=== PATIENT | male | born 1930 | race Caucasian/White ===

== ENCOUNTER 2016-07-18 05:22 | Inpatient (IN) | payer MEDICARE, OTHER ==
[~2016-07-18] VITALS: Ht 182.9 cm; Wt 74.4 kg
[2016-07-18] VITALS (18 sets, daily range): BP systolic 85–125; BP diastolic 49–85
--- NOTE | 2016-07-18 05:30 | NUR ---
86 yo male bb ra from snf. 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 pt ds to er bed by ems. pt gowned, placed on court monitor. skin warm and dry, rr even and unlabored. awaiting orders from proivder, will continue to montior
--- NOTE | 2016-07-18 05:40 | NUR ---
20g right hand iv started, blood sample obtained and sent to lab
[2016-07-18] MEDS ORDERED: ALBUTEROL FS 2.5 MG/3 ML VIAL.NEB ONE (05:41)
--- NOTE | 2016-07-18 05:42 | NUR ---
rt at bed side for breathing treatment
--- NOTE | 2016-07-18 05:42 | NUR ---
bg 141, notfied
[2016-07-18] MEDS ORDERED: ALBUTEROL FS 2.5 MG/3 ML VIAL.NEB NEB ONE (06:00)
[2016-07-18 06:04] LABS: BASOPHILS % (AUTO) 0.3 % (0.0-2.0); EOSINOPHILS # (AUTO) 0.2 /CMM (0.0-0.7); EOSINOPHILS % (AUTO) 1.6 % (0.0-6.0); HEMATOCRIT 32 % (39-51); HEMOGLOBIN 10.3 g/dL (13.5-17.5); LYMPHOCYTES # (AUTO) 2.8 /CMM (0.8-4.8); LYMPHOCYTES % (AUTO) 19.5 % (20.0-44.0); MEAN CORPUSCULAR HEMOGLOBIN 28 PG (26.0-33.0); MEAN CORPUSCULAR HGB CONC 32 g/dl (31.0-36.0); MEAN CORPUSCULAR VOLUME 85 fL (80-96); MONOCYTES # (AUTO) 0.4 /CMM (0.1-1.30); MONOCYTES % (AUTO) 2.5 % (2.0-12.0); NEUTROPHILS # (AUTO) 10.9 /CMM (1.8-8.9); NEUTROPHILS % (AUTO) 76.1 % (43.0-81.0); PLATELET COUNT (AUTO) 230 /CMM (150-450); RED BLOOD CELL COUNT(AUTO) 3.74 MIL/uL (4.5-6.0); WHITE BLOOD COUNT (AUTO) 14.3 K/uL (4.3-11.0)
--- NOTE | 2016-07-18 06:13 | NUR ---
quality assurance qa lab technician at bed side for x ray
[2016-07-18] MEDS ORDERED: CALC1TAB30 PO (06:14)
[2016-07-18] MEDS ORDERED: DONE23TA3 PO (06:14)
[2016-07-18] MEDS ORDERED: ICOS1CAP PO (06:14)
[2016-07-18] MEDS ORDERED: PANT40SU PO (06:14)
[2016-07-18] MEDS ORDERED: MIRT30TA7 PO (06:14)
[2016-07-18] MEDS ORDERED: CYAN250014 PO (06:14)
[2016-07-18] MEDS ORDERED: MELA1TAB15 PO (06:14)
[2016-07-18] MEDS ORDERED: ONDA4TAB8 SL (06:14)
[2016-07-18] MEDS ORDERED: MEMA10TA21 PO (06:14)
[2016-07-18] MEDS ORDERED: METF500T4 PO (06:14)
[2016-07-18] MEDS ORDERED: CELE-85 PO (06:14)
[2016-07-18] MEDS ORDERED: AMLO5TAB2 PO (06:14)
[2016-07-18 06:16] LABS: CALCIUM, SERUM 9.4 mg/dL (8.5-10.1); CARBON DIOXIDE 26 mmol/L (21-32); CHLORIDE 98 mmol/L (98-107); CREATININE 1.1 mg/dL (0.6-1.3); GLUCOSE 159 mg/dL (74-106); SODIUM SERUM 134 mmol/L (136-145); UREA NITROGEN, BLOOD 13 mg/dL (7-18)
[2016-07-18 06:20] LABS: INR 0.95 (0.87-1.13); PROTHROMBIN TIME 10.3 SECS (9.5-12.7)
[2016-07-18 06:24] LABS: TROPONIN I < 0.017 ng/mL (0.00-0.056)
[2016-07-18 06:27] LABS: LACTIC ACID 2.9 mmol/L (0.4-2.0)
[2016-07-18] MEDS ORDERED: IV NS 0.9% 500 ML IV ONE (06:27)
[2016-07-18] MEDS ORDERED: IV SET PRIMARY PUMP SET 1 EA INFUS.SET MC ONE ×3 (06:27→09:04)
[2016-07-18 06:29] LABS: ALANINE AMINOTRANSFERASE 16 U/L (12-78); ALBUMIN 3.1 g/dL (3.4-5.0); ALKALINE PHOSPHATASE 87 U/L (46-116); ASPARTATE AMINOTRANSFERASE 16 U/L (15-37); B-TYPE NATRIURETIC PEPTIDE 141 PG/ML (0-125); BILIRUBIN,DIRECT 0.1 mg/dL (0.0-0.2); BILIRUBIN,TOTAL 0.4 mg/dL (0.2-1.0); TOTAL PROTEIN, SERUM 8.2 g/dL (6.4-8.2)
[2016-07-18] MEDS ORDERED: IV NS 0.9% 500 ML BAG IV ONE (06:30)
--- NOTE | 2016-07-18 06:33 | NUR ---
medicated pt as ordered
[2016-07-18] MEDS ORDERED: CT SWABBABLE VALVE TRANS SET 1 EA INFUS.SET MC ONE (07:16)
[2016-07-18] MEDS ORDERED: IV NS 0.9% 250 ML IV ONE (07:16)
[2016-07-18] MEDS ORDERED: IOHEXOL-350 100 ML VIAL IV ONE (07:16)
--- NOTE | 2016-07-18 07:47 | NUR ---
TEMP 99.3 MD MADE AWARE.
[2016-07-18] MEDS ORDERED: PIPERACILLIN /TAZOBACTAM 3.375 G VIAL IV ONE (08:10)
[2016-07-18] MEDS ORDERED: ACETAMINOPHEN ES 500 MG TABLET ONE (08:16)
[2016-07-18] MEDS ORDERED: ACETAMINOPHEN ES 500 MG TABLET PO ONE (08:30)
[2016-07-18] MEDS: PIPERACILLIN /TAZOBACTAM 3.375 G in IV D5W 50 ML IV ONE ×2 (08:30→09:18)
--- NOTE | 2016-07-18 08:56 | NUR ---
GAVE REPORT TO LENA SAUNDERSMOLD SHEET CLEANER UNIT
--- NOTE | 2016-07-18 08:57 | NUR ---
DARCIE -- CALLED EPIC
[2016-07-18] MEDS ORDERED: IV NS 0.9% 1,000 ML BAG IV ONE ×2 (09:00→10:00)
[2016-07-18] MEDS ORDERED: VANCOMYCIN 1 GM in IV D5W 250 ML IV ONE (09:00)
[2016-07-18] MEDS ORDERED: IV NS 0.9% 1,000 ML ONE ×2 (09:04→09:40)
[2016-07-18 09:06] LABS: APPEARANCE,URINE CLEAR (CLEAR); BILIRUBIN,URINE NEGATIVE (NEGATIVE); BLOOD, URINE NEGATIVE Ery/uL (NEGATIVE); COLOR,URINE YELLOW (YELLOW); KETONES,URINE NEGATIVE (NEGATIVE); LEUKOCYTE ESTERASE ,URINE NEGATIVE (NEGATIVE); NITRITE, URINE NEGATIVE (NEGATIVE); PROTEIN,URINE NEGATIVE (NEGATIVE); UGLUCOSE NEGATIVE (NEGATIVE); UROBILINOGEN,URINE 0.2 EU/dL (0.2)
[2016-07-18] MEDS ORDERED: SECONDARY IV SET 1 EA INFUS.SET MC ONE ×3 (09:07→20:09)
--- NOTE | 2016-07-18 09:24 | NUR ---
[facility] CALLED, DR DAMICO ANTHROPOLOGY PROFESSOR [phone]
--- NOTE | 2016-07-18 10:11 | NUR ---
CALLED ICU SÁNCHEZ SAUNDERS GAVE REPORT
--- NOTE | 2016-07-18 10:45 | NUR ---
EYELET ROW MARKER; ADMIT RECEIVED PT FROM ER VIA GURNEY, RECEIVING LAST OF HIS NORMAL SALINE BOLUS PER SEPSIS PROTOCOL. PT IS AWAKE AND ORIENTD X3. PT DENIES ANY PAIN. PLACED PT ON DIESEL TRUCK DRIVER SHOWING SINUS TACHYCARDIA. IV SITES TO RIGHT AC 20G, RIGHT HAND 20G. PT IS CONTINENT OF URINE USING URINAL. NO ACUTE DISTRESS NOTED WILL CONTINUE TO MONITOR.
--- NOTE | 2016-07-18 10:45 | NUR ---
TRANSFER PT VIA GURNEY TO ICU ACLS PROTOCOL OBSERVED.
[2016-07-18] MEDS ORDERED: NORMAL SALINE FLUSH 10 ML SYR IV PRN (11:00)
[2016-07-18] MEDS ORDERED: ONDANSETRON HCL/PF 4 MG/2 ML VIAL IVP PRN (11:00)
[2016-07-18] MEDS: NORMAL SALINE FLUSH 10 ML SYR IV SCH ×3 (11:49→21:09)
[2016-07-18] MEDS: IV NS 0.9% 1,000 ML IV PRN (11:49)
[2016-07-18] MEDS ORDERED: PIPERACILLIN /TAZOBACTAM 4.5 G in IV D5W 50 ML IV SCH (12:00)
[2016-07-18] MEDS ORDERED: Z GUARD REMEDY 2 OZ OINT TP PRN ×2 (12:00→13:30)
[2016-07-18] MEDS ORDERED: VANCOMYCIN 1.25 GM in IV D5W 500 ML IV SCH (13:00)
[2016-07-18] MEDS ORDERED: Z GUARD REMEDY 4 OZ OINT TP PRN (13:00)
--- NOTE | 2016-07-18 13:00 | NUR ---
WOUND CARE CONSULT: PATIENT SEEN AND SKIN ASSESSMENT DONE. PATIENT ALERT, ORIENTED, ABLE TO MAKE NEEDS KNOWN, URGE INCONTINENCE, ABLE TO TURN AND REPOSITION INDEPENDENTLY HOWEVER NEEDS PROMPTING, PRIYANKA 16. SEE TODAY'S SKIN ASSESSMENT IN PCS ALONG WITH RECOMMENDATIONS DISCUSSED WITH NURSING STAFF INCLUDING MOISTURE PROTECTION WITH Z GUARD ORDERED, PROMPT PATIENT TO TURN AND REPOSITION EVERY 2 HRS PATIENT CONDITION PERMITS, OFFLOADING. MD IN AGREEMENT WITH PLAN OF CARE. Addendum: 07/18/16 at 1306 by ONELIA MATIAS WNDNU Amended: Links added.
[2016-07-18] MEDS ORDERED: FEE PK DOSING 1 MIN EA MC ONE (13:09)
[2016-07-18] MEDS: PIPERACILLIN /TAZOBACTAM 3.375 G in IV D5W 50 ML IV SCH ×3 (14:16→23:01)
--- NOTE | 2016-07-18 16:30 | NUR ---
SCHOOL SOCIAL WORKER; PRIMARY DR. DAMICO AT BEDSIDE UPDATE WAS GIVEN. DISCUSSED LACTIC RESULTS. NEW ORDER GIVEN TO REPEAT LACTIC ACID.
[2016-07-18] MEDS ORDERED: Z GUARD REMEDY 2 OZ OINT TP SCH (17:00)
--- NOTE | 2016-07-18 19:53 | NUR ---
DONOR RECRUITER NOTES RECEIVED PT IN BED. AWAKE. A/OX3. ON O2 VIA NC AT 2 LPM, RHONA WELL. TELE READS SR AT 85 BPM. NO S/S OF ACUTE DISTRESS. PT DENIES PAIN. FINISHING DINNER AT THIS TIME. IV LINES AT RIGHT HAND 20G, RIGHT AC 20G, RUNNING NS AT 100 ML/HR. ALL NEEDS MET. PT COMFORTABLY WATCHING TV. SIDE RAILS X2, CALL LIGHT WITHIN REACH.
[2016-07-18] MEDS: VANCOMYCIN 0.75 GM in IV D5W 250 ML IV SCH (20:39)
[2016-07-19] VITALS (24 sets, daily range): BP systolic 92–137; BP diastolic 51–85
[2016-07-19] MEDS: IV NS 0.9% 1,000 ML IV PRN ×2 (00:20→11:05)
[2016-07-19 04:59] LABS: BASOPHILS % (AUTO) 0.2 % (0.0-2.0); EOSINOPHILS # (AUTO) 0.4 /CMM (0.0-0.7); EOSINOPHILS % (AUTO) 3.7 % (0.0-6.0); HEMATOCRIT 28 % (39-51); HEMOGLOBIN 9.2 g/dL (13.5-17.5); LYMPHOCYTES % (AUTO) 8.5 % (20.0-44.0); MEAN CORPUSCULAR HEMOGLOBIN 28 PG (26.0-33.0); MEAN CORPUSCULAR HGB CONC 33 g/dl (31.0-36.0); MEAN CORPUSCULAR VOLUME 85 fL (80-96); MONOCYTES # (AUTO) 0.4 /CMM (0.1-1.30); MONOCYTES % (AUTO) 3.6 % (2.0-12.0); NEUTROPHILS # (AUTO) 10.3 /CMM (1.8-8.9); PLATELET COUNT (AUTO) 208 /CMM (150-450); RDW COEFFICIENT OF VARIATION 19.3 (11.5-15.0); RED BLOOD CELL COUNT(AUTO) 3.33 MIL/uL (4.5-6.0); WHITE BLOOD COUNT (AUTO) 12.3 K/uL (4.3-11.0)
[2016-07-19 05:14] LABS: CALCIUM, SERUM 8.4 mg/dL (8.5-10.1); MAGNESIUM 1.6 mg/dL (1.8-2.4); PHOSPHORUS 3.2 mg/dL (2.5-4.9); POTASSIUM 4.3 mmol/L (3.5-5.1)
[2016-07-19] MEDS: NORMAL SALINE FLUSH 10 ML SYR IV SCH ×3 (05:21→20:14)
[2016-07-19] MEDS: PIPERACILLIN /TAZOBACTAM 3.375 G in IV D5W 50 ML IV SCH ×3 (05:21→17:47)
--- NOTE | 2016-07-19 07:05 | NUR ---
SET UP MECHANIC HEADING MACHINES NOTES RECEIVED PATIENT AOX2 WITH EPISODES OF CONFUSION , NOT IN ACUTE DISTRESS , RESPIRATIONS EVEN AND UNLABORED , SPO2 OF 98% VIA RA , SR 85 ON BEDSIDE MONITOR , IV OF R HAND # 22 PATENT AND INTACT , IV OF NS @ 100ML/HR INFUSING WELL , ALL NEEDS ATTENDED , BED ON LOW AND LOCKED POSITION , SIDE RAILS X2 ,CALL LIGHT WITHIN REACH , HOB 35 WILL CONTINUE TO MONITOR
[2016-07-19] MEDS: VANCOMYCIN 0.75 GM in IV D5W 250 ML IV SCH (08:24)
[2016-07-19] MEDS: PANTOPRAZOLE 40 MG VIAL IV SCH (08:24)
[2016-07-19] MEDS ORDERED: Magnesium 1GM/D5W 100ML PREMIX 100 ML IV SCH (12:02)
[2016-07-19] MEDS ORDERED: SECONDARY IV SET 1 EA INFUS.SET MC ONE (12:17)
--- NOTE | 2016-07-19 12:30 | NUR ---
MOVIE OPERATOR NOTES DR DAMICO AT BEDSIDE , DISCUSSED PT LABS , STABLE V/S , ON RA SPO2 OF 100% , PER PULMO PT STABLE TO LEAVE ICU , FOLLOW UP HOME MEDICATIONS TO BE REVIEWED , MD AWARE OK TO TRANSFER TO TELE
[2016-07-19] MEDS: MULTIVITAMINS,THERAPEUTIC 1 UDTAB TABLET PO SCH (14:54)
--- NOTE | 2016-07-19 15:37 | NUR ---
PATIENT FINANCIAL SERVICES MANAGER NOTES CALLED DR DAMICO NOTIFIED PT IS POSITIVE FOR MRSA NARES , PER MD ORDER BACTROBAN Q12 APPLIED TO NARES , VERIFIED THAT PT IS DIABETIC , PER HER NOTES THAT CONTINUE ACCUCHECK ACHS BUT NO ORDER , PER MD START PT ON MILD ACHS SLIDING SCALE AND CONTINUE SOFT REGULAR DIET PT IS MALNOURISHED . ORDERS CARRIED OUT
[2016-07-19 15:52] LABS: IRON, SERUM 24 ug/dl (50-175); TOTAL IRON BINDING CAPACITY 254 ug/dl (250-450)
[2016-07-19] MEDS ORDERED: DEXTROSE 50%-WATER 50 ML DISP.SYRIN IV PRN (16:00)
[2016-07-19] MEDS ORDERED: IV NS 0.9% 250 ML IV ONE (17:37)
[2016-07-19] MEDS: BLOOD SUGAR DIAGNOSTIC 1 EACH STRIP IN SCH ×2 (17:47→21:42)
[2016-07-19] MEDS: MUPIROCIN OINT 2% 22 GM TUBE SCH (20:15)
--- NOTE | 2016-07-19 20:40 | NUR ---
MORTAR MIXER NOTES REPORT GIVEN TO CHIP ZHANG FOR TRANSFER TO TELE. PT TRANSFERRED TO ROOM 120-1 USING ACLS PROTOCOL. VSS.
--- NOTE | 2016-07-19 21:04 | NUR ---
TELE-1/DAYTIME CAREGIVER RECEIVED PT TRANSFER FROM ICU ACCOMPANIED BY ICU STAFF. PT PLACED IN ROOM 104-1. VSS AFEBRILE. WILL CONTINUE TO MONITOR.
[2016-07-19] MEDS: MIRTAZAPINE 15 MG TABLET PO SCH (21:42)
[2016-07-20] VITALS: BP 142/78
[2016-07-20] MEDS: PIPERACILLIN /TAZOBACTAM 3.375 G in IV D5W 50 ML IV SCH ×5 (00:16→23:46)
[2016-07-20 04:00] VITALS: BP 92/75
[2016-07-20] MEDS: NORMAL SALINE FLUSH 10 ML SYR IV SCH ×3 (04:59→20:31)
--- NOTE | 2016-07-20 06:28 | NUR ---
RN NOTE CALLED PT'S SON MIRA AND LEFT VOICEMAIL REGARDING PT'S TRANSFER TO TELE ON FIRST FLOOR CURRENTLY IN ROOM 104.
[2016-07-20] MEDS: BLOOD SUGAR DIAGNOSTIC 1 EACH STRIP IN SCH ×4 (06:33→22:15)
[2016-07-20] MEDS: INSULIN REGULAR, HUMAN 100 UNIT/ML 3 ML VIAL SQ PRN ×2 (06:34→16:41)
[2016-07-20 08:00] VITALS: BP 117/81
--- NOTE | 2016-07-20 08:00 | NUR ---
TELE1/RN AM SHIFT INITIAL NOTES RECEIVED PT AWAKE SITTING IN BED. NO ACUTE CHANGE OF CONDITION NOTED, NO FEVER. PT A/O X 3, DENIES OF ANY SYMPTOMS. ON ROOM AIR SATURATING @ 95%, LUNG SOUNDS CLEAR. ON TELE WITH SINUS RHYTHM, HR 79. IV SITE FLUSHED, PATENT, WITH NO S/S OF INFECTION. PT IS COMFORTABLE. SCHEDULED AM MEDS TO BE GIVEN. CL WITHIN REACHED AND SAFETY MAINTAINED. ON GOING MONITORING.
[2016-07-20 08:23] LABS: BASOPHILS % (AUTO) 0.3 % (0.0-2.0); EOSINOPHILS # (AUTO) 0.5 /CMM (0.0-0.7); EOSINOPHILS % (AUTO) 5.2 % (0.0-6.0); HEMATOCRIT 30 % (39-51); HEMOGLOBIN 9.8 g/dL (13.5-17.5); LYMPHOCYTES # (AUTO) 1.4 /CMM (0.8-4.8); LYMPHOCYTES % (AUTO) 16.1 % (20.0-44.0); MEAN CORPUSCULAR HEMOGLOBIN 28 PG (26.0-33.0); MEAN CORPUSCULAR HGB CONC 33 g/dl (31.0-36.0); MEAN CORPUSCULAR VOLUME 85 fL (80-96); MONOCYTES # (AUTO) 0.4 /CMM (0.1-1.30); MONOCYTES % (AUTO) 4.6 % (2.0-12.0); NEUTROPHILS # (AUTO) 6.6 /CMM (1.8-8.9); NEUTROPHILS % (AUTO) 73.8 % (43.0-81.0); PLATELET COUNT (AUTO) 241 /CMM (150-450); RED BLOOD CELL COUNT(AUTO) 3.55 MIL/uL (4.5-6.0); WHITE BLOOD COUNT (AUTO) 8.9 K/uL (4.3-11.0)
[2016-07-20] MEDS: MUPIROCIN OINT 2% 22 GM TUBE SCH ×2 (08:25→20:31)
[2016-07-20] MEDS: AMLODIPINE BESYLATE 5 MG TABLET PO SCH (08:25)
[2016-07-20] MEDS: PANTOPRAZOLE 40 MG VIAL IV SCH (08:25)
[2016-07-20] MEDS: MULTIVITAMINS,THERAPEUTIC 1 UDTAB TABLET PO SCH (08:25)
[2016-07-20 08:27] LABS: CREATININE 1.1 mg/dL (0.6-1.3); MAGNESIUM 1.9 mg/dL (1.8-2.4); PHOSPHORUS 3.1 mg/dL (2.5-4.9)
[2016-07-20 12:00] VITALS: BP 148/76
--- NOTE | 2016-07-20 15:16 | NUR ---
TELE1/RN HOME MEDS - XTANDI XTANDI 40MG TABLET, 24 COUNTS ENDORSED TO PHARMACY FOR DISPENSING.
[2016-07-20 16:00] VITALS: BP 143/81
[2016-07-20] MEDS: XTANDI 40 MG PO SCH (16:35)
[2016-07-20] MEDS: ACETAMINOPHEN 325 MG TABLET PO PRN (17:17)
--- NOTE | 2016-07-20 18:00 | NUR ---
TELE1/RN AFTERNOON ROUNDS NO ACUTE CHANGE OF CONDITION. ON GOING MONITORING.
--- NOTE | 2016-07-20 19:17 | NUR ---
TELE1/RN AM SHIFT END NOTES NO ACUTE CHANGE OF CONDITION NOTED DURING THE SHIFT. ALL NEEDS MET. ENDORSED TO PM NURSE TO CONTINUE CARE. CL WITHIN REACHED, SAFETY MAINTAINED AND ISOLATION OBSERVED.
[2016-07-20 20:00] VITALS: BP 117/68
[2016-07-20] MEDS: MIRTAZAPINE 15 MG TABLET PO SCH (22:09)
[2016-07-21] VITALS: BP 159/83
[2016-07-21] MEDS: ACETAMINOPHEN 325 MG TABLET PO PRN ×2 (02:49→21:49)
[2016-07-21 04:00] VITALS: BP 138/78
[2016-07-21] MEDS: NORMAL SALINE FLUSH 10 ML SYR IV SCH ×3 (05:19→21:43)
[2016-07-21] MEDS: PIPERACILLIN /TAZOBACTAM 3.375 G in IV D5W 50 ML IV SCH ×4 (05:20→23:56)
[2016-07-21] MEDS: BLOOD SUGAR DIAGNOSTIC 1 EACH STRIP IN SCH ×4 (06:32→22:34)
--- NOTE | 2016-07-21 07:00 | NUR ---
TELE1/RN AM SHIFT INITIAL NOTES RECEIVED PT AWAKE SITTING IN BED. NO ACUTE CHANGE OF CONDITION NOTED, NO FEVER. PT A/O X 3, DENIES OF ANY SYMPTOMS. ON ROOM AIR SATURATING @ 95%, LUNG SOUNDS CLEAR. ON TELE WITH SINUS RHYTHM. IV SITE FLUSHED, PATENT, WITH NO S/S OF INFECTION. PT IS COMFORTABLE. SCHEDULED AM MEDS TO BE GIVEN. CL WITHIN REACHED AND SAFETY MAINTAINED. ON GOING MONITORING.
[2016-07-21 08:00] VITALS: BP 127/77
[2016-07-21 08:43] LABS: CALCIUM, SERUM 9.1 mg/dL (8.5-10.1); CREATININE 0.9 mg/dL (0.6-1.3); POTASSIUM 4.8 mmol/L (3.5-5.1)
[2016-07-21] MEDS: MULTIVITAMINS,THERAPEUTIC 1 UDTAB TABLET PO SCH (08:56)
[2016-07-21] MEDS: AMLODIPINE BESYLATE 5 MG TABLET PO SCH (08:56)
[2016-07-21] MEDS: PANTOPRAZOLE 40 MG VIAL IV SCH (08:56)
[2016-07-21] MEDS: MUPIROCIN OINT 2% 22 GM TUBE SCH ×2 (08:57→21:44)
[2016-07-21] MEDS: XTANDI 40 MG PO SCH ×2 (09:06→16:28)
[2016-07-21 12:00] VITALS: BP 128/78
[2016-07-21 16:00] VITALS: BP 103/60
[2016-07-21 20:00] VITALS: BP 127/84
--- NOTE | 2016-07-21 20:00 | NUR ---
MS RN NOTE PT IN BED ASLEEP, AROUSABLE, A/O X 2, DANISH SPEAKING. NO SOB, NO DISTRESS OR DISCOMFORT NOTED. DENIES PAIN. H/L RT WRIST #20 G INTACT AND PATENT. Z GUARD APPLIED PERINEUM AND GLUTEAL EXCORIATION AREA. NO S/S OF HYPO OR HYPERGLYCEMIA NOTED. SIDE RAILS UP X 2 AND CALL LIGHT WITHIN REACH. VSS. CONTINUE TO MONITOR HIM.
[2016-07-21] MEDS: MIRTAZAPINE 15 MG TABLET PO SCH (21:45)
[2016-07-22 04:00] VITALS: BP 118/62
[2016-07-22] MEDS: NORMAL SALINE FLUSH 10 ML SYR IV SCH ×2 (05:20→12:29)
[2016-07-22] MEDS: PIPERACILLIN /TAZOBACTAM 3.375 G in IV D5W 50 ML IV SCH ×2 (05:29→12:14)
[2016-07-22] MEDS: BLOOD SUGAR DIAGNOSTIC 1 EACH STRIP IN SCH ×2 (05:36→12:29)
[2016-07-22] MEDS: INSULIN REGULAR, HUMAN 100 UNIT/ML 3 ML VIAL SQ PRN (06:00)
--- NOTE | 2016-07-22 06:33 | NUR ---
MS RN NOTE PT IN BED ASLEEP, AROUSABLE. NO DISTRESS OR DISCOMFORT NOTED. DENIES PAIN. H/L INTACT AND PATENT, NO S/S OF INFILTRATION NOTED. SIDE RAILS UP X 2 AND CALL LIGHT WITHIN REACH. WILL ENDORSE TO DAY SHIFT NURSE FOR CONTINUE TO CARE.
[2016-07-22 06:47] LABS: BASOPHILS % (AUTO) 0.5 % (0.0-2.0); EOSINOPHILS # (AUTO) 0.5 /CMM (0.0-0.7); EOSINOPHILS % (AUTO) 7.8 % (0.0-6.0); HEMATOCRIT 31 % (39-51); LYMPHOCYTES # (AUTO) 1.4 /CMM (0.8-4.8); MEAN CORPUSCULAR HEMOGLOBIN 28 PG (26.0-33.0); MEAN CORPUSCULAR HGB CONC 33 g/dl (31.0-36.0); MEAN CORPUSCULAR VOLUME 84 fL (80-96); MONOCYTES # (AUTO) 0.4 /CMM (0.1-1.30); MONOCYTES % (AUTO) 6.6 % (2.0-12.0); NEUTROPHILS # (AUTO) 3.7 /CMM (1.8-8.9); NEUTROPHILS % (AUTO) 62.1 % (43.0-81.0); PLATELET COUNT (AUTO) 249 /CMM (150-450); RDW COEFFICIENT OF VARIATION 19.4 (11.5-15.0); RED BLOOD CELL COUNT(AUTO) 3.63 MIL/uL (4.5-6.0)
[2016-07-22 07:20] LABS: MAGNESIUM 1.8 mg/dL (1.8-2.4)
[2016-07-22 08:00] VITALS: BP 127/81
[2016-07-22 08:41] VITALS: BP 128/74
[2016-07-22] MEDS: AMLODIPINE BESYLATE 5 MG TABLET PO SCH (08:41)
[2016-07-22] MEDS: MULTIVITAMINS,THERAPEUTIC 1 UDTAB TABLET PO SCH (08:41)
[2016-07-22] MEDS: MUPIROCIN OINT 2% 22 GM TUBE SCH (08:42)
[2016-07-22] MEDS: XTANDI 40 MG PO SCH (08:45)
[2016-07-22] MEDS: PANTOPRAZOLE 40 MG VIAL IV SCH (09:18)
--- NOTE | 2016-07-22 12:01 | NUR ---
RN NOTES RECEIVED PT FROM ORACLE FUSION MIDDLEWARE ARCHITECT, PT ON ROM AIR, NO SOB NOTED, IV LINE PULLED OUT, NEW IV RESTARTED, IV MEDS GIVEN ORDERED, PT IS ABOUT TO BE DISCHARGED, CALL LIGHT WITHIN REACH, BED IN LOW AND LOCKED POSITION, BED ALARM ON, WILL CONTINUE TO MONITOR.
[2016-07-22] MEDS ORDERED: MUPI22OI7 (12:21)
--- NOTE | 2016-07-22 15:13 | NUR ---
RN NOTE PT DISCHARGED HOME WITH HOME HEALTH, PT IS STABLE, LEAVING WITH SON WITH WHEELCHAIR, IV REMOVED, ID BAND REMOVED, EXIT CARE DONE, DISCHARGE INSTRUCTIONS PROVIDED, PICTURES TAKEN. BELONGINGS LIST SIGNED AND PROVIDED TO PT'S SON.
== END 2016-07-22 15:32 | disposition home health service (06) | DRG 871 ==
LOC: ER 05:24 → TELE 08:40 → ICU 09:19 → TELE1 07-19 20:40 → MEDSG1 07-21 13:40
PROVIDERS: ADMIT Internal Medicine; ATTEND Internal Medicine
DX: A41.9 Sepsis, unspecified organism (principal); G93.40 Encephalopathy, unspecified; E46 Unspecified protein-calorie malnutrition; E11.9 Type 2 diabetes mellitus without complications; E78.5 Hyperlipidemia, unspecified; F03.90 Unspecified dementia, unspecified severity, without behavioral disturbance, psychotic disturbance, mood disturbance, and anxiety; I25.10 Atherosclerotic heart disease of native coronary artery without angina pectoris; K21.9 Gastro-esophageal reflux disease without esophagitis; Z79.84 Long term (current) use of oral hypoglycemic drugs; Z85.46 Personal history of malignant neoplasm of prostate; Z87.11 Personal history of peptic ulcer disease; Z87.891 Personal history of nicotine dependence; Z90.49 Acquired absence of other specified parts of digestive tract; I10 Essential (primary) hypertension; D63.8 Anemia in other chronic diseases classified elsewhere; F09 Unspecified mental disorder due to known physiological condition; R91.8 Other nonspecific abnormal finding of lung field; Z68.22 Body mass index [BMI] 22.0-22.9, adult; Z22.322 Carrier or suspected carrier of Methicillin resistant Staphylococcus aureus; N28.1 Cyst of kidney, acquired
CPT/HCPCS: 36415; 71010-TC; 80048-TC; 80076-TC; 80202-TC; 81000-TC; 82746; 82962-TC; 83540-TC; 83605-TC; 83735-TC; 83880; 84100-TC; 84484-TC; 85025-TC; 85730-TC; 87040-TC; 87081-TC; 87086-TC; 87400; 93307-TC; 97001-TC; 97116-TC; 97530-TC; A4216; A4606; C9113; J1815; J2543; J3370; J3475; J7030; J7040; J7050; J7060; Q9967; Z7610

== ENCOUNTER 2016-08-03 12:25 | Inpatient (IN) | payer MEDICARE, OTHER ==
[~2016-08-03] VITALS: Ht 180.3 cm; Wt 69.4 kg
[~2016-08-03 12:25] MED LIST: AMLO5TAB2 PO; CALC1TAB30 PO; CELE-85 PO; CYAN250014 PO; DONE23TA3 PO; ICOS1CAP PO; MELA1TAB15 PO; MEMA10TA21 PO; METF500T4 PO; MIRT30TA7 PO; MUPI22OI7; ONDA4TAB8 SL; PANT40SU PO
--- NOTE | 2016-08-03 12:41 | NUR ---
PT REC'D TO ER VIA EMS SOB FEVER 100 CHILLS WAS AT [facility] ONE WEEK AGO IV STARTED LEFT WRIST 20G IVP LABS AND CULTURES DRAWN SENT TO LAB O2 SATS 99 N/C 2L 99% AWAITING EVALUATION BY ER PROVIDER.
--- NOTE | 2016-08-03 12:43 | NUR ---
FAMILY AT BEDSIDE . PT LIVES AT HOME WITH RELATIVES
[2016-08-03] MEDS ORDERED: IV NS 0.9% 1,000 ML ONE (12:48)
[2016-08-03] MEDS ORDERED: IV SET PRIMARY PUMP SET 1 EA INFUS.SET MC ONE (12:48)
[2016-08-03 12:51] LABS: BASOPHILS # (AUTO) 0.3 /CMM (0.0-0.2); BASOPHILS % (AUTO) 1.6 % (0.0-2.0); EOSINOPHILS # (AUTO) 0.2 /CMM (0.0-0.7); EOSINOPHILS % (AUTO) 1.3 % (0.0-6.0); HEMATOCRIT 34 % (39-51); LYMPHOCYTES # (AUTO) 1.2 /CMM (0.8-4.8); LYMPHOCYTES % (AUTO) 7.6 % (20.0-44.0); MEAN CORPUSCULAR HEMOGLOBIN 27 PG (26.0-33.0); MEAN CORPUSCULAR HGB CONC 32 g/dl (31.0-36.0); MEAN CORPUSCULAR VOLUME 85 fL (80-96); MONOCYTES # (AUTO) 0.2 /CMM (0.1-1.30); MONOCYTES % (AUTO) 1.2 % (2.0-12.0); NEUTROPHILS # (AUTO) 14.2 /CMM (1.8-8.9); NEUTROPHILS % (AUTO) 88.3 % (43.0-81.0); PLATELET COUNT (AUTO) 267 /CMM (150-450); RDW COEFFICIENT OF VARIATION 17.8 (11.5-15.0); RED BLOOD CELL COUNT(AUTO) 4.01 MIL/uL (4.5-6.0); WHITE BLOOD COUNT (AUTO) 16.1 K/uL (4.3-11.0)
[2016-08-03 12:53] LABS: CARBON DIOXIDE 25 mmol/L (21-32); CHLORIDE 98 mmol/L (98-107); GLUCOSE 144 mg/dL (74-106); POTASSIUM 4.2 mmol/L (3.5-5.1); SODIUM SERUM 132 mmol/L (136-145); UREA NITROGEN, BLOOD 17 mg/dL (7-18)
--- NOTE | 2016-08-03 12:58 | NUR ---
CALLED NURSING SUP. FOR TELE BED
[2016-08-03] MEDS ORDERED: ACETAMINOPHEN ES 500 MG TABLET PO ONE (13:00)
[2016-08-03] MEDS ORDERED: IV NS 0.9% 1,000 ML BAG IV ONE ×2 (13:00→16:30)
[2016-08-03] MEDS ORDERED: VANCOMYCIN 1 GM in IV D5W 250 ML IV ONE ×2 (13:00→16:30)
[2016-08-03] MEDS ORDERED: PIPERACILLIN /TAZOBACTAM 3.375 G in IV D5W 50 ML IV ONE (13:00)
--- NOTE | 2016-08-03 13:00 | NUR ---
PT GIVEN TYENOL 1000MG PO AND IV FLUIDS GIVEN BOLUS NS PER MD
[2016-08-03 13:01] LABS: TROPONIN I < 0.017 ng/mL (0.00-0.056)
[2016-08-03 13:05] LABS: ALANINE AMINOTRANSFERASE 15 U/L (12-78); ALBUMIN 3.3 g/dL (3.4-5.0); ALKALINE PHOSPHATASE 79 U/L (46-116); ASPARTATE AMINOTRANSFERASE 23 U/L (15-37); B-TYPE NATRIURETIC PEPTIDE 150 PG/ML (0-125); BILIRUBIN,DIRECT 0.1 mg/dL (0.0-0.2); BILIRUBIN,TOTAL 0.3 mg/dL (0.2-1.0); TOTAL PROTEIN, SERUM 8.6 g/dL (6.4-8.2)
--- NOTE | 2016-08-03 13:05 | NUR ---
PT GIVEN MEDS IV PER MD ORDER RT WRIST IV STARTED 22GIVP HEPLOCKED
[2016-08-03] MEDS ORDERED: ACETAMINOPHEN ES 500 MG TABLET ONE (13:15)
--- NOTE | 2016-08-03 13:28 | NUR ---
DR.[facility] INTER[facility]
[2016-08-03 13:35] LABS: INR 0.96 (0.87-1.13)
--- NOTE | 2016-08-03 13:35 | NUR ---
PT UA GIVEN SENT TO LAB PENDING XRAY RESULTS LATIC ACID 2.8 NOTIFIED . AWAITING EVALUATION BY ER PROVIDER.
[2016-08-03] MEDS ORDERED: DONE5TAB34 PO (13:40)
--- NOTE | 2016-08-03 13:40 | NUR ---
PT GOING TO TELE 110, AUGUSTIN IS THE NURSE
--- NOTE | 2016-08-03 13:44 | NUR ---
[facility] REPAGED
[2016-08-03 13:48] LABS: LACTIC ACID 2.8 mmol/L (0.4-2.0)
[2016-08-03 13:59] LABS: APPEARANCE,URINE CLEAR (CLEAR); BILIRUBIN,URINE NEGATIVE (NEGATIVE); BLOOD, URINE TRACE-INTA Ery/uL (NEGATIVE); COLOR,URINE YELLOW (YELLOW); KETONES,URINE NEGATIVE (NEGATIVE); LEUKOCYTE ESTERASE ,URINE NEGATIVE (NEGATIVE); NITRITE, URINE NEGATIVE (NEGATIVE); PROTEIN,URINE NEGATIVE (NEGATIVE); UGLUCOSE NEGATIVE (NEGATIVE); UROBILINOGEN,URINE 0.2 EU/dL (0.2)
--- NOTE | 2016-08-03 14:24 | NUR ---
CALLED REPORT TO FLOOR PT STABLE FOR TRANSFER
[2016-08-03 15:00] VITALS: BP 141/67
--- NOTE | 2016-08-03 15:00 | NUR ---
RN NOTES RECEIVED PT FROM ER IN ROOM 105 ,A/Ox3, FARSI SPEAKING, RESPIRATION EVEN AND UNLABORED, ON 02 2L N/C, DENIES ANY DISTRESS AT THIS TIME . T= 98.5. L WRIST G 20 AND R WRIST #22 IV SITES CDI, ON TELE HR 120'S ST , SR UP x3, BED LOCKED AND IN LOW POSITION , REDNESS NOTED TO SACRAL AREA AND BRUISING ON R UPPER ARM AND R HIP AND R KNEE , ADMISSION SKIN PHOTO TAKE AND PLACED IN THE CHART. CONTINUE TO MONITOR PT CLOSELY AND NOTIFY MD FOR ANY SIGNIFICANT CHANGES
[2016-08-03 15:16] LABS: ADD URINE CULTURE NO; BACTERIA,URINE None seen /HPF (None Seen); SQUAMOUS EPITHELIAL CELL,UR Rare /HPF (None Seen); WBC,URINE 0-2 /HPF (0-3)
[2016-08-03 16:00] VITALS: BP 135/68
[2016-08-03] MEDS ORDERED: ONDANSETRON HCL/PF 4 MG/2 ML VIAL IVP PRN (16:30)
[2016-08-03] MEDS ORDERED: SECONDARY IV SET 1 EA INFUS.SET MC ONE (16:34)
[2016-08-03] MEDS ORDERED: FEE PK DOSING 1 MIN EA MC ONE (17:02)
[2016-08-03] MEDS: PIPERACILLIN /TAZOBACTAM 3.375 G in IV D5W 50 ML IV SCH ×2 (17:57→22:34)
--- NOTE | 2016-08-03 18:31 | NUR ---
RN NOTES PT AT REST RECEIVING IVF NS BOLUS , DR SHELDON NOTIFIED REGARDING LA =2.6. PT MEDICATED PER MD ORDER, VSS STABLE, PT BRUNO ANY DISTRESS AT THIS TIME, NO SIGNIFICANT CHANGES NOTED ON THIS SHIFT
[2016-08-03] MEDS ORDERED: PIPERACILLIN /TAZOBACTAM 3.375 G in IV D5W 50 ML IV SCH (19:00)
[2016-08-03 20:00] VITALS: BP 103/66
[2016-08-04] VITALS: BP 98/59
[2016-08-04] MEDS: VANCOMYCIN 0.75 GM in IV D5W 250 ML IV SCH ×2 (00:32→12:00)
[2016-08-04] MEDS ORDERED: SECONDARY IV SET 1 EA INFUS.SET MC ONE (00:33)
[2016-08-04] MEDS ORDERED: IV NS 0.9% 250 ML IV ONE ×2 (00:33→16:07)
[2016-08-04 03:17] LABS: EOSINOPHILS # (AUTO) 0.6 /CMM (0.0-0.7); EOSINOPHILS % (AUTO) 3.4 % (0.0-6.0); HEMATOCRIT 29 % (39-51); HEMOGLOBIN 9.5 g/dL (13.5-17.5); LYMPHOCYTES # (AUTO) 1.5 /CMM (0.8-4.8); MEAN CORPUSCULAR HEMOGLOBIN 28 PG (26.0-33.0); MEAN CORPUSCULAR HGB CONC 33 g/dl (31.0-36.0); MEAN CORPUSCULAR VOLUME 85 fL (80-96); MONOCYTES # (AUTO) 0.5 /CMM (0.1-1.30); MONOCYTES % (AUTO) 2.8 % (2.0-12.0); NEUTROPHILS # (AUTO) 14.1 /CMM (1.8-8.9); NEUTROPHILS % (AUTO) 84.8 % (43.0-81.0); PLATELET COUNT (AUTO) 245 /CMM (150-450); RDW COEFFICIENT OF VARIATION 19.2 (11.5-15.0); RED BLOOD CELL COUNT(AUTO) 3.39 MIL/uL (4.5-6.0); WHITE BLOOD COUNT (AUTO) 16.6 K/uL (4.3-11.0)
[2016-08-04 03:32] LABS: ALANINE AMINOTRANSFERASE 11 U/L (12-78); ALBUMIN 2.4 g/dL (3.4-5.0); ALKALINE PHOSPHATASE 65 U/L (46-116); ASPARTATE AMINOTRANSFERASE 15 U/L (15-37); BILIRUBIN,TOTAL 0.5 mg/dL (0.2-1.0); CALCIUM, SERUM 8.8 mg/dL (8.5-10.1); CARBON DIOXIDE 28 mmol/L (21-32); CHLORIDE 104 mmol/L (98-107); CREATININE 0.9 mg/dL (0.6-1.3); GLUCOSE 123 mg/dL (74-106); POTASSIUM 4.1 mmol/L (3.5-5.1); SODIUM SERUM 139 mmol/L (136-145); UREA NITROGEN, BLOOD 10 mg/dL (7-18)
[2016-08-04 03:35] LABS: TROPONIN I < 0.017 ng/mL (0.00-0.056)
[2016-08-04 04:00] VITALS: BP 103/85
[2016-08-04] MEDS: PIPERACILLIN /TAZOBACTAM 3.375 G in IV D5W 50 ML IV SCH ×4 (04:31→23:06)
--- NOTE | 2016-08-04 05:00 | NUR ---
MOTOR VEHICLES INSPECTOR - REC'D PT. LAST NOC, DROWSY, EASILY AROUSABLE. PT'S SON-MIRA AT BS. HE STATED THAT HE FORGOT TO MENTION THE MED. "[id number]'"-ON HIS HOME MEDS LIST. PT. IS ON O2/2L/NC W. O2 SATS >96%. T-MAX = 99.0 AX. ALL PULSES PALPABLE. PT.IS DIAPERED/INCONTINENT. POOR APPETITE. PIV'S X 2 ARE BOTH PATENT TO FLUSH. PT. HAS LACTIC ACID LAB DRAWS Q 6 HRS. THEY ARE TRENDING DOWN. A COMP. BEDBATH ADM. AT 23:00. CONT. POC.
--- NOTE | 2016-08-04 05:30 | NUR ---
LIVESTOCK FEEDER - 3AM LACTIC ACID = 1.8. TRENDING DOWN. NOTED.
[2016-08-04 08:00] VITALS: BP 93/53
--- NOTE | 2016-08-04 08:00 | NUR ---
satellite television installer note patient in bed , all needs attended ,on 2l o23 via nc sat 98% lt wrist and rt wrist hl intact , no s\si infection noted , bed in lowest and locked position will cont to monitor closely no sob noted call light within reach ,plan of care discussed with patent
[2016-08-04 09:14] LABS: CALCIUM, SERUM 8.9 mg/dL (8.5-10.1); CREATININE 0.9 mg/dL (0.6-1.3); POTASSIUM 4.1 mmol/L (3.5-5.1)
--- NOTE | 2016-08-04 09:40 | NUR ---
INDER SAUNDERS NOTE HAVING BREAKFAST , ABLE TO EAT HI ATE 755 OG DIET , WILL CONT TO MONITOR CLOSELY Addendum: 08/04/16 at 0941 by JOSE ZAYAS RN ABLE TO EAT SELF
[2016-08-04 12:00] VITALS: BP 115/67
--- NOTE | 2016-08-04 12:00 | NUR ---
REGULATION SUPERVISOR NOTE HAVING LUNCH , ABLE TO EAT SELF , NOT IN ACUTE DISTRES
--- NOTE | 2016-08-04 14:00 | NUR ---
HYPERION ADMINISTRATOR NOTE PER RAMANA STAY DNP OK TO PLACE DVT PUMPS, ALSO PER FAMILY REQUEST GAVE PHONE NUMBER OF SON ,TO RAMANA HARO , HE WANTS TO TALK WITH HIM
--- NOTE | 2016-08-04 14:56 | NUR ---
PIPE CLEANER NOTE INFORM RAMANA HARO DNP TO CHECK MEDRECON
[2016-08-04 16:00] VITALS: BP_SYST 131; BP_DIAS 67; BP_DIAS 68
[2016-08-04] MEDS: ACETAMINOPHEN 325 MG TABLET PO PRN ×2 (16:06→23:09)
--- NOTE | 2016-08-04 16:20 | NUR ---
CHAR FILTER TANK TENDER HEAD NOTE C\O BACK PAIN TYLENOL PO GIVEN ORDERED
--- NOTE | 2016-08-04 17:38 | NUR ---
television analyzer note family at bedside,not in acute distress
--- NOTE | 2016-08-04 19:30 | NUR ---
LUMBER STACKER OPERATOR INITIAL NOTES RECEIVED PATIENT AWAKE, DENIES PAIN OR DISCOMFORT. NO RESPIRATORY DISTRESS NOTED 2LPMO2 VIA NC. SKIN WARM AND DRY TO TOUCH. ON TELE MONITOR SINUS RHYTHM. WITH LW 20G PATENT AND INTACT TKO. SIDE RAILS UP AND LOCKED. BED KEPT AT LOWEST POSITION. CALL LIGHT KEPT WITHIN EASY REACH. CALL LIGHT KEPT WITHIN EASY REACH. WILL CONTINUE TO MONITOR.
[2016-08-04 20:00] VITALS: BP 111/62
[2016-08-05] VITALS: BP 123/64
[2016-08-05] MEDS: VANCOMYCIN 0.75 GM in IV D5W 250 ML IV SCH ×2 (01:06→13:39)
[2016-08-05 04:00] VITALS: BP 132/71
[2016-08-05] MEDS ORDERED: IV NS 0.9% 250 ML IV ONE (04:56)
[2016-08-05] MEDS: PIPERACILLIN /TAZOBACTAM 3.375 G in IV D5W 50 ML IV SCH ×4 (05:14→23:33)
--- NOTE | 2016-08-05 06:13 | NUR ---
PHP DEVELOPER CLOSING NOTES NO SIGNIFICANT CHANGES OVERNIGHT. ALL NEEDS ANTICIPATED AND MET. ALL DUE MEDS GIVEN. NO RESPIRATORY DISTRESS NOTED. ON 2LPMO2 VIA NC. KEPT CLEAN AND DRY. TURNED AND REPOSITIONED Q2 AND PRN. PATIENT ABLE TO MAKE NEEDS KNOWN. SIDE RAILS UP AND LOCKED. BED KEPT AT LOWEST POSITION. CALL LIGHT KEPT WITHIN EASY REACH. BED ALARM ON. HOB ELEVATED. WILL ENDORSE CONTINUITY OF CARE TO AM NURSE.
[2016-08-05 06:49] LABS: BASOPHILS % (AUTO) 0.2 % (0.0-2.0); EOSINOPHILS # (AUTO) 0.5 /CMM (0.0-0.7); EOSINOPHILS % (AUTO) 6.9 % (0.0-6.0); HEMATOCRIT 29 % (39-51); HEMOGLOBIN 9.4 g/dL (13.5-17.5); LYMPHOCYTES # (AUTO) 1.2 /CMM (0.8-4.8); LYMPHOCYTES % (AUTO) 17.9 % (20.0-44.0); MEAN CORPUSCULAR HEMOGLOBIN 28 PG (26.0-33.0); MEAN CORPUSCULAR HGB CONC 33 g/dl (31.0-36.0); MEAN CORPUSCULAR VOLUME 84 fL (80-96); MONOCYTES # (AUTO) 0.3 /CMM (0.1-1.30); NEUTROPHILS # (AUTO) 4.6 /CMM (1.8-8.9); PLATELET COUNT (AUTO) 231 /CMM (150-450); RDW COEFFICIENT OF VARIATION 18.9 (11.5-15.0); RED BLOOD CELL COUNT(AUTO) 3.37 MIL/uL (4.5-6.0); WHITE BLOOD COUNT (AUTO) 6.5 K/uL (4.3-11.0)
--- NOTE | 2016-08-05 07:15 | NUR ---
RN INITIAL NOTES PT IS IN BED, HOB ELEVATED AT 35 DEGREES. SIDERAILS X3, A/O X2, REORIENT PT TO ROOM, PT IS ON 2L NS, SATURATION OF 98%, IV SITES IS PATENTNO SIGNS AND SYMPTOMS OF INFECTION OR INFILTRATION. CALL LIGHTS WITHIN REACH.
[2016-08-05 07:21] LABS: CALCIUM, SERUM 8.6 mg/dL (8.5-10.1); CREATININE 0.9 mg/dL (0.6-1.3); MAGNESIUM 1.7 mg/dL (1.8-2.4); PHOSPHORUS 3.2 mg/dL (2.5-4.9); POTASSIUM 3.9 mmol/L (3.5-5.1)
[2016-08-05 08:00] VITALS: BP 117/72
--- NOTE | 2016-08-05 08:56 | NUR ---
WOUND CARE CONSULT: PT PRESENTS WITH GLUTEAL CREASE EXCORIATION, PRESENT ON ADMISSION. PT ABLE TO ASSIST WITH TURNING AND REPOSITIONING IN BED WHEN PROMPTED. PT ON BAKARI ISOFLEX LOW AIRLOSS BED. PT NOTED TO HAVE SACRAL DIMPLE. ALL SKIN PROTECTION MEASURES IN PLACE AND DISCUSSED WITH NURSING STAFF. IN AGREEMENT WITH PLAN OF CARE. Addendum: 08/05/16 at 0859 by MIGUELANGEL KHOURY WNDNU Amended: Links added.
[2016-08-05] MEDS: Magnesium 1GM/D5W 100ML PREMIX 100 ML IV SCH ×2 (10:18→11:41)
[2016-08-05] MEDS: Z GUARD REMEDY 2 OZ OINT TP SCH (10:18)
[2016-08-05] MEDS ORDERED: SECONDARY IV SET 1 EA INFUS.SET MC ONE (10:21)
--- NOTE | 2016-08-05 14:25 | NUR ---
RN NOTES: Seen and examined by Dr. Joesph Chavez today with NNO. MD informed to reconcile medications.
[2016-08-05 16:00] VITALS: BP_SYST 144; BP_DIAS 80; BP_DIAS 88
--- NOTE | 2016-08-05 19:28 | NUR ---
RN CLOSING NOTES PT IS IN BED, NO SIGNS AND SYMPTOMS OF DISTRESS NOTED, PT IS ON 2L NC, SATURATION OF 99%, PT WAS ASSISTED WITH TURNING AND REPOSITIONING, IV SITES PATENT, NO SIGNS AND SYMPTOMS OF INFECTION/INFILTRATION NOTED, ALL MEDICATIONS GIVEN AND PT TOLERATED IT WELL. SAFETY MEASURES MAINTAINED, CALL LIGHTS WITHIN REACH. ENDORSED TO THE NIGHT NURSE
[2016-08-05 20:00] VITALS: BP 135/69
--- NOTE | 2016-08-05 20:08 | NUR ---
MS RN PT IN BED AWAKE. A/O X 2 ARABIC SPEAKING. NO SOB, NO DISTRESS OR DISCOMFORT NOTED. DENIES PAIN. REMAIN ON O2 2L VIA NC O2 SAT 94%. KEPT HOB ELEVATED. L WRIST #20 G SL WITH TKO. NO S/S OF INFILTRATION NOTED. SIDE RAILS UP X 2 AND CALL LIGHT WITHIN REACH. VSS. CONTINUE TO MONITOR HIM.
[2016-08-05] MEDS: MIRTAZAPINE 15 MG TABLET PO SCH (21:35)
[2016-08-05] MEDS: ACETAMINOPHEN 325 MG TABLET PO PRN (21:35)
--- NOTE | 2016-08-05 21:35 | NUR ---
MS RN PT C/O HEADACHE 07/12, TYLENOL 650 MG PO GIVEN. CONTINUE TO MONITOR HIM.
[2016-08-05 22:00] VITALS: BP 135/69
--- NOTE | 2016-08-05 22:35 | NUR ---
MS RN HEADACHE SUBSIDED 05/14. PT FALL ASLEEP, AROUSABLE.
[2016-08-06] MEDS: VANCOMYCIN 0.75 GM in IV D5W 250 ML IV SCH ×2 (01:03→14:11)
[2016-08-06 04:00] VITALS: BP 125/74
[2016-08-06] MEDS: PIPERACILLIN /TAZOBACTAM 3.375 G in IV D5W 50 ML IV SCH ×4 (04:18→22:16)
[2016-08-06] MEDS: ACETAMINOPHEN 325 MG TABLET PO PRN ×2 (04:18→08:30)
--- NOTE | 2016-08-06 04:20 | NUR ---
MS RN PT C/O HEADACHE 07/12, TYLENOL 650 MG PO GIVEN. CONTINUE TO MONITOR HIM.
--- NOTE | 2016-08-06 05:20 | NUR ---
MS RN HEADACHE SUBSIDED 05/14. PT FALL ASLEEP. NO DISTRESS NOTED.
[2016-08-06 06:36] LABS: BASOPHILS % (AUTO) 0.3 % (0.0-2.0); EOSINOPHILS # (AUTO) 0.4 /CMM (0.0-0.7); EOSINOPHILS % (AUTO) 6.5 % (0.0-6.0); HEMATOCRIT 29 % (39-51); HEMOGLOBIN 9.4 g/dL (13.5-17.5); LYMPHOCYTES # (AUTO) 1.3 /CMM (0.8-4.8); LYMPHOCYTES % (AUTO) 20.3 % (20.0-44.0); MEAN CORPUSCULAR HEMOGLOBIN 28 PG (26.0-33.0); MEAN CORPUSCULAR HGB CONC 33 g/dl (31.0-36.0); MEAN CORPUSCULAR VOLUME 84 fL (80-96); MONOCYTES # (AUTO) 0.4 /CMM (0.1-1.30); MONOCYTES % (AUTO) 5.4 % (2.0-12.0); NEUTROPHILS # (AUTO) 4.4 /CMM (1.8-8.9); NEUTROPHILS % (AUTO) 67.5 % (43.0-81.0); PLATELET COUNT (AUTO) 227 /CMM (150-450); RDW COEFFICIENT OF VARIATION 18.9 (11.5-15.0); WHITE BLOOD COUNT (AUTO) 6.6 K/uL (4.3-11.0)
--- NOTE | 2016-08-06 06:45 | NUR ---
MS RN NOTE PT IN BED ASLEEP, AROUSABLE. NO DISTRESS OR DISCOMFORT NOTED. DENIES PAIN. SIDE RAILS UP X 2 AND CALL LIGHT WITHIN REACH. WILL ENDORSE TO DAY SHIFT NURSE FOR CONTINUE TO CARE.
[2016-08-06 07:13] LABS: CALCIUM, SERUM 8.6 mg/dL (8.5-10.1); CREATININE 0.9 mg/dL (0.6-1.3); PHOSPHORUS 3.2 mg/dL (2.5-4.9); POTASSIUM 3.9 mmol/L (3.5-5.1)
--- NOTE | 2016-08-06 07:20 | NUR ---
RN INITIAL NOTES PT IS IN BED, HOB ELEVATED AT 35 DEGREES. SIDERAILS X3, A/O X2, REORIENT PT TO ROOM NO SIGNS AND SYMPTOMS OF DISTRESS NOTED. IV 20G LEFT WRIST SITES IS PATENT, NO SIGNS AND SYMPTOMS OF INFECTION OR INFILTRATION. CALL LIGHTS WITHIN REACH
[2016-08-06 08:00] VITALS: BP 131/74
[2016-08-06] MEDS: MEMANTINE HCL 5 MG TABLET PO SCH ×2 (08:22→16:35)
[2016-08-06] MEDS: DONEPEZIL 5 MG TABLET PO SCH (08:23)
[2016-08-06] MEDS: AMLODIPINE BESYLATE 5 MG TABLET PO SCH (08:26)
[2016-08-06] MEDS: Z GUARD REMEDY 2 OZ OINT TP SCH (08:29)
[2016-08-06] MEDS ORDERED: LEVO500T15 PO (13:47)
[2016-08-06 16:00] VITALS: BP 134/74
--- NOTE | 2016-08-06 18:55 | NUR ---
RN CLOSING NOTES PT IS IN BED, NO SIGNS AND SYMPTOMS OF DISTRESS NOTED, PT IS ON 2L NC, SATURATING WELL, PT WAS ASSISTED WITH TURNING AND REPOSITIONING, IV SITES PATENT, NO SIGNS AND SYMPTOMS OF INFECTION/INFILTRATION NOTED, ALL MEDICATIONS GIVEN AND PT TOLERATED IT WELL. SAFETY MEASURES MAINTAINED, CALL LIGHTS WITHIN REACH. ENDORSED TO THE NIGHT NURSE
--- NOTE | 2016-08-06 19:15 | NUR ---
RN INITIAL NOTES RECEIVED PATIENT IN BED, SLEEPING COMFORTABLY. PATIENT WITH NO DISTRESS / DISCOMFORT OBSERVED. ON 2LPM OF O2 VIA NC, RESPIRATION IS EVEN AND UNLABORED WITH NO DISTRESS. WITH L WRIST G20, FLUSHED AND PATENT, NO SIGNS OF INFILTRATION NOTED. PATIENT'S NEEDS ANTICIPATED AND MET. SAFETY AND COMFORT ENSURED. BED IN LOW AND LOCKED POSITION. CALL LIGHT IN REACH. WILL MONITOR.
[2016-08-06 20:00] VITALS: BP 123/67
[2016-08-06] MEDS ORDERED: SECONDARY IV SET 1 EA INFUS.SET MC ONE (21:32)
[2016-08-06] MEDS ORDERED: IV SET PRIMARY PUMP SET 1 EA INFUS.SET MC ONE (21:32)
[2016-08-06] MEDS ORDERED: IV NS 0.9% 250 ML IV ONE (21:32)
[2016-08-06] MEDS: MIRTAZAPINE 15 MG TABLET PO SCH (22:16)
[2016-08-07] MEDS ORDERED: SECONDARY IV SET 1 EA INFUS.SET MC ONE (00:49)
[2016-08-07] MEDS: VANCOMYCIN 0.75 GM in IV D5W 250 ML IV SCH ×2 (00:54→12:16)
--- NOTE | 2016-08-07 02:53 | NUR ---
RN NOTES PATIENT NOT IN ANY DISTRESS. AWAKE AT THIS TIME AND DENIES ANY PAIN AND DISCOMFORT. NEEDS ANTICIPATED AND MET. SAFETY AND COMFORT ENSURED. ASSISTED WITH ADLS NEEDED. CALL LIGHT IN REACH.
[2016-08-07 04:00] VITALS: BP_SYST 127; BP_SYST 98; BP_DIAS 54; BP_DIAS 75
[2016-08-07] MEDS: PIPERACILLIN /TAZOBACTAM 3.375 G in IV D5W 50 ML IV SCH ×2 (06:05→10:28)
--- NOTE | 2016-08-07 07:01 | NUR ---
RN CLOSING NOTES PATIENT WITH NO ACUTE CHANGE IN CONDITION OBSERVED OVERNIGHT. PATIENT STABLE, NO DISTRESS. ASSISTED WITH ADLS NEEDED. SAFETY AND COMFORT ENSURED. ALL DUE MEDS GIVEN ORDERED. AM LABS DRAWN. NEEDS ANTICIPATED AND MET. SAFETY AND COMFORT ENSURED. BED IN LOW AND LOCKED POSITION. CALL LIGHT IN REACH .WILL ENDORSE ACCORDINGLY FOR CONTINUITY OF CARE.
[2016-08-07 07:03] LABS: BASOPHILS % (AUTO) 0.3 % (0.0-2.0); EOSINOPHILS # (AUTO) 0.4 /CMM (0.0-0.7); EOSINOPHILS % (AUTO) 6.5 % (0.0-6.0); HEMATOCRIT 29 % (39-51); HEMOGLOBIN 9.7 g/dL (13.5-17.5); LYMPHOCYTES # (AUTO) 1.6 /CMM (0.8-4.8); LYMPHOCYTES % (AUTO) 23.5 % (20.0-44.0); MEAN CORPUSCULAR HEMOGLOBIN 28 PG (26.0-33.0); MEAN CORPUSCULAR HGB CONC 33 g/dl (31.0-36.0); MEAN CORPUSCULAR VOLUME 84 fL (80-96); MONOCYTES # (AUTO) 0.4 /CMM (0.1-1.30); MONOCYTES % (AUTO) 6.1 % (2.0-12.0); NEUTROPHILS # (AUTO) 4.2 /CMM (1.8-8.9); NEUTROPHILS % (AUTO) 63.6 % (43.0-81.0); PLATELET COUNT (AUTO) 240 /CMM (150-450); RDW COEFFICIENT OF VARIATION 18.8 (11.5-15.0); RED BLOOD CELL COUNT(AUTO) 3.49 MIL/uL (4.5-6.0); WHITE BLOOD COUNT (AUTO) 6.6 K/uL (4.3-11.0)
[2016-08-07 07:31] LABS: CALCIUM, SERUM 8.7 mg/dL (8.5-10.1); MAGNESIUM 1.9 mg/dL (1.8-2.4); PHOSPHORUS 3.4 mg/dL (2.5-4.9)
--- NOTE | 2016-08-07 07:47 | NUR ---
RN NOTES RECEIVED PATIENT IN BED, SLEEPING COMFORTABLY. PATIENT WITH NO DISTRESS / DISCOMFORT OBSERVED. ON 2LPM OF O2 VIA NC, RESPIRATION IS EVEN AND UNLABORED WITH NO DISTRESS. WITH L WRIST G20, FLUSHED AND PATENT, NO SIGNS OF INFILTRATION NOTED. PATIENT'S NEEDS ANTICIPATED AND MET. SAFETY AND COMFORT ENSURED. BED IN LOW AND LOCKED POSITION. CALL LIGHT IN REACH. WILL CONTINUE TO MONITOR.
[2016-08-07] MEDS: AMLODIPINE BESYLATE 5 MG TABLET PO SCH (08:28)
[2016-08-07] MEDS: DONEPEZIL 5 MG TABLET PO SCH (08:28)
[2016-08-07] MEDS: MEMANTINE HCL 5 MG TABLET PO SCH ×2 (08:29→16:11)
[2016-08-07] MEDS: Z GUARD REMEDY 2 OZ OINT TP SCH (08:32)
[2016-08-07 12:00] VITALS: BP 121/70
--- NOTE | 2016-08-07 16:50 | NUR ---
RN NOTES PATIENT IN BED, AWAKE ALERT AND VERBALLY RESPONSIVE. PATIENT WITH NO DISTRESS / DISCOMFORT OBSERVED. ON ROOM AIR SATURATION 95%, RESPIRATION IS EVEN AND UNLABORED WITH NO DISTRESS. L WRIST G20 AND ID BAND REMOVED WITH NO ASE NOTED PATIENT'S NEEDS ANTICIPATED AND MET. DISCHARGE INSTRUCTIONS REVIEWED WITH PT AND SON, IV AND ID BAND REMOVED WITH NO ASE NOTED, REPORT GIVEN TO SNF RN AND EMT FOR CONTINUITY OF CARE DISCHARGED IN STABLE CONDITION
== END 2016-08-07 16:50 | DRG 871 ==
LOC: ER 12:27 → TELE1 13:48 → MEDSG1 08-05 08:47
PROVIDERS: ADMIT Nurse Practitioner Acute Care; ATTEND Nurse Practitioner Acute Care
DX: A41.9 Sepsis, unspecified organism (principal); G92 Toxic encephalopathy; N17.0 Acute kidney failure with tubular necrosis; E87.1 Hypo-osmolality and hyponatremia; E87.2 Acidosis; D64.9 Anemia, unspecified; E11.9 Type 2 diabetes mellitus without complications; E78.5 Hyperlipidemia, unspecified; F03.90 Unspecified dementia, unspecified severity, without behavioral disturbance, psychotic disturbance, mood disturbance, and anxiety; I10 Essential (primary) hypertension; K21.9 Gastro-esophageal reflux disease without esophagitis; Z85.46 Personal history of malignant neoplasm of prostate; I25.10 Atherosclerotic heart disease of native coronary artery without angina pectoris; Z87.11 Personal history of peptic ulcer disease; Z87.891 Personal history of nicotine dependence; Z90.49 Acquired absence of other specified parts of digestive tract; E86.0 Dehydration; Z79.84 Long term (current) use of oral hypoglycemic drugs
CPT/HCPCS: 36415; 71010-TC; 80048-TC; 80053-TC; 80076-TC; 80202-TC; 81000-TC; 83605-TC; 83735-TC; 83880; 84100-TC; 84484-TC; 85025-TC; 85385-TC; 85730-TC; 87040-TC; 87081-TC; 87086-TC; 94799-TC; A4606; J2543; J3370; J3475; J7030; J7050; J7060; Z7610

== ENCOUNTER 2016-08-11 11:22 | Inpatient (IN) | payer MEDICARE, OTHER ==
[~2016-08-11] VITALS: Ht 167.6 cm; Wt 73.5 kg
[~2016-08-11 11:22] MED LIST changes: -DONE23TA3 PO; +DONE5TAB34 PO; +LEVO500T15 PO
--- NOTE | 2016-08-11 11:35 | NUR ---
PT BIBA FOR MIDSTERNAL CP DURING INHALATION, ASA 162 GIVEN IN THE FIELD. SON AT BS. NOTED TACHY, OTHER VS STABLE. SAFETY AND COMFORT MEASURES PROVIDED. IV ACCESS ROD TAPE OPERATOR. WILL MONITOR.
[2016-08-11] MEDS ORDERED: IV NS 0.9% 1,000 ML ONE (11:47)
[2016-08-11] MEDS ORDERED: MORPHINE SULFATE INJ 4 MG/ML DISP.SYRIN ONE (11:47)
[2016-08-11] MEDS ORDERED: IV SET PRIMARY PUMP SET 1 EA INFUS.SET MC ONE (11:47)
[2016-08-11] MEDS ORDERED: ONDANSETRON HCL/PF 4 MG/2 ML VIAL ONE (11:47)
[2016-08-11] MEDS ORDERED: MORPHINE SULFATE INJ 2 MG/ML DISP.SYRIN IV ONE (12:00)
[2016-08-11] MEDS ORDERED: ONDANSETRON HCL/PF 4 MG/2 ML VIAL IV ONE (12:00)
[2016-08-11] MEDS ORDERED: IV NS 0.9% 1,000 ML BAG IV ONE (12:00)
[2016-08-11 12:05] LABS: BASOPHILS % (AUTO) 0.1 % (0.0-2.0); EOSINOPHILS # (AUTO) 0.1 /CMM (0.0-0.7); EOSINOPHILS % (AUTO) 0.7 % (0.0-6.0); HEMATOCRIT 33 % (39-51); HEMOGLOBIN 10.8 g/dL (13.5-17.5); LYMPHOCYTES # (AUTO) 1.1 /CMM (0.8-4.8); LYMPHOCYTES % (AUTO) 7.1 % (20.0-44.0); MEAN CORPUSCULAR HEMOGLOBIN 28 PG (26.0-33.0); MEAN CORPUSCULAR HGB CONC 33 g/dl (31.0-36.0); MEAN CORPUSCULAR VOLUME 85 fL (80-96); MONOCYTES # (AUTO) 0.3 /CMM (0.1-1.30); NEUTROPHILS # (AUTO) 14.3 /CMM (1.8-8.9); NEUTROPHILS % (AUTO) 90.1 % (43.0-81.0); PLATELET COUNT (AUTO) 230 /CMM (150-450); RED BLOOD CELL COUNT(AUTO) 3.89 MIL/uL (4.5-6.0); WHITE BLOOD COUNT (AUTO) 15.8 K/uL (4.3-11.0)
[2016-08-11 12:15] LABS: CALCIUM, SERUM 9.6 mg/dL (8.5-10.1); CARBON DIOXIDE 26 mmol/L (21-32); CHLORIDE 101 mmol/L (98-107); GLUCOSE 132 mg/dL (74-106); POTASSIUM 4.4 mmol/L (3.5-5.1); SODIUM SERUM 134 mmol/L (136-145); UREA NITROGEN, BLOOD 15 mg/dL (7-18)
--- NOTE | 2016-08-11 12:15 | NUR ---
PT MEDICATED ORDERED.
[2016-08-11 12:18] LABS: INR 1.01 (0.87-1.13); PROTHROMBIN TIME 10.5 SECS (9.5-12.7)
[2016-08-11 12:24] LABS: TROPONIN I < 0.017 ng/mL (0.00-0.056)
--- NOTE | 2016-08-11 14:00 | NUR ---
IV ACCESS INFILTRATED.
--- NOTE | 2016-08-11 14:20 | NUR ---
UNABLE TO START IV ACCESS. CHARGE NURSE MADE AWARE.
--- NOTE | 2016-08-11 15:00 | NUR ---
Patient is resting comfortably in bed with eyes closed. Easily aroused. VSS
--- NOTE | 2016-08-11 15:45 | NUR ---
MIDLINE NURSE AT BS.
[2016-08-11] MEDS ORDERED: IOHEXOL-350 100 ML VIAL IV ONE (16:44)
[2016-08-11] MEDS ORDERED: CT SWABBABLE VALVE TRANS SET 1 EA INFUS.SET MC ONE (16:44)
[2016-08-11] MEDS ORDERED: IV NS 0.9% 250 ML IV ONE (16:44)
--- NOTE | 2016-08-11 16:45 | NUR ---
CALLED RADIOLOGY THAT PT IS READY FOR CTA.
--- NOTE | 2016-08-11 16:49 | NUR ---
PT TAKEN TO CT.
--- NOTE | 2016-08-11 18:07 | NUR ---
Pt's son's name [facility]
--- NOTE | 2016-08-11 19:22 | NUR ---
PER DR. SHANE PT IS OKAY TO EAT. PT FULLY AWAKE, ALERT AND ABLE TO TOLERATE PO INTAKE. VSS.
--- NOTE | 2016-08-11 19:29 | NUR ---
DR SHANE ON THE PHONE WITH DR DAMICO
--- NOTE | 2016-08-11 19:37 | NUR ---
CALLED NURSING SUP FOR TELE BED
--- NOTE | 2016-08-11 19:57 | NUR ---
er md at bedside talking to pt and pt son regarding pt admission.
--- NOTE | 2016-08-11 20:32 | NUR ---
report called to television station manager. will transport pt via acls protocol.
[2016-08-11 21:00] VITALS: BP 100/57
[2016-08-11] MEDS ORDERED: Z GUARD REMEDY 2 OZ OINT TP PRN (21:00)
[2016-08-11] MEDS ORDERED: MAG HYDROX/AL HYDROX/SIMETH 30 ML UDC PO PRN (21:00)
[2016-08-11] MEDS ORDERED: HYDROCODONE/APAP 5/325MG 1 EACH TABLET PO PRN (21:00)
[2016-08-11] MEDS ORDERED: MORPHINE SULFATE INJ 2 MG/ML DISP.SYRIN IV PRN (21:00)
[2016-08-11] MEDS ORDERED: MAGNESIUM HYDROXIDE 30 ML UDC PO PRN (21:00)
[2016-08-11] MEDS ORDERED: ONDANSETRON HCL/PF 4 MG/2 ML VIAL IVP PRN (21:00)
[2016-08-11] MEDS ORDERED: ZOLPIDEM TARTRATE 5 MG TABLET PO PRN (21:00)
[2016-08-11] MEDS: ENOXAPARIN SODIUM 40 MG/0.4 ML DISP.SYRIN SQ SCH (21:00)
[2016-08-11] MEDS ORDERED: ACETAMINOPHEN 325 MG TABLET PO PRN (21:00)
--- NOTE | 2016-08-11 21:45 | NUR ---
TELE/RN NOTES RECEIVED NEW ADMITTED PATIENT ARRIVED FROM ON A GURNEY ACCOMPANIED BY SON. PATIENT SLEEPING W/ NO S/S OF SOB OR DISTRESS.86 YO MALE WITH CHEST PAIN/DISCOMFORT DURING INSPIRATION. ALERT, ORIENTED 2X. FARSI SPEAKING AND FORGETFUL. ON TELE WITH SR 80'S R AC MIDLINE PATENCY CHECK WILL CONTINUE TO MONITOR AND PROVIDE CARE.
[2016-08-11 21:46] VITALS: BP 100/57
[2016-08-11] MEDS ORDERED: ENOXAPARIN SODIUM 40 MG/0.4 ML DISP.SYRIN SQ ONE (22:42)
[2016-08-12] VITALS: BP 118/58
[2016-08-12 04:00] VITALS: BP 102/51
--- NOTE | 2016-08-12 06:07 | NUR ---
TELE/RN CLOSING NOTES PATIENT ABLE TO SLEEP DURING THE NIGHT W/ NO S/S OF SOB OR DISTRESS W/ OXYGEN 2L VIA NC.REPOSTION FOR COMFORT/PREVENTIVE MEASURES. ATTEND TO NEEDS. MID LINE PATENCY CHECK. AWAITING RESULT OF AM LABS. WILL CONTINUE TO MONITOR AND ENDORSE TO AM RN CONTINUITY OF CARE.
[2016-08-12] MEDS ORDERED: IV SET PRIMARY PUMP SET 1 EA INFUS.SET MC ONE (06:28)
[2016-08-12] MEDS ORDERED: IV NS 0.9% 1,000 ML ONE (06:28)
[2016-08-12 06:43] LABS: BASOPHILS % (AUTO) 0.3 % (0.0-2.0); EOSINOPHILS # (AUTO) 0.2 /CMM (0.0-0.7); EOSINOPHILS % (AUTO) 2.3 % (0.0-6.0); HEMATOCRIT 28 % (39-51); HEMOGLOBIN 9.3 g/dL (13.5-17.5); LYMPHOCYTES # (AUTO) 1.9 /CMM (0.8-4.8); LYMPHOCYTES % (AUTO) 21.8 % (20.0-44.0); MEAN CORPUSCULAR HEMOGLOBIN 28 PG (26.0-33.0); MEAN CORPUSCULAR HGB CONC 33 g/dl (31.0-36.0); MEAN CORPUSCULAR VOLUME 84 fL (80-96); MONOCYTES # (AUTO) 0.5 /CMM (0.1-1.30); MONOCYTES % (AUTO) 5.8 % (2.0-12.0); NEUTROPHILS # (AUTO) 6.1 /CMM (1.8-8.9); NEUTROPHILS % (AUTO) 69.8 % (43.0-81.0); PLATELET COUNT (AUTO) 214 /CMM (150-450); RDW COEFFICIENT OF VARIATION 19.4 (11.5-15.0); RED BLOOD CELL COUNT(AUTO) 3.36 MIL/uL (4.5-6.0); WHITE BLOOD COUNT (AUTO) 8.7 K/uL (4.3-11.0)
--- NOTE | 2016-08-12 07:10 | NUR ---
SPORTS LEADERSHIP INSTRUCTOR NOTES RECEIVED PATIENT IN BED, AWAKE. A/O X2. ON TELE MONITOR SINUS RHYTHM HR 85. APPEARS COMFORTABLE IN BED, NO C/O PAIN OR ANY DISCOMFORT. PATIENT IS ON NPO STATUS ORDERED. IV MID LINE IN ANDREZ PATENT AND INTACT, FLUSHES WELL. CALL LIGHT WITHIN REACH. WILL CONT TO MONITOR.
[2016-08-12 07:29] LABS: CARBON DIOXIDE 26 mmol/L (21-32); CHLORIDE 103 mmol/L (98-107); CREATININE 0.9 mg/dL (0.6-1.3); GLUCOSE 108 mg/dL (74-106); MAGNESIUM 1.7 mg/dL (1.8-2.4); PHOSPHORUS 3.2 mg/dL (2.5-4.9); POTASSIUM 4.1 mmol/L (3.5-5.1); SODIUM SERUM 137 mmol/L (136-145); UREA NITROGEN, BLOOD 11 mg/dL (7-18)
[2016-08-12 08:00] VITALS: BP 107/56
[2016-08-12 08:14] LABS: TROPONIN I < 0.017 ng/mL (0.00-0.056)
--- NOTE | 2016-08-12 08:55 | NUR ---
PATIENT IS SEEN BY DR. VERA TODAY, PER MD PATIENT HAVE DIET AND EAT. PLACE PATIENT ON PREVIOUS CARDIAC DIET.
[2016-08-12] MEDS ORDERED: AMLODIPINE BESYLATE 5 MG TABLET PO SCH (09:00)
[2016-08-12] MEDS: METFORMIN 500 MG TABLET PO SCH ×2 (10:00→16:46)
[2016-08-12] MEDS: DONEPEZIL 5 MG TABLET PO SCH (10:01)
[2016-08-12] MEDS ORDERED: SECONDARY IV SET 1 EA INFUS.SET MC ONE (10:01)
[2016-08-12] MEDS: ASPIRIN 81 MG TAB.CHEW PO SCH (10:01)
[2016-08-12] MEDS: LOSARTAN POTASSIUM 50 MG TABLET PO SCH ×2 (10:01→21:00)
[2016-08-12] MEDS: MEMANTINE HCL 5 MG TABLET PO SCH ×2 (10:07→16:45)
[2016-08-12] MEDS: CELECOXIB 100 MG CAPSULE PO SCH ×2 (10:07→16:46)
[2016-08-12] MEDS: PANTOPRAZOLE 40 MG TABLET.DR PO SCH (10:12)
[2016-08-12] MEDS: Magnesium 1GM/D5W 100ML PREMIX 100 ML IV SCH ×2 (10:18→11:33)
--- NOTE | 2016-08-12 11:23 | NUR ---
WOUND CARE CONSULT: PATIENT SEEN AND SKIN ASSESSMENT DONE. PATIENT ALERT, NEEDS ASSIST AND PROMPTING IN TURNING AND REPOSITIONING, URGE INCONTINENCE, PRIYANKA 13, BAKARI ISOFLEX ALEXANDRE BED ORDERED BY NURSING STAFF AND WILL BE PLACED WHEN AVAILABLE IN THE UNIT. SEE TODAY'S SKIN ASSESSMENT IN PCS ALONG WITH RECOMMENDATIONS. RECOMMEND MOISTURE PROTECTION WITH Z GUARD ORDERED, TURN AND REPOSITION EVERY 2 HRS PATIENT CONDITION PERMITS, OFFLOAD BOTH HEELS. ALL DISCUSSED WITH NURSING STAFF. MD IN AGREEMENT WITH PLAN OF CARE. Addendum: 08/12/16 at 1126 by ONELIA MATIAS WNDNU Amended: Links added.
[2016-08-12 13:22] LABS: THYROID STIMULATING HORMONE 1.194 uIU/mL (0.358-3.74)
[2016-08-12 13:23] LABS: CHOLESTEROL 156 mg/dL (<200); HDL CHOLESTEROL 22 mg/dL (40-60); LDL 92 mg/dL (0-99); TRIGLYCERIDES 189 mg/dL (30-150)
[2016-08-12] MEDS: HYDROGEL DRESSING 90 GM TUBE TP SCH (14:02)
[2016-08-12] MEDS: ALBUTEROL FS 2.5 MG/3 ML VIAL.NEB NEB SCH (15:59)
[2016-08-12 16:00] VITALS: BP 107/59
[2016-08-12] MEDS ORDERED: IV NS 0.9% 250 ML IV ONE (16:57)
--- NOTE | 2016-08-12 17:01 | NUR ---
SPOKE TO MIRA-SON, REVIEWED VACCINATION STATUS. PER SON PATIENT RECEIVED FLU VACCINE LAST 2015 AND PNA VACCINE LESS THAN 5 YEARS AGO BUT FORGOT THE DATES. VACCINATION STATUS UPDATED.
--- NOTE | 2016-08-12 18:41 | NUR ---
MS RN CLOSING NOTES PATIENT IN BED, NOT IN DISTRESS. BREATHING EVEN AND NON LABORED, TOLERATING ROOM AIR, NO SOB NOTED. IV MAGNESIUM SUPPLEMENTED. MADE COMFORTABLE IN BED. CALL LIGHT WITHIN REACH. PT TO EVAL PATIENT. WILL ENDORSE TO VP AD SALES WEST RN FOR CONTINUITY OF CARE.
[2016-08-12 20:00] VITALS: BP 101/64
[2016-08-12] MEDS: ENOXAPARIN SODIUM 40 MG/0.4 ML DISP.SYRIN SQ SCH (21:12)
[2016-08-13] MEDS: ALBUTEROL FS 2.5 MG/3 ML VIAL.NEB NEB SCH ×4 (00:11→23:25)
[2016-08-13] MEDS: PANTOPRAZOLE 40 MG TABLET.DR PO SCH (06:22)
[2016-08-13 06:53] LABS: BASOPHILS % (AUTO) 0.4 % (0.0-2.0); EOSINOPHILS # (AUTO) 0.2 /CMM (0.0-0.7); EOSINOPHILS % (AUTO) 3.6 % (0.0-6.0); HEMATOCRIT 28 % (39-51); HEMOGLOBIN 9.1 g/dL (13.5-17.5); LYMPHOCYTES # (AUTO) 1.3 /CMM (0.8-4.8); LYMPHOCYTES % (AUTO) 21.5 % (20.0-44.0); MEAN CORPUSCULAR HEMOGLOBIN 28 PG (26.0-33.0); MEAN CORPUSCULAR HGB CONC 33 g/dl (31.0-36.0); MEAN CORPUSCULAR VOLUME 85 fL (80-96); MONOCYTES # (AUTO) 0.3 /CMM (0.1-1.30); MONOCYTES % (AUTO) 5.5 % (2.0-12.0); PLATELET COUNT (AUTO) 189 /CMM (150-450); RDW COEFFICIENT OF VARIATION 18.8 (11.5-15.0); RED BLOOD CELL COUNT(AUTO) 3.26 MIL/uL (4.5-6.0); WHITE BLOOD COUNT (AUTO) 5.9 K/uL (4.3-11.0)
--- NOTE | 2016-08-13 07:00 | NUR ---
MS RN INITIAL NOTES REPORT RECEIVED AT THE BEDSIDE. PATIENT IS SLEEPING. NO SOB OR DISTRESS NOTED AT THIS TIME. PATIENT DOES NOT APPEAR TO BE IN PAIN, NO FACIAL GRIMACE NOTED. BED IN A LOW POSITION, CALL LIGHT WITHIN PATIENT REACH. WILL CONTINUE TO MONITOR.
[2016-08-13 07:06] LABS: TROPONIN I < 0.017 ng/mL (0.00-0.056)
[2016-08-13 07:09] LABS: ALANINE AMINOTRANSFERASE 15 U/L (12-78); ALBUMIN 2.5 g/dL (3.4-5.0); ALKALINE PHOSPHATASE 63 U/L (46-116); ASPARTATE AMINOTRANSFERASE 18 U/L (15-37); BILIRUBIN,TOTAL 0.2 mg/dL (0.2-1.0); CALCIUM, SERUM 8.9 mg/dL (8.5-10.1); CARBON DIOXIDE 28 mmol/L (21-32); CHLORIDE 102 mmol/L (98-107); CREATININE 0.9 mg/dL (0.6-1.3); GLUCOSE 115 mg/dL (74-106); MAGNESIUM 1.9 mg/dL (1.8-2.4); PHOSPHORUS 3.3 mg/dL (2.5-4.9); POTASSIUM 3.8 mmol/L (3.5-5.1); SODIUM SERUM 137 mmol/L (136-145); TOTAL PROTEIN, SERUM 7.1 g/dL (6.4-8.2); UREA NITROGEN, BLOOD 11 mg/dL (7-18)
[2016-08-13 08:00] VITALS: BP 118/68
[2016-08-13] MEDS: ASPIRIN 81 MG TAB.CHEW PO SCH (08:33)
[2016-08-13] MEDS: LOSARTAN POTASSIUM 50 MG TABLET PO SCH ×2 (08:33→21:07)
[2016-08-13] MEDS: METFORMIN 500 MG TABLET PO SCH ×2 (08:33→16:27)
[2016-08-13] MEDS: MEMANTINE HCL 5 MG TABLET PO SCH ×2 (08:33→16:27)
[2016-08-13] MEDS: CELECOXIB 100 MG CAPSULE PO SCH (08:33)
[2016-08-13] MEDS: DONEPEZIL 5 MG TABLET PO SCH (08:33)
[2016-08-13] MEDS: HYDROGEL DRESSING 90 GM TUBE TP SCH (08:33)
[2016-08-13] MEDS ORDERED: IV SET PRIMARY PUMP SET 1 EA INFUS.SET MC ONE (11:06)
[2016-08-13] MEDS ORDERED: IV NS 0.9% 250 ML IV ONE (11:06)
[2016-08-13] MEDS ORDERED: SECONDARY IV SET 1 EA INFUS.SET MC ONE (11:06)
[2016-08-13] MEDS: AZITHROMYCIN 500 MG in IV D5W 250 ML IV SCH (11:10)
[2016-08-13] MEDS: SOD FERRIC GLUC 125 MG in IV NS 0.9% 100 ML IV SCH (14:09)
[2016-08-13 16:00] VITALS: BP 122/99
--- NOTE | 2016-08-13 18:43 | NUR ---
MS RN CLOSING NOTES NO SIGNIFICANT CHANGES IN PATIENT CONDITION THROUGHOUT THE SHIFT. NO SOB OR DISTRESS NOTED AT THIS TIME. PATIENT DENIES PAIN. BED IN A LOW POSITION, CALL LIGHT WITHIN PATIENT REACH. WILL ENDORSE FOR TAQUERIA.
--- NOTE | 2016-08-13 19:30 | NUR ---
RN OPENING NOTES RECEIVED REPORT FROM CHIP BERRY. FOUND Pt AWAKE, RESTING IN BED. NO S/S OF ACUTE DISTRESS OR SOB NOTED. Pt IS A/OX3, FORGETFUL AT TIMES, FARSI SPEAKING. NO C/O PAIN AT THIS TIME. IV ACCESS ON ANDREZ MIDLINE. SAFETY MEASURES IN PLACE. BED LOW, LOCKED, HOB ELEVATED, SIDE RAILS UP, CALL LIGHT AND BEDSIDE TABLE WITHIN REACH. WILL CONTINUE TO MONITOR Pt THROUGHOUT THE NIGHT FOR SAFETY.
[2016-08-13 20:31] VITALS: BP 133/61
[2016-08-13] MEDS: ENOXAPARIN SODIUM 40 MG/0.4 ML DISP.SYRIN SQ SCH (21:07)
[2016-08-13 22:00] VITALS: BP 133/71
--- NOTE | 2016-08-14 06:45 | NUR ---
RN CLOSING NOTES NO SIGNIFICANT CHANGES DURING THE NIGHT. NO S/S OF ACUTE DISTRESS OR SOB NOTED. SAFETY MEASURES IN PLACE. ALL NEEDS MET AND ATTENDED TO. WILL ENDORSE TO DAYSHIFT RN FOR Pt's [place].
--- NOTE | 2016-08-14 07:00 | NUR ---
MS RN INITIAL NOTES REPORT RECEIVED AT THE BEDSIDE. PATIENT IS SLEEPING. NOT SOB OR DISTRESS NOTED AT THIS TIME. PATIENT DOES NOT APPEAR TO BE IN PAIN, NO FACIAL GRIMACE NOTED. BED IN A LOW POSITION, CALL LIGHT WITHIN PATIENT REACH. WILL CONTINUE TO MONITOR.
[2016-08-14 08:00] VITALS: BP 121/74
[2016-08-14] MEDS: DONEPEZIL 5 MG TABLET PO SCH (08:22)
[2016-08-14] MEDS: METFORMIN 500 MG TABLET PO SCH (08:22)
[2016-08-14] MEDS: LOSARTAN POTASSIUM 50 MG TABLET PO SCH (08:23)
[2016-08-14] MEDS: MEMANTINE HCL 5 MG TABLET PO SCH (08:23)
[2016-08-14] MEDS: ALBUTEROL FS 2.5 MG/3 ML VIAL.NEB NEB SCH ×2 (08:23→15:23)
[2016-08-14 08:24] LABS: BASOPHILS % (AUTO) 0.4 % (0.0-2.0); EOSINOPHILS # (AUTO) 0.3 /CMM (0.0-0.7); HEMATOCRIT 30 % (39-51); HEMOGLOBIN 9.8 g/dL (13.5-17.5); LYMPHOCYTES # (AUTO) 1.4 /CMM (0.8-4.8); LYMPHOCYTES % (AUTO) 20.2 % (20.0-44.0); MEAN CORPUSCULAR HEMOGLOBIN 28 PG (26.0-33.0); MEAN CORPUSCULAR HGB CONC 33 g/dl (31.0-36.0); MEAN CORPUSCULAR VOLUME 84 fL (80-96); MONOCYTES # (AUTO) 0.3 /CMM (0.1-1.30); MONOCYTES % (AUTO) 4.6 % (2.0-12.0); NEUTROPHILS # (AUTO) 4.8 /CMM (1.8-8.9); NEUTROPHILS % (AUTO) 69.8 % (43.0-81.0); PLATELET COUNT (AUTO) 237 /CMM (150-450); RDW COEFFICIENT OF VARIATION 18.5 (11.5-15.0); RED BLOOD CELL COUNT(AUTO) 3.53 MIL/uL (4.5-6.0); WHITE BLOOD COUNT (AUTO) 6.9 K/uL (4.3-11.0)
[2016-08-14] MEDS: HYDROGEL DRESSING 90 GM TUBE TP SCH (08:24)
[2016-08-14 08:42] LABS: CALCIUM, SERUM 9.1 mg/dL (8.5-10.1); CREATININE 0.8 mg/dL (0.6-1.3); MAGNESIUM 1.8 mg/dL (1.8-2.4); POTASSIUM 4.1 mmol/L (3.5-5.1)
[2016-08-14] MEDS ORDERED: PANTOPRAZOLE 40 MG/PACK PACK PO SCH (09:00)
[2016-08-14] MEDS: AZITHROMYCIN 500 MG in IV D5W 250 ML IV SCH (10:24)
[2016-08-14] MEDS: SOD FERRIC GLUC 125 MG in IV NS 0.9% 100 ML IV SCH (13:18)
[2016-08-14 16:00] VITALS: BP 122/74
--- NOTE | 2016-08-14 16:19 | NUR ---
MS CONSULTING SALES EXECUTIVE NOTE DISCHARGE INSTRUCTIONS GIVEN TO THE PATIENT'S SON AND ABLE TO UNDERSTAND. NO SOB OR DISTRESS NOTED AT THIS TIME. PATIENT DENIES PAIN. VITALS CHECKED AND RECORDED. FLU AND PNEUMONIA VACCINES NOT GIVEN PATIENT HAS ALREADY RECEIVED BOTH. PICTURES OF SKIN TAKEN AND PLACED IN THE CHART. ALL BELONGINGS ACCOUNTED FOR. PATIENT LEFT IN STABLE CONDITION, VIA GURNEY, ACCOMPANIED BY TWO HYDRAULIC MINER BLASTING. TO BE TRANSFERRED TO [facility]. REPORT CALLED TO CHIP SCOTT.
== END 2016-08-14 16:20 | DRG 193 ==
LOC: ER 11:23 → TELE 20:04 → MED 08-12 08:57
PROVIDERS: ADMIT Internal Medicine; ATTEND Internal Medicine
PROC: 05H533Z Insertion of Infusion Device into Right Subclavian Vein, Percutaneous Approach (ICD-10-PCS; principal; 2016-08-11)
DX: J15.9 Unspecified bacterial pneumonia (principal); G92 Toxic encephalopathy; J98.11 Atelectasis; E11.9 Type 2 diabetes mellitus without complications; E78.5 Hyperlipidemia, unspecified; I10 Essential (primary) hypertension; I25.10 Atherosclerotic heart disease of native coronary artery without angina pectoris; K21.9 Gastro-esophageal reflux disease without esophagitis; D64.9 Anemia, unspecified; E83.42 Hypomagnesemia; F03.90 Unspecified dementia, unspecified severity, without behavioral disturbance, psychotic disturbance, mood disturbance, and anxiety; R07.81 Pleurodynia; Z87.11 Personal history of peptic ulcer disease; Z87.891 Personal history of nicotine dependence; D50.9 Iron deficiency anemia, unspecified; J20.9 Acute bronchitis, unspecified; N40.0 Benign prostatic hyperplasia without lower urinary tract symptoms; Z79.84 Long term (current) use of oral hypoglycemic drugs; Z90.49 Acquired absence of other specified parts of digestive tract
CPT/HCPCS: 36415; 36569; 71010-TC; 80048-TC; 80053-TC; 80061-TC; 82272-TC; 82306; 82728-TC; 82962-TC; 83540-TC; 83735-TC; 84100-TC; 84439-TC; 84443-TC; 84484-TC; 85025-TC; 85730-TC; 87040-TC; 87081-TC; 94799-TC; 97001-TC; 97116-TC; 97530-TC; A4606; A6248; J0456; J1650; J2270; J2405; J2916; J3475; J7030; J7050; J7060; Q9967; Z7610

== ENCOUNTER 2018-02-11 16:24 | Inpatient (IN) | payer MEDICARE, OTHER ==
[~2018-02-11] VITALS: Ht 167.6 cm; Wt 77.1 kg
[~2018-02-11 16:24] MED LIST changes: -AMLO5TAB2 PO; +AMLO5TAB7 PO; -LEVO500T15 PO; +LEVO500T75 PO; +METF-440 PO; -METF500T4 PO
[2018-02-11] MEDS ORDERED: IV NS 0.9% 1,000 ML BAG IV ONE (16:30)
[2018-02-11] MEDS ORDERED: ACETAMINOPHEN ES 500 MG TABLET PO ONE (16:30)
[2018-02-11] MEDS ORDERED: MEROPENEM 1 G in IV NS 0.9% 100 ML IV ONE (16:30)
[2018-02-11] MEDS ORDERED: ACETAMINOPHEN ES 500 MG TABLET ONE (16:42)
[2018-02-11 17:00] LABS: EOSINOPHILS % (AUTO) 0.8 % (0.0-6.0); HEMATOCRIT 38 % (39-51); HEMOGLOBIN 12.2 g/dL (13.5-17.5); LYMPHOCYTES % (AUTO) 5.1 % (20.0-44.0); MEAN CORPUSCULAR HGB CONC 32 g/dl (31.0-36.0); MEAN CORPUSCULAR VOLUME 96 fL (80-96); MONOCYTES # (AUTO) 0.6 /CMM (0.1-1.30); MONOCYTES % (AUTO) 2.9 % (2.0-12.0); NEUTROPHILS # (AUTO) 18.4 /CMM (1.8-8.9); NEUTROPHILS % (AUTO) 91.2 % (43.0-81.0); PLATELET COUNT (AUTO) 208 /CMM (150-450); RDW COEFFICIENT OF VARIATION 18.5 (11.5-15.0); RED BLOOD CELL COUNT(AUTO) 3.98 MIL/uL (4.5-6.0); WHITE BLOOD COUNT (AUTO) 20.2 K/uL (4.3-11.0)
[2018-02-11 17:11] LABS: APPEARANCE,URINE Clear (CLEAR); BILIRUBIN,URINE Negative (NEGATIVE); BLOOD, URINE Trace-lysed Ery/uL (NEGATIVE); COLOR,URINE Yellow (YELLOW); KETONES,URINE Negative (NEGATIVE); LEUKOCYTE ESTERASE ,URINE Negative (NEGATIVE); NITRITE, URINE Negative (NEGATIVE); PH,URINE 6.5 (5.0-8.0); PROTEIN,URINE Negative (NEGATIVE); UGLUCOSE Negative (NEGATIVE); UROBILINOGEN,URINE 0.2 EU/dL (0.2)
[2018-02-11 17:13] LABS: CALCIUM, SERUM 9.1 mg/dL (8.5-10.1); CARBON DIOXIDE 23 mmol/L (21-32); CHLORIDE 96 mmol/L (98-107); CREATININE 1.2 mg/dL (0.6-1.3); GLUCOSE 164 mg/dL (74-106); POTASSIUM 4.6 mmol/L (3.5-5.1); SODIUM SERUM 129 mmol/L (136-145); UREA NITROGEN, BLOOD 16 mg/dL (7-18)
[2018-02-11 17:15] LABS: BACTERIA,URINE Few /HPF (None Seen); RBC,URINE 0-2 /HPF (0-2); SQUAMOUS EPITHELIAL CELL,UR Few /HPF (None Seen); WBC,URINE 0-2 /HPF (0-3)
[2018-02-11 17:16] LABS: INR 0.93 (0.87-1.13)
[2018-02-11 17:19] LABS: ALANINE AMINOTRANSFERASE 14 U/L (12-78); ALBUMIN 3.4 g/dL (3.4-5.0); ALKALINE PHOSPHATASE 65 U/L (46-116); ASPARTATE AMINOTRANSFERASE 19 U/L (15-37); BILIRUBIN,DIRECT 0.1 mg/dL (0.0-0.2); BILIRUBIN,TOTAL 0.4 mg/dL (0.2-1.0); TOTAL PROTEIN, SERUM 8.2 g/dL (6.4-8.2)
[2018-02-11 17:20] LABS: TROPONIN I < 0.017 ng/mL (0.00-0.056)
[2018-02-11 17:28] LABS: BAND % (MANUAL) 4 % (0.0-5.0); EOSINOPHILS % (MANUAL) 2 % (0-4); LYMPHOCYTES % (MANUAL) 8 % (16-48); MONOCYTES % (MANUAL) 2 % (0-11.0); NEUTROPHILS % (MANUAL) 84 (42-76)
--- NOTE | 2018-02-11 17:30 | NUR ---
PANEL ON-CALL PAGED
[2018-02-11] MEDS ORDERED: ENZALUTAMIDE PO ×2 (17:40)
--- NOTE | 2018-02-11 18:13 | NUR ---
PT IS ASSIGNED TO [facility]#: [id number], DX: SEPSIS, AND ACCEPTING: JINNY ROMANO NP
--- NOTE | 2018-02-11 18:28 | NUR ---
SEE DOCUMENTATION FOR CURRENT VITALS AND MED ADMINISTRATION. FAMILY MADE AWARE.
--- NOTE | 2018-02-11 18:28 | NUR ---
Pt going to 309A Hand off/NKE to [facility] Transported upstairs with RN and transport in stable condition
[2018-02-11 18:40] VITALS: BP 98/60
--- NOTE | 2018-02-11 18:40 | NUR ---
RECEIVED PT. FROM ER,HOOKED UP TO [id number] RATE OF 110.VS TAKEN-SEE GRAPHIC.FAMILY AT BEDSIDE.
--- NOTE | 2018-02-11 19:10 | NUR ---
ETCHER PRINTED CIRCUIT BOARDS NOTES RECEIVED PT IN BED, RESTING COMFORTABLY AT THIS TIME, AROUSES EASILY, A/0 X 2, VERBALLY RESPONSIVE. DAUGHTER AND SON IN LAW AT BEDSIDE. NO DISTRESS, NOR SOB NOTED. ON 02 @ 2LPM VIA NC , 02 SATURATION IS 98 % AT THIS TIME. IV SITE ON RFA INTACT AND PATENT, NO S/S OF INFILTRATION NOTED. SECURED PROPERLY. FC IS INTACT AND PATENT, DRAINING WELL WITH CLEAR YELLOW URINE. FULL BODY CHECK DONE. ALL NEEDS ATTENDED AND MET. KEPT COMFORTABLE. NO C/O PAIN OR DISCOMFORT AT THIS TIME. CALL LIGHT WITHIN REACH. SAFETY PRECAUTIONS OBSERVED. WILL CONT TO MONITOR.
[2018-02-11 20:00] VITALS: BP 102/55
[2018-02-11] MEDS ORDERED: ACETAMINOPHEN 325 MG TABLET PO PRN (20:00)
[2018-02-11] MEDS ORDERED: MAGNESIUM HYDROXIDE 30 ML UDC PO PRN (20:00)
[2018-02-11] MEDS ORDERED: ONDANSETRON HCL/PF 4 MG/2 ML VIAL IVP PRN (20:00)
[2018-02-11] MEDS ORDERED: ZOLPIDEM TARTRATE 5 MG TABLET PO PRN (20:00)
[2018-02-11] MEDS ORDERED: Z GUARD REMEDY 2 OZ OINT TP PRN (20:00)
--- NOTE | 2018-02-11 20:45 | NUR ---
PT WITH NO DIET ORDER, PT AND FAMILY REQUESTING FOR EGG SANDWICH , INFORMED JINNY SALES PRODUCT SPECIALIST PER JINNY OK TO GIVE SANDWICH , AND RECEIVED DIET ORDER , NOTED AND CARRIED OUT.
--- NOTE | 2018-02-11 20:51 | NUR ---
JINNY ROMANO INFORMED REGARDING LACTIC ACID RESULT : 3.2.
[2018-02-11] MEDS ORDERED: ENOXAPARIN SODIUM 40 MG/0.4 ML DISP.SYRIN SQ SCH (21:00)
[2018-02-11] MEDS: CEFTRIAXONE 1 G in IV D5W 50 ML IV SCH (21:16)
[2018-02-11] MEDS: IV NS 0.9% 1,000 ML IV PRN (21:17)
[2018-02-12] VITALS: BP 99/60
[2018-02-12] MEDS: HYDROCODONE/APAP 5/325MG 1 EACH TABLET PO PRN ×2 (01:58→20:24)
[2018-02-12 04:00] VITALS: BP 104/60
--- NOTE | 2018-02-12 06:27 | NUR ---
PT NOTED WITH BLOOD CLOTS COMING FROM PENIS ( 5 INCHES LONG ) , PT NOTED WITH EPISODES HOLDING/ PLAYING WITH THE CLAIRE CATHETER, EVEN THOUGH PT VERBALIZED UNDERSTANDING ON TEACHING NOT TO PULL OUT FC, HOW EVER,FC DRAINING WELL WITH CLEAR YELLOW URINE. PLACED A CALL TO DR. LOREDO AND RELAYED REGARDING SITUATION , MD WITH ORDER FOR BILATERAL HAND MITTENS AND TO RELAY IT ALSO TO THE DAY MD. CHARGE NURSE AWARE, WILL ENDORSE TO NEXT SHIFT ACCORDINGLY.
--- NOTE | 2018-02-12 06:40 | NUR ---
BILINGUAL CUSTOMER SERVICE SPECIALIST NOTES PT IN BED, RESTING COMFORTABLY AT THIS TIME, AROUSES EASILY, A/0 X 2, VERBALLY RESPONSIVE. NO DISTRESS, NOR SOB NOTED. ON SR 72 ON TELE MONITOR AT THIS TIME. IV SITE ON RFA INTACT AND PATENT, NO S/S OF INFILTRATION NOTED. SECURED PROPERLY. FC IS INTACT AND PATENT, DRAINING WELL WITH CLEAR YELLOW URINE. ALL NEEDS ATTENDED AND MET. KEPT COMFORTABLE. NO C/O PAIN OR DISCOMFORT AT THIS TIME. CALL LIGHT WITHIN REACH. SAFETY PRECAUTIONS OBSERVED. WILL ENDORSE TO NEXT SHIFT ACCORDINGLY FOR TAQUERIA.
[2018-02-12 06:42] LABS: BASOPHILS % (AUTO) 0.1 % (0.0-2.0); EOSINOPHILS % (AUTO) 3.9 % (0.0-6.0); HEMATOCRIT 33 % (39-51); LYMPHOCYTES # (AUTO) 1.3 /CMM (0.8-4.8); LYMPHOCYTES % (AUTO) 11.3 % (20.0-44.0); MEAN CORPUSCULAR HGB CONC 33 g/dl (31.0-36.0); MEAN CORPUSCULAR VOLUME 97 fL (80-96); MONOCYTES # (AUTO) 0.6 /CMM (0.1-1.30); MONOCYTES % (AUTO) 5.3 % (2.0-12.0); NEUTROPHILS # (AUTO) 9.3 /CMM (1.8-8.9); NEUTROPHILS % (AUTO) 79.4 % (43.0-81.0); PLATELET COUNT (AUTO) 185 /CMM (150-450); RED BLOOD CELL COUNT(AUTO) 3.44 MIL/uL (4.5-6.0); WHITE BLOOD COUNT (AUTO) 11.7 K/uL (4.3-11.0)
[2018-02-12 06:55] LABS: CALCIUM, SERUM 8.2 mg/dL (8.5-10.1); CARBON DIOXIDE 27 mmol/L (21-32); CHLORIDE 105 mmol/L (98-107); CHOLESTEROL 164 mg/dL (<200); GLUCOSE 112 mg/dL (74-106); HDL CHOLESTEROL 30 mg/dL (40-60); LDL 110 mg/dL (0-99); MAGNESIUM 1.6 mg/dL (1.8-2.4); PHOSPHORUS 3.1 mg/dL (2.5-4.9); SODIUM SERUM 139 mmol/L (136-145); TRIGLYCERIDES 167 mg/dL (30-150); UREA NITROGEN, BLOOD 13 mg/dL (7-18)
--- NOTE | 2018-02-12 07:20 | NUR ---
PLACED A CALL TO SON : MIRA PARK , REGARDING CONSENT FOR BILATERAL HAND MITTENS, LEFT A VOICEMAIL AWAITING FOR A CALL BACK, ENDORSED TO NEXT SHIFT ACCORDINGLY FOR TAQUERIA.
--- NOTE | 2018-02-12 07:30 | NUR ---
AUTO BODY BUILDER APPRENTICE OPENING NOTES RECEIVED PT LAYING IN BED WITH HOB SLIGHTLY ELEVATED. PT IS A/O X2, AFEBRILE. RESPIRATIONS ARE EVEN AND UNLABORED, NOT IN ANY ACUTE DISTRESS NOTED. CURRENTLY ON O2 @3L/MIN VIA NC, TOLERATING WELL. PT DENIES ANY PAIN, SOB, N/V. IV SITE TO RFA INTACT, NO INFILTRATION NOTED. DRESSING KEPT CLEAN AND DRY. IV FLUIDS RUNNING AT 75ML/HR, TOLERATING WELL. SAFETY MEASURES ARE ARE IN PLACE. BED IS IN ITS LOWEST AND LOCKED POSITION. INSTRUCTED PT TO USE CALL LIGHT WHEN ASSISTANCE IS NEEDED, CALL LIGHT IS LEFT WITHIN REACH. WILL CONTINUE TO MONITOR THROUGHOUT SHIFT FOR CONTINUITY OF CARE.
[2018-02-12 08:00] VITALS: BP 103/55
--- NOTE | 2018-02-12 09:30 | NUR ---
MS RN NOTES-- PT SEEN AND EXAMINED BY JINNY MARLEY. JINNY ALSO MADE AWARE TO REVIEW MED RECON.
[2018-02-12] MEDS: Magnesium 1GM/D5W 100ML PREMIX 100 ML IV SCH ×2 (10:35→11:41)
[2018-02-12] MEDS: IV NS 0.9% 1,000 ML IV PRN (10:35)
[2018-02-12 16:00] VITALS: BP 106/66
--- NOTE | 2018-02-12 18:19 | NUR ---
MS RN CLOSING NOTES ALL DUE MEDS GIVEN, NEEDS MET AND RENDERED. PT IS A/O X3, AFEBRILE. RESPIRATIONS ARE EVEN AND UNLABORED, NOT IN ANY ACUTE DISTRESS NOTED. PT DENIES ANY PAIN, SOB, N/V. CLAIRE CATH REMOVED. PT ABLE TO URINATE WITH 3 DIAPER CHANGES, URINE NOTED YELLOW W/ NO SEDIMENTS OR HEMATURIA NOTED. IV SITE INTACT, NO INFILTRATION NOTED. DRESSING KEPT CLEAN AND DRY. IV FLUIDS RUNNING AT 75ML/HR, TOLERATING WELL. FAMILY AT BEDSIDE. SAFETY MEASURES ARE IN PLACE. REMINDED PT TO USE CALL LIGHT WHEN ASSISTANCE IS NEEDED, CALL LIGHT IS LEFT WITHIN REACH. WILL ENDORSE TO NEXT SHIFT FOR CONTINUITY OF CARE.
--- NOTE | 2018-02-12 19:20 | NUR ---
MS RN OPENING NOTES RECEIVED PT IN BED, RESTING COMFORTABLY AT THIS TIME, DTR AT BEDSIDE. AROUSES EASILY, A/0 X 2, VERBALLY RESPONSIVE. NO DISTRESS, NOR SOB NOTED. IV SITE ON RFA INTACT AND PATENT, NO S/S OF INFILTRATION NOTED. IVF INFUSING WELL. ALL NEEDS ATTENDED AND MET. KEPT COMFORTABLE. NO C/O PAIN OR DISCOMFORT AT THIS TIME. CALL LIGHT WITHIN REACH. SAFETY PRECAUTIONS OBSERVED. WILL CONTINUE TO MONITOR.
[2018-02-12 20:00] VITALS: BP 126/69
[2018-02-12] MEDS: CEFTRIAXONE 1 G in IV D5W 50 ML IV SCH (20:15)
[2018-02-13] MEDS: IV NS 0.9% 1,000 ML IV PRN (02:39)
[2018-02-13 06:47] LABS: CALCIUM, SERUM 8.6 mg/dL (8.5-10.1); CARBON DIOXIDE 26 mmol/L (21-32); CHLORIDE 103 mmol/L (98-107); CREATININE 0.8 mg/dL (0.6-1.3); GLUCOSE 132 mg/dL (74-106); POTASSIUM 3.8 mmol/L (3.5-5.1); SODIUM SERUM 138 mmol/L (136-145); UREA NITROGEN, BLOOD 11 mg/dL (7-18)
--- NOTE | 2018-02-13 06:50 | NUR ---
MS RN CLOSING NOTES PT IN BED, RESTING COMFORTABLY AT THIS TIME, AROUSES EASILY, A/0 X 2, VERBALLY RESPONSIVE. NO DISTRESS, NOR SOB NOTED. IV SITE ON RFA INTACT AND PATENT, NO S/S OF INFILTRATION NOTED. IVF INFUSING WELL. ALL NEEDS ATTENDED AND MET. KEPT COMFORTABLE. NO C/O PAIN OR DISCOMFORT AT THIS TIME. CALL LIGHT WITHIN REACH. SAFETY PRECAUTIONS OBSERVED. WILL ENDORSE TO NEXT SHIFT FOR TAQUERIA..
--- NOTE | 2018-02-13 07:21 | NUR ---
MS RN OPENING NOTES RECEIVED PT LAYING IN BED WITH HOB SLIGHTLY ELEVATED. PT IS A/O X3, AFEBRILE. RESPIRATIONS ARE EVEN AND UNLABORED, NOT IN ANY ACUTE DISTRESS NOTED. CURRENTLY ON O2 @2L/MIN VIA NC, TOLERATING WELL. PT DENIES ANY PAIN, SOB, N/V. IV SITE TO RFA INTACT, NO INFILTRATION NOTED. DRESSING KEPT CLEAN AND DRY. IV FLUIDS RUNNING AT 75ML/HR, TOLERATING WELL. SAFETY MEASURES ARE ARE IN PLACE. BED IS IN ITS LOWEST AND LOCKED POSITION. INSTRUCTED PT TO USE CALL LIGHT WHEN ASSISTANCE IS NEEDED, CALL LIGHT IS LEFT WITHIN REACH. WILL CONTINUE TO MONITOR THROUGHOUT SHIFT FOR CONTINUITY OF CARE.
[2018-02-13 08:00] VITALS: BP 129/81
[2018-02-13 08:34] VITALS: BP 129/81
[2018-02-13 11:10] LABS: BASOPHILS % (AUTO) 0.4 % (0.0-2.0); EOSINOPHILS % (AUTO) 4.8 % (0.0-6.0); HEMATOCRIT 34 % (39-51); HEMOGLOBIN 10.8 g/dL (13.5-17.5); LYMPHOCYTES # (AUTO) 1.3 /CMM (0.8-4.8); LYMPHOCYTES % (AUTO) 12.8 % (20.0-44.0); MEAN CORPUSCULAR HGB CONC 32 g/dl (31.0-36.0); MEAN CORPUSCULAR VOLUME 98 fL (80-96); MONOCYTES # (AUTO) 0.5 /CMM (0.1-1.30); MONOCYTES % (AUTO) 5.3 % (2.0-12.0); NEUTROPHILS # (AUTO) 7.8 /CMM (1.8-8.9); NEUTROPHILS % (AUTO) 76.7 % (43.0-81.0); PLATELET COUNT (AUTO) 198 /CMM (150-450); RDW COEFFICIENT OF VARIATION 18.5 (11.5-15.0); RED BLOOD CELL COUNT(AUTO) 3.45 MIL/uL (4.5-6.0); WHITE BLOOD COUNT (AUTO) 10.1 K/uL (4.3-11.0)
[2018-02-13 16:04] VITALS: BP 123/68
--- NOTE | 2018-02-13 18:20 | NUR ---
MS RN CLOSING NOTES ALL DUE MEDS GIVEN, NEEDS MET AND RENDERED. PT IS A/O X3, AFEBRILE. RESPIRATIONS ARE EVEN AND UNLABORED, NOT IN ANY ACUTE DISTRESS NOTED. PT DENIES ANY PAIN, SOB, N/V. IV SITE INTACT, NO INFILTRATION NOTED. DRESSING KEPT CLEAN AND DRY. PT DENIES ANY BLADDER DISCOMFORT AND ABLE TO URINATE USING URINAL OR BRP. URINE NOTED YELLOW W/ NO SEDIMENTS OR HEMATURIA. FAMILY AT BEDSIDE. SAFETY MEASURES ARE IN PLACE. REMINDED PT TO USE CALL LIGHT WHEN ASSISTANCE IS NEEDED, CALL LIGHT IS LEFT WITHIN REACH. WILL ENDORSE TO NEXT SHIFT FOR CONTINUITY OF CARE.
[2018-02-13] MEDS: HYDROCODONE/APAP 5/325MG 1 EACH TABLET PO PRN (19:57)
[2018-02-13 20:00] VITALS: BP 139/75
--- NOTE | 2018-02-13 20:00 | NUR ---
MS RN NOTE: PATIENT RESTING IN BED, NO ACUTE DISTRESS NOTED. BREATHING EVEN AND UNLABORED, NO SOB NOTED. IV TO RFA IN PLACE. PATIENT COMPLAINS OF PAIN TO RIGHT SHOULDER, NORCO 5/325MG 1 TAB ORAL GIVEN PER MD ORDER. BED LOCKED AND IN LOWEST POSITION, CALL LIGHT IN REACH. WILL CONTINUE TO MONITOR.
[2018-02-13] MEDS: CEFTRIAXONE 1 G in IV D5W 50 ML IV SCH (21:56)
[2018-02-14] MEDS: HYDROCODONE/APAP 5/325MG 1 EACH TABLET PO PRN (03:41)
--- NOTE | 2018-02-14 03:43 | NUR ---
MS RN NOTE: PATIENT COMPLAINS OF PAIN TO RIGHT SHOULDER, NORCO 5/325MG 1 TAB ORAL GIVEN PER MD ORDER. WILL CONTINUE TO MONITOR.
--- NOTE | 2018-02-14 06:10 | NUR ---
MS RN NOTE: PATIENT RESTING IN BED, NO ACUTE DISTRESS NOTED. BREATHING EVEN AND UNLABORED, NO SOB NOTED. IV TO RFA IN PLACE. BED LOCKED AND IN LOWEST POSITION, CALL LIGHT IN REACH. WILL ENDORSE TO DAY NURSE TO CONTINUE WITH PLAN OF CARE.
[2018-02-14 06:32] LABS: BASOPHILS % (AUTO) 0.1 % (0.0-2.0); EOSINOPHILS % (AUTO) 7.1 % (0.0-6.0); HEMATOCRIT 32 % (39-51); HEMOGLOBIN 10.7 g/dL (13.5-17.5); LYMPHOCYTES # (AUTO) 1.5 /CMM (0.8-4.8); LYMPHOCYTES % (AUTO) 17.8 % (20.0-44.0); MEAN CORPUSCULAR HGB CONC 33 g/dl (31.0-36.0); MEAN CORPUSCULAR VOLUME 97 fL (80-96); MONOCYTES # (AUTO) 0.6 /CMM (0.1-1.30); MONOCYTES % (AUTO) 6.6 % (2.0-12.0); NEUTROPHILS # (AUTO) 5.9 /CMM (1.8-8.9); NEUTROPHILS % (AUTO) 68.4 % (43.0-81.0); PLATELET COUNT (AUTO) 198 /CMM (150-450); RDW COEFFICIENT OF VARIATION 18.4 (11.5-15.0); RED BLOOD CELL COUNT(AUTO) 3.32 MIL/uL (4.5-6.0); WHITE BLOOD COUNT (AUTO) 8.6 K/uL (4.3-11.0)
[2018-02-14 06:39] LABS: CALCIUM, SERUM 8.9 mg/dL (8.5-10.1); CARBON DIOXIDE 27 mmol/L (21-32); CHLORIDE 102 mmol/L (98-107); CREATININE 0.9 mg/dL (0.6-1.3); GLUCOSE 120 mg/dL (74-106); PHOSPHORUS 3.1 mg/dL (2.5-4.9); POTASSIUM 4.5 mmol/L (3.5-5.1); SODIUM SERUM 136 mmol/L (136-145); UREA NITROGEN, BLOOD 10 mg/dL (7-18)
--- NOTE | 2018-02-14 07:05 | NUR ---
MS RN INITIAL NOTES Report received at bedside. Patient received in bed, sleeping comfortably, easily aroused. Not in any type of distress. On antibiotic for possible PNA. No SOB/labored breathing noted. Safety measures in place. Will continue to monitor and assess patient
[2018-02-14 08:00] VITALS: BP 127/76
[2018-02-14] MEDS ORDERED: AZIT250T13 PO (08:38)
[2018-02-14] MEDS ORDERED: AZITHROMYCIN 250 MG TABLET PO ONE (09:00)
--- NOTE | 2018-02-14 09:51 | NUR ---
MS RN NOTES Spoke to son, Alejo, and inform him of discharge plan today. Verbalized understanding. Julius (Daughter) [phone]
--- NOTE | 2018-02-14 11:20 | NUR ---
MS RN - DISCHARGE NOTES Patient is cleared for discharge. Medically stable. Denies any pain. No SOB/labored breathing noted. Not in any type of distress. Afebrile. Belongings form signed. Exit care forms signed. Discharge instructions given to Daughter (Julius) and patient; Both verbalized understanding. Discharge papers provided to daughter. IV access removed: cath tip intact with no bleeding noted. Photos taken and placed in chart. Prescription for antibiotic handed to Daughter. All needs anticipated and met. Assisted to change and transported patient to [facility] via wheelchair. Daughter and son-in-law accompanied patient home via private care. Questions and answers addressed. 115/69 76 18 97.9 96% 0/10
== END 2018-02-14 11:30 | disposition home or self-care (01) | DRG 871 ==
LOC: ER 16:24 → TELE 18:22 → MED 02-12 10:57
PROVIDERS: ADMIT Nurse Practitioner Acute Care; ATTEND Nurse Practitioner Acute Care
DX: A41.9 Sepsis, unspecified organism (principal); J15.9 Unspecified bacterial pneumonia; E87.1 Hypo-osmolality and hyponatremia; G93.40 Encephalopathy, unspecified; I10 Essential (primary) hypertension; D64.9 Anemia, unspecified; E78.5 Hyperlipidemia, unspecified; N40.0 Benign prostatic hyperplasia without lower urinary tract symptoms; E11.9 Type 2 diabetes mellitus without complications; F03.90 Unspecified dementia, unspecified severity, without behavioral disturbance, psychotic disturbance, mood disturbance, and anxiety; C61 Malignant neoplasm of prostate; Z79.84 Long term (current) use of oral hypoglycemic drugs; E86.9 Volume depletion, unspecified; I25.10 Atherosclerotic heart disease of native coronary artery without angina pectoris; K25.9 Gastric ulcer, unspecified as acute or chronic, without hemorrhage or perforation; K21.9 Gastro-esophageal reflux disease without esophagitis; Z87.11 Personal history of peptic ulcer disease; Z87.891 Personal history of nicotine dependence
CPT/HCPCS: 36415; 71045-TC; 80048-TC; 80061-TC; 80076-TC; 81000-TC; 83605-TC; 83735-TC; 84100-TC; 84484-TC; 85025-TC; 85730-TC; 87040-TC; 87081-TC; 87086-TC; 97116-TC; 97530-TC; A4216; A4606; G0378; J0696; J1650; J2185; J3475; J7030; J7060; Z7610

== ENCOUNTER 2018-07-08 13:59 | Emergency (ER) | payer MEDICARE, OTHER ==
[~2018-07-08] VITALS: Ht 165.1 cm; Wt 77.6 kg
[~2018-07-08 13:59] MED LIST changes: -AMLO5TAB7 PO; +AZIT250T13 PO; -CALC1TAB30 PO; -CELE-85 PO; -CYAN250014 PO; -DONE5TAB34 PO; +ENZALUTAMIDE PO; -ICOS1CAP PO; -LEVO500T75 PO; -MELA1TAB15 PO; -MUPI22OI7; -ONDA4TAB8 SL; -PANT40SU PO
--- NOTE | 2018-07-08 14:32 | NUR ---
DR SAUCEDO AT BEDSIDE
[2018-07-08] MEDS ORDERED: ACETAMINOPHEN ES 500 MG TABLET ONE ×2 (14:50→14:52)
[2018-07-08 14:57] LABS: BASOPHILS % (AUTO) 0.5 % (0.0-2.0); EOSINOPHILS % (AUTO) 4.9 % (0.0-6.0); HEMATOCRIT 34 % (39-51); HEMOGLOBIN 11.3 g/dL (13.5-17.5); LYMPHOCYTES # (AUTO) 1.7 /CMM (0.8-4.8); LYMPHOCYTES % (AUTO) 20.8 % (20.0-44.0); MEAN CORPUSCULAR HGB CONC 34 g/dl (31.0-36.0); MEAN CORPUSCULAR VOLUME 94 fL (80-96); MONOCYTES # (AUTO) 0.6 /CMM (0.1-1.30); NEUTROPHILS # (AUTO) 5.3 /CMM (1.8-8.9); NEUTROPHILS % (AUTO) 65.8 % (43.0-81.0); PLATELET COUNT (AUTO) 177 /CMM (150-450); RED BLOOD CELL COUNT(AUTO) 3.58 MIL/uL (4.5-6.0); WHITE BLOOD COUNT (AUTO) 8.1 K/uL (4.3-11.0)
[2018-07-08] MEDS ORDERED: ACETAMINOPHEN ES 500 MG TABLET PO ONE (15:00)
[2018-07-08 15:02] LABS: CARBON DIOXIDE 27 mmol/L (21-32); CHLORIDE 97 mmol/L (98-107); CREATININE 0.9 mg/dL (0.6-1.3); GLUCOSE 98 mg/dL (74-106); POTASSIUM 5.1 mmol/L (3.5-5.1); SODIUM SERUM 129 mmol/L (136-145); UREA NITROGEN, BLOOD 16 mg/dL (7-18)
[2018-07-08 15:16] LABS: ALANINE AMINOTRANSFERASE 15 U/L (12-78); ALBUMIN 3.3 g/dL (3.4-5.0); ALKALINE PHOSPHATASE 67 U/L (46-116); ASPARTATE AMINOTRANSFERASE 13 U/L (15-37); BILIRUBIN,DIRECT 0.1 mg/dL (0.0-0.2); BILIRUBIN,TOTAL 0.3 mg/dL (0.2-1.0); LIPASE 160 U/L (73-393); TOTAL PROTEIN, SERUM 7.4 g/dL (6.4-8.2)
[2018-07-08] MEDS ORDERED: IV NS 0.9% 250 ML IV ONE (16:09)
[2018-07-08] MEDS ORDERED: IOHEXOL-300 100 ML VIAL IV ONE (16:09)
[2018-07-08] MEDS ORDERED: CT SWABBABLE VALVE TRANS SET 1 EA INFUS.SET MC ONE (16:09)
--- NOTE | 2018-07-08 17:30 | NUR ---
Patient discharged to home in stable condition. Written and verbal after care instructions given. Patient verbalizes understanding of instruction. IV removed. Catheter intact and site benign. Pressure and 4x4 applied to site. No bleeding noted.
[2018-07-08 17:33] VITALS: BP 120/64
== END 2018-07-08 17:34 | disposition home or self-care (01) ==
LOC: ER 14:10
DX: S30.1XXA Contusion of abdominal wall, initial encounter (principal); S40.812A Abrasion of left upper arm, initial encounter; E87.1 Hypo-osmolality and hyponatremia; F03.90 Unspecified dementia, unspecified severity, without behavioral disturbance, psychotic disturbance, mood disturbance, and anxiety; I10 Essential (primary) hypertension; Z90.49 Acquired absence of other specified parts of digestive tract; E11.9 Type 2 diabetes mellitus without complications; Z85.46 Personal history of malignant neoplasm of prostate; Z60.2 Problems related to living alone; Z98.890 Other specified postprocedural states; W18.39XA Other fall on same level, initial encounter; Y93.89 Activity, other specified; Y92.89 Other specified places as the place of occurrence of the external cause; Y99.8 Other external cause status
CPT/HCPCS: 36415; 74177; 80048; 80076; 83690; 85025; 85730; 99284; A4606; J7050; Q9967

== ENCOUNTER 2018-08-20 20:03 | Inpatient (IN) | payer MEDICARE, OTHER ==
[~2018-08-20] VITALS: Ht 162.6 cm; Wt 78.0 kg
--- NOTE | 2018-08-20 00:05 | NUR ---
ASSISTED SALES REPRESENTATIVE ADMITTING NOTE PT FROM ER, AOX3 FARSI SPEAKING, ON R/A WELL TOLERATED, DENIES ANY PAIN, SKIN INTACT, CONTINENT BOTH B & B RAC # 20 G WITH NS @ 75 ML, ORDERS ENTERED BY TAVO Gustafson NP, ADMITTED FOR HYPONATREMIA, SEIZURE PRECAUTION IN PLACE, SR 70'S ON MONITOR, SAFETY MEASURES IN PLACE, WILL CONT' TO MONITOR THE LYTES.
--- NOTE | 2018-08-20 21:00 | NUR ---
BBSON FROM HOME FOR ABN LABS; PT AAOX2, PT ON MONITOR, VSS, NAD NOTED, PENDING MD SIMONS;
[2018-08-20 21:23] LABS: BASOPHILS # (AUTO) 0.1 /CMM (0.0-0.2); BASOPHILS % (AUTO) 1.4 % (0.0-2.0); EOSINOPHILS % (AUTO) 4.8 % (0.0-6.0); HEMATOCRIT 35 % (39-51); HEMOGLOBIN 11.8 g/dL (13.5-17.5); LYMPHOCYTES # (AUTO) 2.1 /CMM (0.8-4.8); LYMPHOCYTES % (AUTO) 22.4 % (20.0-44.0); MEAN CORPUSCULAR HGB CONC 34 g/dl (31.0-36.0); MEAN CORPUSCULAR VOLUME 95 fL (80-96); MONOCYTES # (AUTO) 0.7 /CMM (0.1-1.30); MONOCYTES % (AUTO) 8.1 % (2.0-12.0); NEUTROPHILS # (AUTO) 5.8 /CMM (1.8-8.9); NEUTROPHILS % (AUTO) 63.3 % (43.0-81.0); PLATELET COUNT (AUTO) 240 /CMM (150-450); RED BLOOD CELL COUNT(AUTO) 3.66 MIL/uL (4.5-6.0); WHITE BLOOD COUNT (AUTO) 9.2 K/uL (4.3-11.0)
[2018-08-20] MEDS ORDERED: IV NS 0.9% 500 ML BAG IV ONE (21:30)
[2018-08-20 22:34] LABS: CALCIUM, SERUM 9.1 mg/dL (8.5-10.1); CARBON DIOXIDE 24 mmol/L (21-32); CHLORIDE 90 mmol/L (98-107); GLUCOSE 91 mg/dL (74-106); POTASSIUM 4.6 mmol/L (3.5-5.1); SODIUM SERUM 123 mmol/L (136-145); UREA NITROGEN, BLOOD 14 mg/dL (7-18)
[2018-08-20 22:48] LABS: ALANINE AMINOTRANSFERASE 16 U/L (12-78); ALBUMIN 3.7 g/dL (3.4-5.0); ALKALINE PHOSPHATASE 58 U/L (46-116); ASPARTATE AMINOTRANSFERASE 15 U/L (15-37); BILIRUBIN,DIRECT 0.1 mg/dL (0.0-0.2); BILIRUBIN,TOTAL 0.3 mg/dL (0.2-1.0); LIPASE 158 U/L (73-393); TOTAL PROTEIN, SERUM 7.5 g/dL (6.4-8.2)
--- NOTE | 2018-08-20 23:16 | NUR ---
ADMIT ROOM 111-2 TELE DX HYPONATREMIA ACCEPTED RADHA MARLEY
[2018-08-20] MEDS ORDERED: DEXTROSE 50%-WATER 50 ML DISP.SYRIN IV PRN (23:30)
[2018-08-20] MEDS ORDERED: HYDROCODONE/APAP 5/325MG 1 EACH TABLET PO PRN (23:30)
[2018-08-20] MEDS ORDERED: MAGNESIUM HYDROXIDE 30 ML UDC PO PRN (23:30)
[2018-08-20] MEDS ORDERED: ONDANSETRON HCL/PF 4 MG/2 ML VIAL IVP PRN (23:30)
[2018-08-20] MEDS ORDERED: ACETAMINOPHEN 325 MG TABLET PO PRN (23:30)
[2018-08-20] MEDS ORDERED: Z GUARD REMEDY 2 OZ OINT TP PRN (23:30)
[2018-08-20] MEDS ORDERED: MAG HYDROX/AL HYDROX/SIMETH 30 ML UDC PO PRN (23:30)
[2018-08-21] MEDS ORDERED: ENOXAPARIN SODIUM 40 MG/0.4 ML DISP.SYRIN SQ ONE
--- NOTE | 2018-08-21 00:10 | NUR ---
REPORT GIVEN TO LIZBETH BERKOWITZ RN FOR TAQUERIA; PT WILL BE TRANSPORTED TO 1ST FLOOR VIA ACLS PROTOCOL
[2018-08-21 00:36] VITALS: BP 129/67
[2018-08-21] MEDS: IV NS 0.9% 1,000 ML IV PRN ×2 (01:19→15:07)
--- NOTE | 2018-08-21 06:31 | NUR ---
E LEARNING DEVELOPER CLOSING NOTE PT , AOX3 FARSI SPEAKING, ON R/A WELL TOLERATED, DENIES ANY PAIN, SKIN INTACT, CONTINENT BOTH B & B RAC # 20 G WITH NS @ 75 ML, ADMITTED FOR HYPONATREMIA, SEIZURE PRECAUTION IN PLACE, SR 70'S ON MONITOR, SAFETY MEASURES IN PLACE, WILL CONT' TO MONITOR THE LYTES.
[2018-08-21 06:33] LABS: BASOPHILS # (AUTO) 0.1 /CMM (0.0-0.2); BASOPHILS % (AUTO) 0.7 % (0.0-2.0); HEMATOCRIT 36 % (39-51); HEMOGLOBIN 12.4 g/dL (13.5-17.5); LYMPHOCYTES # (AUTO) 1.6 /CMM (0.8-4.8); LYMPHOCYTES % (AUTO) 21.5 % (20.0-44.0); MEAN CORPUSCULAR HGB CONC 34 g/dl (31.0-36.0); MEAN CORPUSCULAR VOLUME 93 fL (80-96); MONOCYTES # (AUTO) 0.6 /CMM (0.1-1.30); MONOCYTES % (AUTO) 7.9 % (2.0-12.0); NEUTROPHILS # (AUTO) 4.8 /CMM (1.8-8.9); NEUTROPHILS % (AUTO) 64.9 % (43.0-81.0); PLATELET COUNT (AUTO) 181 /CMM (150-450); RED BLOOD CELL COUNT(AUTO) 3.87 MIL/uL (4.5-6.0); WHITE BLOOD COUNT (AUTO) 7.4 K/uL (4.3-11.0)
[2018-08-21 06:49] LABS: CALCIUM, SERUM 8.9 mg/dL (8.5-10.1); CARBON DIOXIDE 24 mmol/L (21-32); CHLORIDE 97 mmol/L (98-107); CREATININE 0.8 mg/dL (0.6-1.3); GLUCOSE 106 mg/dL (74-106); MAGNESIUM 1.8 mg/dL (1.8-2.4); PHOSPHORUS 3.1 mg/dL (2.5-4.9); POTASSIUM 4.4 mmol/L (3.5-5.1); SODIUM SERUM 131 mmol/L (136-145); UREA NITROGEN, BLOOD 13 mg/dL (7-18)
[2018-08-21 07:01] LABS: CHOLESTEROL 228 mg/dL (<200); HDL CHOLESTEROL 28 mg/dL (40-60); LDL 154 mg/dL (0-99); THYROID STIMULATING HORMONE 1.368 uIU/mL (0.358-3.74); TRIGLYCERIDES 243 mg/dL (30-150)
--- NOTE | 2018-08-21 07:20 | NUR ---
SHINGLE CUTTER OPENING NOTES RECEIVED REPORT FROM WORKERS COMPENSATION SPECIALIST RN. PT SITTING IN BED IN SEMI RENEE POSITION WITH A 22 GAUGE RFA IV RUNNING NS@ 75ML/HR. PT DENIES ANY SOB OR PAIN AT PRESENT MOMENT. BED IS LOCKED AND IN LOWEST POSITION. CALL LIGHT WITHIN REACH. PT IS A&O X3 WITH HX OF DEMENTIA. WILL CONTINUE TO MONITOR.
[2018-08-21 08:00] VITALS: BP 107/59
[2018-08-21] MEDS: BLOOD SUGAR DIAGNOSTIC 1 EACH STRIP IN SCH ×4 (08:15→21:41)
[2018-08-21] MEDS: MEMANTINE HCL 5 MG TABLET PO SCH (09:13)
[2018-08-21] MEDS: MIRTAZAPINE 15 MG TABLET PO SCH (09:14)
[2018-08-21 09:41] VITALS: BP_SYST 107; BP_SYST 133; BP_DIAS 59; BP_DIAS 89
[2018-08-21 12:00] VITALS: BP 110/67
--- NOTE | 2018-08-21 13:05 | NUR ---
SPOKE WITH SON MIRA STATES HE WILL BRING IN PT'S OWN MEDICATION ENALUTAMIDE WHEN HE GETS OFF WORK AROUND 1900.
[2018-08-21 16:00] VITALS: BP 118/65
--- NOTE | 2018-08-21 18:29 | NUR ---
RN CLOSING NOTES REPORT WILL BE GIVEN TO DIRECTOR INSTRUMENTATION RN. PT SITTING IN BED IN SEMI RENEE POSITION WITH A 22 GAUGE RFA IV RUNNING NS@ 75ML/HR. PT DENIES ANY SOB OR PAIN AT PRESENT MOMENT. BED IS LOCKED AND IN LOWEST POSITION. CALL LIGHT WITHIN REACH. PT IS A&O X2 WITH HX OF DEMENTIA. WILL ENDORSE CONTINUITY OF CARE TO DIRECTOR INSTRUMENTATION RN.
--- NOTE | 2018-08-21 20:32 | NUR ---
FRONT OFFICE SPEC INITIAL NOTES RECEIVED REPORT FROM AM SHIFT RN. PT AWAKE, AOX2 WITH CONFUSION , HX OF DEMENTIAL, HOB ELEVATED, WITH ORDER FOR UA, COLLECTED AND SENT. WITH A 22 GAUGE RFA IV RUNNING NS@ 75ML/HR. PT DENIES ANY SOB C/O H/A PRN TYLENOL WILL BE GIVEN. BED IS LOCKED AND IN LOWEST POSITION. CALL LIGHT WITHIN REACH. PT IS A&O X3 WITH HX OF DEMENTIA. WILL CONTINUE TO MONITOR.
[2018-08-21 20:47] VITALS: BP 133/90
[2018-08-21 20:50] LABS: APPEARANCE,URINE SL CLOUDY (CLEAR); BILIRUBIN,URINE NEGATIVE (NEGATIVE); BLOOD, URINE NEGATIVE Ery/uL (NEGATIVE); COLOR,URINE YELLOW (YELLOW); KETONES,URINE NEGATIVE (NEGATIVE); LEUKOCYTE ESTERASE ,URINE 1+ (NEGATIVE); NITRITE, URINE NEGATIVE (NEGATIVE); PH,URINE 7.5 (5.0-8.0); PROTEIN,URINE NEGATIVE (NEGATIVE); UGLUCOSE NEGATIVE (NEGATIVE); UROBILINOGEN,URINE 0.2 EU/dL (0.2)
[2018-08-21 20:57] LABS: BACTERIA,URINE Rare /HPF (None Seen); RBC,URINE 0-2 /HPF (0-2); SQUAMOUS EPITHELIAL CELL,UR Rare /HPF (None Seen)
[2018-08-21 20:59] LABS: URINE SODIUM, RANDOM 94 mmol/l (40-220)
[2018-08-21] MEDS: ENOXAPARIN SODIUM 40 MG/0.4 ML DISP.SYRIN SQ SCH (21:41)
[2018-08-21 21:45] LABS: OSMOLALITY,URINE 255 mOS/kg (340-1090)
--- NOTE | 2018-08-21 23:13 | NUR ---
Patient primary language is Farsi, spoke with bryanna Dhillon. Son states patient lives alone in the senior housing apartment. Patient is semi-independent with adl's and ambulates with a walker. Son states that patient goes outside apartment and walks daily around neighborhood. He owns a cane and a walker. His daughter and son lives next [facility] and visits patient everyday. Bryanna Dhillon is the [facility] caregiver/provider. Family does not want patient to go to SNF. Bryanna Dhillon [phone] will provide ride home when discharge. Addendum: 08/21/18 at 2313 by ISAIAH BEDOYA RN Amended: Links added.
[2018-08-22 00:26] VITALS: BP 130/77
[2018-08-22 04:19] VITALS: BP 130/66
--- NOTE | 2018-08-22 06:14 | NUR ---
ORDER MANAGEMENT SPECIALIST CLOSING NOTES REPORT GIVEN TO AM SHIFT RN. PT AWAKE, AOX2 WITH CONFUSION , HX OF DEMENTIAL, HOB ELEVATED, WITH ORDER FOR UA, COLLECTED AND SENT. WITH A 22 GAUGE RFA IV RUNNING NS@ 75ML/HR. PT DENIES ANY SOB OR PAIN. BED IS LOCKED AND IN LOWEST POSITION. CALL LIGHT WITHIN REACH. PT IS A&O X3 WITH HX OF DEMENTIA. WILL CONTINUE TO MONITOR.
[2018-08-22] MEDS: IV NS 0.9% 1,000 ML IV PRN (06:16)
--- NOTE | 2018-08-22 07:15 | NUR ---
VAN LOADER OPENING NOTES RECEIVED REPORT FROM PM NURSE. PT AWAKE, AOX2 WITH CONFUSION .ON TELE MONITOR SR WITH HR 75.IV ON RFA WITH # 22 GAUGE RUNNING NS@ 75ML/HR. PT DENIES ANY SOB NO DISTRESS AND NO PAIN. BED IS LOCKED AND IN LOWEST POSITION. CALL LIGHT WITHIN REACH. SRX2.WILL CONTINUE TO MONITOR.
[2018-08-22] MEDS: BLOOD SUGAR DIAGNOSTIC 1 EACH STRIP IN SCH ×4 (07:45→23:13)
[2018-08-22 08:00] VITALS: BP 121/65
[2018-08-22 08:21] LABS: CALCIUM, SERUM 8.8 mg/dL (8.5-10.1); CARBON DIOXIDE 23 mmol/L (21-32); CHLORIDE 102 mmol/L (98-107); CREATININE 0.8 mg/dL (0.6-1.3); GLUCOSE 105 mg/dL (74-106); MAGNESIUM 1.8 mg/dL (1.8-2.4); PHOSPHORUS 3.5 mg/dL (2.5-4.9); POTASSIUM 4.4 mmol/L (3.5-5.1); SODIUM SERUM 136 mmol/L (136-145); UREA NITROGEN, BLOOD 16 mg/dL (7-18)
[2018-08-22 08:25] LABS: THYROID STIMULATING HORMONE 1.414 uIU/mL (0.358-3.74); URIC ACID 4.2 mg/dL (2.6-7.2)
[2018-08-22] MEDS: MEMANTINE HCL 5 MG TABLET PO SCH (08:49)
[2018-08-22] MEDS: MIRTAZAPINE 15 MG TABLET PO SCH (08:49)
[2018-08-22] MEDS: CEFTRIAXONE 1 G in IV D5W 50 ML IV SCH (12:18)
--- NOTE | 2018-08-22 13:30 | NUR ---
MS RN NOTE SEEN BY GROUP HOME MANAGER BRANDON,UPDATED ABOUT PATIENT CONDITION WITH LABS,MADE AWARE THAT PATIENT HAS MILD WHEEZING.GOT NEW ORDERS.WILL CONTINUE TO MONITOR.
[2018-08-22 16:00] VITALS: BP 142/83
[2018-08-22 16:23] VITALS: BP 142/83
[2018-08-22] MEDS: DOCUSATE SODIUM 100 MG CAPSULE PO SCH (16:31)
--- NOTE | 2018-08-22 17:30 | NUR ---
MS RN NOTE PATIENT ON FLUID RESTRICTION NOW AND WHILE D/C HOME.GOT NEW ORDER FOR COLACE.
--- NOTE | 2018-08-22 18:00 | NUR ---
MS RN NOTE MEDICATION XTANDI GIVEN TO THE PHARMACY.
--- NOTE | 2018-08-22 18:41 | NUR ---
CHANGE LEAD CLOSING NOTES PT AWAKE, AOX2 WITH CONFUSION .IV ON LW# 22 . PT DENIES ANY SOB NO DISTRESS AND NO PAIN. BED IS LOCKED AND IN LOWEST POSITION. CALL LIGHT WITHIN REACH. SRX2.BALL MILL MIXER BRANDON MADE AWARE ABOUT C XRAY RESULT.NNO.WILL ENDORSE TO PM NURSE FOR TAQUERIA..
[2018-08-22 20:00] VITALS: BP 118/64
--- NOTE | 2018-08-22 20:00 | NUR ---
IVY RN OPENING NOTES RECEIVED REPORT REPORT FROM AM NURSE. PT IS SLEEPING, AOX2 WITH CONFUSION .IV ON LEFT WRIST # 22 GAUGE IS PATIENT AND INTACT. PT DENIES ANY SOB NO DISTRESS AND NO PAIN AT THIS TIME . PT SON IS AT THE BEDSIDE. BED IS LOCKED AND IN LOWEST POSITION. CALL LIGHT WITHIN REACH. SRX2.WILL CONTINUE TO MONITOR PT CLOSELY.
--- NOTE | 2018-08-22 22:00 | NUR ---
RN NOTES PATIENT IS AWAKE, CONFUSED AND AGITATED. PATIENT PULLED HIS IV LINE AND WAS TRYING TO GET OUT OF BED. DUE TO PT CONFUSION PATIENT HAS BEEN MOVED TO ROOM 118-1 CLOSER TO NURSING STATION FOR PATIENT'S SAFETY. TRIED TO START NEW IV LINE BUT PATIENT WAS AGITATED AND WAS GETTING ANGRY. PATIENT IS FARCY SPEAKING ONLY. USED EMELI PHONE TO CALL PURCHASING EXPEDITOR ID #[id number] MORED TO BE ABLE TO COMMUNICATE WITH THE PATIENT. BY PURCHASING EXPEDITOR TRANSLATION PATIENT IS VERY CONFUSED AND WANTS TO TALK TO HIS SON. ALSO PATIENT DOESN'T WANT ANY IV LINES AT THIS TIME. WILL TRY TO START NEW IV LINE IN THE MORNING AGAIN. PATIENT REFUSED TO BE IN THE ROOM AND IS SITTING NEXT TO THE NURSING STATION ON THE CHAIR. FINALLY TALKED TO HIS SON AND AGREED TO GO TO HIS ROOM LATER TO SLEEP. WILL CONTINUE TO MONITOR PATIENT CLOSELY AND HELP THE PATIENT TO HIS ROOM.
[2018-08-22] MEDS: ENOXAPARIN SODIUM 40 MG/0.4 ML DISP.SYRIN SQ SCH (23:12)
[2018-08-22] MEDS: INSULIN REGULAR, HUMAN 100 UNIT/ML 3 ML VIAL SQ PRN (23:25)
[2018-08-23 04:00] VITALS: BP 110/66
[2018-08-23 06:15] LABS: CALCIUM, SERUM 8.8 mg/dL (8.5-10.1); CARBON DIOXIDE 23 mmol/L (21-32); CHLORIDE 101 mmol/L (98-107); CREATININE 0.9 mg/dL (0.6-1.3); GLUCOSE 127 mg/dL (74-106); POTASSIUM 4.3 mmol/L (3.5-5.1); SODIUM SERUM 137 mmol/L (136-145); UREA NITROGEN, BLOOD 23 mg/dL (7-18)
[2018-08-23 08:00] VITALS: BP 145/59
--- NOTE | 2018-08-23 08:00 | NUR ---
MS RN NOTES RECEIVED PT IN BED. NOTED CONFUSION. ON ROOM AIR NO SOB NOTED. PT HAS L HAND HEP LOCK INTACT. FLUSHED WELL. BS CHECK 112 NO COVERAGE NEEDED. BED LOCKED IN LOW POSITION. SAFETY MEASURE OBSERVED. CALL LIGHT WITHIN REACHED. WILL CONTINUE TO PLAN OF CARE. PLAN OF CARE DISCUSSED WITH PATIENT.
[2018-08-23] MEDS: BLOOD SUGAR DIAGNOSTIC 1 EACH STRIP IN SCH ×4 (08:39→21:57)
[2018-08-23] MEDS: MEMANTINE HCL 5 MG TABLET PO SCH (08:43)
[2018-08-23] MEDS: DOCUSATE SODIUM 100 MG CAPSULE PO SCH ×2 (08:43→16:39)
[2018-08-23] MEDS: MIRTAZAPINE 15 MG TABLET PO SCH (08:44)
[2018-08-23] MEDS: XTANDI PO SCH (08:46)
--- NOTE | 2018-08-23 10:29 | NUR ---
MS RN NOTE ASSISTED TO BR ,ABLE TO AMBULATE WITH WALKER WITH MOD ASSISTANCE ABLE TO MAKE BM, KEEP CLEAN DRY WILL CONT TO MONITOR CLOSELY.
[2018-08-23] MEDS: CEFTRIAXONE 1 G in IV D5W 50 ML IV SCH (12:42)
[2018-08-23] MEDS: INSULIN REGULAR, HUMAN 100 UNIT/ML 3 ML VIAL SQ PRN (12:44)
[2018-08-23] MEDS ORDERED: CEFTRIAXONE 1 G in IV D5W 50 ML IV SCH (13:30)
--- NOTE | 2018-08-23 14:00 | NUR ---
MS RN NOTE SEEN BY BRANDON RN DNP WITH NEW ORDER GIVEN , ALL NEEDS ATTENDED, ABLE TO EAT LUNCH SELF, WILL CONT TO MONITOR CLOSELY
--- NOTE | 2018-08-23 14:21 | NUR ---
MS RN NOTES PER BRANDON GALVAN DNP TO BE ARRANGED HOME WITH PT BY MEDICAL I D SALES. CALLED [facility] NOTIFY ABOUT IT. STATED WE WILL DO ARRANGEMENT.
[2018-08-23 15:00] VITALS: BP 149/67
--- NOTE | 2018-08-23 15:49 | NUR ---
MS RN NOTES ROUNDS MADE. PATIENT RESTING COMFORTABLY. CALL LIGHT WITHIN REACH. TURN AND REPOSITION DONE. WILL CONTINUE PLAN OF CARE.
[2018-08-23 16:00] VITALS: BP 149/67
--- NOTE | 2018-08-23 18:29 | NUR ---
MS RN NOTES FAMILY AT BEDSIDE. ABLE TO EAT BY HIM SELF. KEEP CLEAN AND DRY. CALL LIGHT WITHIN REACH. WILL CONTINUE TO MONITOR.
[2018-08-23 19:46] VITALS: BP 154/70
[2018-08-23 20:00] VITALS: BP 154/70
--- NOTE | 2018-08-23 20:00 | NUR ---
RN OPENING NOTES RECEIVED PT IN BED, AOX2 WITH CONFUSION .IV ON LEFT WRIST # 22 GAUGE IS PATIENT AND INTACT. FAMILY AT BED SIDE. PT DENIES ANY SOB NO DISTRESS AND NO PAIN AT THIS TIME. BED IS LOCKED AND IN LOWEST POSITION. CALL LIGHT WITHIN REACH. SRX2. ALL SAFETY PRECAUTIONS TAKEN . BED ALARM ENGAGED. WILL CONTINUE TO MONITOR PT CLOSELY.
--- NOTE | 2018-08-23 20:30 | NUR ---
RN NOTES MOVED PT CLOSER TO NURSING STATION, FOR PTS SAFETY. WILL CONT TO MONITOR.
[2018-08-23] MEDS: ENOXAPARIN SODIUM 40 MG/0.4 ML DISP.SYRIN SQ SCH (21:56)
[2018-08-24 04:00] VITALS: BP 95/55
[2018-08-24 04:20] VITALS: BP 95/55
--- NOTE | 2018-08-24 07:04 | NUR ---
RN CLOSING NOTES PT AWAKE IN BED , AOX2 WITH CONFUSION .IV ON LW# 22 . PT DENIES ANY SOB NO DISTRESS AND NO PAIN. BED IS LOCKED AND IN LOWEST POSITION. CALL LIGHT WITHIN REACH. SRX2. WILL ENDORSE TO AM NURSE FOR TAQUERIA..
--- NOTE | 2018-08-24 07:05 | NUR ---
MS RN OPENING NOTES RECEIVED PT LYING ON BED,ALERT/ORIENTED X1,EPISODES OF CONFUSION,STAYING CALM ON BED NOW.ON ROOM AIR,TOLERATING WELL.NO SOB AND ACUTE DISTRESS NOTED.IV LINE IS ON LEFT HAND G20,SITE IS CLEAN,DRY AND INTACT AND NO BLEEDING NOTED..BED IS IN LOW POSITION AND LOCKED.CALL LIGHT IS WITHIN REACH.WILL CONTINUE TO MONITOR THE PT CLOSELY.
[2018-08-24 08:00] VITALS: BP 131/66
[2018-08-24] MEDS: BLOOD SUGAR DIAGNOSTIC 1 EACH STRIP IN SCH ×3 (08:06→17:36)
[2018-08-24] MEDS: MIRTAZAPINE 15 MG TABLET PO SCH (08:29)
[2018-08-24] MEDS: MEMANTINE HCL 5 MG TABLET PO SCH (08:29)
[2018-08-24] MEDS: DOCUSATE SODIUM 100 MG CAPSULE PO SCH ×2 (08:29→16:51)
[2018-08-24] MEDS: XTANDI PO SCH (09:08)
[2018-08-24] MEDS: CEFTRIAXONE 1 G in IV D5W 50 ML IV SCH (12:27)
[2018-08-24] MEDS ORDERED: AMPICILLIN TRIHYDRATE 250 MG CAPSULE PO ONE (15:00)
[2018-08-24 16:00] VITALS: BP_SYST 144; BP_SYST 147; BP_DIAS 41; BP_DIAS 67
[2018-08-24] MEDS ORDERED: AMPICILLIN 500 MG in IV NS 0.9% 50 ML IV ONE (16:30)
--- NOTE | 2018-08-24 16:40 | NUR ---
MS RN NOTES FAMILY SUPPORT SPECIALIST BRANDON SAID TO GIVE IV AMPICILLIN ONLY ONCE,NOT PO AMPICILLIN.NEW ORDERS NOTED AND CARRIED OUT.
--- NOTE | 2018-08-24 18:55 | NUR ---
MS RN CLOSING NOTES PT IS LYING ON BED.FRIEND IS AT BEDSIDE.ON ROOM AIR,TOLERATING WELL.NO SOB AND ACUTE DISTRESS NOTED.RESPIRATION IS EVEN AND NONLABORED.NO SIGNIFICANT CHANGES NOTED IN THE SHIFT.ENDORSED TO ASSISTANT PRODUCTION EDITOR RN MARTINEZ TO FOLLOW UP THE DISCHARGE PROCESS.
--- NOTE | 2018-08-24 19:00 | NUR ---
MS RN NOTES THE HOME MEDS XTANDI 40MG 32 TABS GIVEN TO CHIP HENRIQUEZ TO GIVE TO FAMILY,SHE VERIFIED .
--- NOTE | 2018-08-24 19:45 | NUR ---
IVY RN NOTES RECEIVED PT LYING ON BED,ALERT/ORIENTED X1,EPISODES OF CONFUSION,STAYING CALM ON BED WITH SON AND FRIEND AT THE BEDSIDE.PATIENT IS ON ROOM AIR,TOLERATING WELL.NO SOB AND ACUTE DISTRESS NOTED.IV LINE IS ON LEFT HAND G20,SITE IS CLEAN,DRY AND INTACT AND NO BLEEDING NOTED.BED IS IN LOW POSITION AND LOCKED.CALL LIGHT IS WITHIN REACH. PATIENT IS BEING DISCHARGED HOME WITH HIS SON. D/C INSTRUCTIONS AND TEACHING PROVIDED , IV LINE IS REMOVED AND WRIST BEND IS CUT. PATIENT'S BELONGING ARE TAKEN HOME WITH THE PATIENT.
== END 2018-08-24 20:00 | disposition home health service (06) | DRG 640 ==
LOC: ER 20:03 → TELE1 23:20 → MEDSG1 08-22 09:58
PROVIDERS: ADMIT Nurse Practitioner Acute Care; ATTEND Nurse Practitioner Acute Care
DX: E87.1 Hypo-osmolality and hyponatremia (principal); G93.41 Metabolic encephalopathy; N39.0 Urinary tract infection, site not specified; I25.10 Atherosclerotic heart disease of native coronary artery without angina pectoris; K21.9 Gastro-esophageal reflux disease without esophagitis; F03.90 Unspecified dementia, unspecified severity, without behavioral disturbance, psychotic disturbance, mood disturbance, and anxiety; E87.5 Hyperkalemia; E78.5 Hyperlipidemia, unspecified; Z85.46 Personal history of malignant neoplasm of prostate; B95.2 Enterococcus as the cause of diseases classified elsewhere; I10 Essential (primary) hypertension; E11.9 Type 2 diabetes mellitus without complications; Z87.11 Personal history of peptic ulcer disease; D64.9 Anemia, unspecified; E86.1 Hypovolemia
CPT/HCPCS: 36415; 71045-TC; 80048-TC; 80061-TC; 80076-TC; 81000-TC; 82962-TC; 83690-TC; 83735-TC; 83935-TC; 84100-TC; 84300-TC; 84443-TC; 84484-TC; 84550-TC; 85025-TC; 85730-TC; 87081-TC; 87086-TC; 87186-TC; 97110-TC; 97116-TC; 97530-TC; A4216; G0378; J0290; J0696; J1650; J1815; J7030; J7060

== ENCOUNTER 2019-07-10 15:10 | Inpatient (IN) | payer MEDICARE, OTHER ==
[~2019-07-10] VITALS: Ht 162.6 cm; Wt 75.7 kg
[~2019-07-10 15:10] MED LIST changes: -AZIT250T13 PO; -MEMA10TA21 PO; +MEMA10TA56 PO
--- NOTE | 2019-07-10 15:13 | NUR ---
PT BIBRA FROM HOME C/O SOB STARTED LAST NIGHT, PT IS AAOX3, NOT IN RESPIRATORY DISTRESS ,HOOKED TO INSIDE SALES AGENT, KEPT RESTED AND COMFORTABLE, WILL CONTINUE TO MONITOR.
--- NOTE | 2019-07-10 15:16 | NUR ---
AT BEDSIDE FOR EVAL.
--- NOTE | 2019-07-10 15:35 | NUR ---
PT IV LINE ESTABLISHED, BLOOD DRAWN AND SENT TO LAB.
[2019-07-10 15:41] LABS: BASOPHILS # (AUTO) 0.1 /CMM (0.0-0.2); BASOPHILS % (AUTO) 0.7 % (0.0-2.0); EOSINOPHILS % (AUTO) 2.9 % (0.0-6.0); HEMATOCRIT 36 % (39-51); HEMOGLOBIN 12.1 g/dL (13.5-17.5); LYMPHOCYTES # (AUTO) 1.7 /CMM (0.8-4.8); LYMPHOCYTES % (AUTO) 18.2 % (20.0-44.0); MEAN CORPUSCULAR HGB CONC 34 g/dl (31.0-36.0); MEAN CORPUSCULAR VOLUME 99 fL (80-96); MONOCYTES # (AUTO) 0.6 /CMM (0.1-1.30); MONOCYTES % (AUTO) 6.6 % (2.0-12.0); NEUTROPHILS # (AUTO) 6.5 /CMM (1.8-8.9); NEUTROPHILS % (AUTO) 71.6 % (43.0-81.0); PLATELET COUNT (AUTO) 167 /CMM (150-450); RED BLOOD CELL COUNT(AUTO) 3.61 MIL/uL (4.5-6.0); WHITE BLOOD COUNT (AUTO) 9.1 K/uL (4.3-11.0)
[2019-07-10 15:50] LABS: CALCIUM, SERUM 9.3 mg/dL (8.5-10.1); CARBON DIOXIDE 26 mmol/L (21-32); CHLORIDE 90 mmol/L (98-107); CREATININE 0.8 mg/dL (0.6-1.3); GLUCOSE 108 mg/dL (74-106); POTASSIUM 4.3 mmol/L (3.5-5.1); SODIUM SERUM 124 mmol/L (136-145); UREA NITROGEN, BLOOD 11 mg/dL (7-18)
--- NOTE | 2019-07-10 15:50 | NUR ---
Kavin carrillo in [facility] - 07/10/19 at 1559 by XAVIER PT IS WHEELED TO CT SCAN VIA [facility].
--- NOTE | 2019-07-10 15:53 | NUR ---
PT IS WHEELED TO CT SCAN VIA [facility].
[2019-07-10 16:05] LABS: ALANINE AMINOTRANSFERASE 13 U/L (12-78); ALBUMIN 3.7 g/dL (3.4-5.0); ALKALINE PHOSPHATASE 76 U/L (46-116); ASPARTATE AMINOTRANSFERASE 21 U/L (15-37); B-TYPE NATRIURETIC PEPTIDE 141 PG/ML (0-125); BILIRUBIN,DIRECT 0.2 mg/dL (0.0-0.2); BILIRUBIN,TOTAL 0.8 mg/dL (0.2-1.0); TOTAL PROTEIN, SERUM 7.7 g/dL (6.4-8.2)
[2019-07-10] MEDS ORDERED: FERR325T24 PO (16:29)
[2019-07-10] MEDS ORDERED: DONE10TA44 PO (16:29)
[2019-07-10] MEDS ORDERED: PANT40TA4 PO (16:29)
[2019-07-10] MEDS ORDERED: ICOS1CAP PO (16:34)
[2019-07-10] MEDS ORDERED: ONDANSETRON HCL/PF 4 MG/2 ML VIAL ONE (16:55)
[2019-07-10] MEDS ORDERED: ONDANSETRON HCL/PF - ER 4 MG/2 ML VIAL IV ONE (17:00)
--- NOTE | 2019-07-10 17:02 | NUR ---
CALLED [facility], PAGED CINDI MARLEY
--- NOTE | 2019-07-10 17:14 | NUR ---
CALLED NURSING SUPP FOR TELE BED.
[2019-07-10] MEDS ORDERED: Z GUARD REMEDY 2 OZ OINT TP PRN (17:30)
[2019-07-10] MEDS ORDERED: MAGNESIUM HYDROXIDE 30 ML UDC PO PRN (17:30)
[2019-07-10] MEDS ORDERED: MAG HYDROX/AL HYDROX/SIMETH 30 ML UDC PO PRN (17:30)
[2019-07-10] MEDS ORDERED: ONDANSETRON HCL/PF 4 MG/2 ML VIAL IVP PRN (17:30)
[2019-07-10] MEDS ORDERED: ACETAMINOPHEN 325 MG TABLET PO PRN (17:30)
--- NOTE | 2019-07-10 17:39 | NUR ---
REPORT GIVEN TO CHIP GIFFORD FOR TAQUERIA.
[2019-07-10] MEDS ORDERED: Medication Not On Formulary EA (Icosapent Ethyl (Vascepa) 1 GM) PO SCH (18:00)
[2019-07-10] MEDS ORDERED: DEXTROSE 50%-WATER 50 ML DISP.SYRIN IV PRN (18:00)
[2019-07-10] MEDS: DONEPEZIL 5 MG TABLET PO SCH (18:26)
[2019-07-10] MEDS: IV NS 0.9% 1,000 ML IV PRN (18:26)
[2019-07-10] MEDS: FERROUS SULFATE (325 MG) 325 MG/TAB TABLET PO SCH (18:26)
[2019-07-10] MEDS: MIRTAZAPINE 15 MG TABLET PO SCH (18:26)
[2019-07-10] MEDS: ENOXAPARIN SODIUM 40 MG/0.4 ML DISP.SYRIN SQ SCH (18:28)
[2019-07-10 18:42] VITALS: BP 142/76
--- NOTE | 2019-07-10 19:10 | NUR ---
RN OPENING NOTES, RECEIEVED PT ON BED AWAKE OPEN EYES AND RESPONSE TO TOUCH AND BY NAME ORIENTED X1, CANNOT DETERMINE IF CONFUSED OR SLEEPY,ON RA @ 97% O2 SAT, ON TELE MONITOR READING SR 80'S, ON SEMI FOWLERS POSITION HAVE IV ON L AC #20 WITH ONGOING NS@ 75ML/HR SAFETY PRECAUTION MAINTAINED, BED ON LOWEST POSITION SIDE RAILS X3 CALL LIGHT WITHIN REACH WILL CONT. TO MONITOR THE PT
[2019-07-10] MEDS ORDERED: CEFEPIME 1 GM VIAL ONE (19:40)
[2019-07-10] MEDS: CEFEPIME 1 GM in IV D5W 50 ML IV SCH (19:51)
--- NOTE | 2019-07-10 19:51 | NUR ---
LABORER WOOD PRESERVING PLANT NOTES CEFEPIME 1GM WAS GIVEN LATE D/T NOT AVAILABLE. PHARMACY WAS AWARE. 1ST DOSE WAS PROVIDED BY CHARGE NURSE REZA SAUNDERS
[2019-07-10 20:00] VITALS: BP 143/75
--- NOTE | 2019-07-10 21:00 | NUR ---
RN NOTES REPORTED TO DR. ALONSO ABOUT THE CONCERN OF THE PATIENT THAT HE IS LOSING VOICE, THE SON CONFIRM IT THAT WHEN HE LEFT AT 1830 THE PT VOICE IS STILL NORMAL BUT RIGHT NOW HIS VOICE IS A BIT HUSKY AND LOSING, CHECK PT THROAT AND REDNESS WAS NOTED, DR. ALONSO ORDER LOZENGES PRN AND TO MONITOR FOR ANY CHANGES ON CONDITION NOTED AND CARRIED OUT
[2019-07-10] MEDS ORDERED: MENTHOL/CETYLPYRD (CEPACOL) 1 LOZ LOZENGE PO PRN (21:30)
[2019-07-10] MEDS: BLOOD SUGAR DIAGNOSTIC 1 EACH STRIP IN SCH (23:34)
[2019-07-10] MEDS: INSULIN REGULAR, HUMAN 100 UNIT/ML 3 ML VIAL SQ PRN (23:35)
[2019-07-11] VITALS (8 sets, daily range): BP systolic 99–159; BP diastolic 58–81
[2019-07-11 07:31] LABS: BASOPHILS % (AUTO) 0.3 % (0.0-2.0); EOSINOPHILS % (AUTO) 2.9 % (0.0-6.0); HEMATOCRIT 36 % (39-51); LYMPHOCYTES % (AUTO) 8.7 % (20.0-44.0); MEAN CORPUSCULAR HGB CONC 33 g/dl (31.0-36.0); MEAN CORPUSCULAR VOLUME 100 fL (80-96); MONOCYTES # (AUTO) 0.6 /CMM (0.1-1.30); MONOCYTES % (AUTO) 5.5 % (2.0-12.0); NEUTROPHILS # (AUTO) 9.7 /CMM (1.8-8.9); NEUTROPHILS % (AUTO) 82.6 % (43.0-81.0); PLATELET COUNT (AUTO) 164 /CMM (150-450); RED BLOOD CELL COUNT(AUTO) 3.65 MIL/uL (4.5-6.0); WHITE BLOOD COUNT (AUTO) 11.7 K/uL (4.3-11.0)
--- NOTE | 2019-07-11 07:35 | NUR ---
PET CARE ASSISTANT CLOSING NOTES PT ON GOOD CONDITION NO SIGN AND SYMPTOMS OF RESPIRATORY DISTRESS, NO PAIN NOTED, ON TELE MONITOR CURRENT READING OF SR 80'S, NO SOB NOTED ON RA @ 96-98% THRU OUT THE NIGHT, STILL FOR UA WITH CONDOM CATH IN PLACE AM NURSE AWARE, ALL NEEDS ATTENDED SAFETY MEASURE MAINTAINED BED ON LOWEST POSITION AND LOCK SIDE RAILS UP X2 CALL LIGHT WITHIN REACH WILL ENDORSE TO AM NURSE
[2019-07-11] MEDS: ALBUTEROL FS 2.5 MG/0.5 ML VIAL.NEB NEB SCH ×4 (07:43→19:30)
[2019-07-11] MEDS: IPRATROPIUM NEB FS 0.5 MG/2.5 ML AMPUL.NEB NEB SCH ×4 (07:43→19:30)
[2019-07-11 07:48] LABS: CALCIUM, SERUM 9.1 mg/dL (8.5-10.1); CREATININE 0.9 mg/dL (0.6-1.3); MAGNESIUM 1.8 mg/dL (1.8-2.4); PHOSPHORUS 3.4 mg/dL (2.5-4.9); POTASSIUM 4.3 mmol/L (3.5-5.1)
[2019-07-11] MEDS: BLOOD SUGAR DIAGNOSTIC 1 EACH STRIP IN SCH ×4 (07:51→22:26)
[2019-07-11] MEDS: PANTOPRAZOLE 40 MG TABLET.DR PO SCH (07:52)
[2019-07-11 08:04] LABS: THYROID STIMULATING HORMONE 1.015 uIU/mL (0.358-3.74); URIC ACID 4.2 mg/dL (2.6-7.2)
[2019-07-11] MEDS: INSULIN REGULAR, HUMAN 100 UNIT/ML 3 ML VIAL SQ PRN ×4 (08:16→22:32)
[2019-07-11] MEDS: IV NS 0.9% 1,000 ML IV PRN (08:27)
[2019-07-11] MEDS: NICOTINE PATCH (14MG) 14 MG PATCH.TD24 TD SCH (08:32)
[2019-07-11] MEDS: METFORMIN 500 MG TABLET PO SCH ×2 (08:32→16:12)
[2019-07-11] MEDS ORDERED: PANTOPRAZOLE 40 MG VIAL IV SCH (09:00)
[2019-07-11] MEDS ORDERED: methylPREDNISolone SOD SUCC 40 MG/ML VIAL IV SCH (09:00)
[2019-07-11 13:28] LABS: APPEARANCE,URINE CLEAR (CLEAR); BILIRUBIN,URINE NEGATIVE (NEGATIVE); BLOOD, URINE NEGATIVE Ery/uL (NEGATIVE); COLOR,URINE YELLOW (YELLOW); KETONES,URINE NEGATIVE (NEGATIVE); LEUKOCYTE ESTERASE ,URINE NEGATIVE (NEGATIVE); NITRITE, URINE NEGATIVE (NEGATIVE); PH,URINE 6.5 (5.0-8.0); PROTEIN,URINE NEGATIVE (NEGATIVE); UGLUCOSE NEGATIVE (NEGATIVE); UROBILINOGEN,URINE 0.2 EU/dL (0.2)
[2019-07-11 13:34] LABS: URINE SODIUM, RANDOM 79 mmol/l (40-220)
[2019-07-11 13:38] LABS: OSMOLALITY,URINE 244 mOS/kg (340-1090)
[2019-07-11] MEDS: XTANDI 40 MG PO SCH (16:13)
--- NOTE | 2019-07-11 17:58 | NUR ---
EARLY LEARNING TEACHER NOTES RECEIVED PATIENT FROM MARIANNE SAUNDERS FOR TAQUERIA.
[2019-07-11] MEDS: CEFEPIME 1 GM in IV D5W 50 ML IV SCH (17:59)
[2019-07-11] MEDS: MEMANTINE HCL 5 MG TABLET PO SCH (18:08)
[2019-07-11] MEDS: MIRTAZAPINE 15 MG TABLET PO SCH (18:08)
[2019-07-11] MEDS: DONEPEZIL 5 MG TABLET PO SCH (18:08)
[2019-07-11] MEDS: FERROUS SULFATE (325 MG) 325 MG/TAB TABLET PO SCH (18:09)
--- NOTE | 2019-07-11 19:17 | NUR ---
RN OPENING NOTE PT IN BED SITTING UP, NO SIGN AND SYMPTOMS OF RESPIRATORY DISTRESS, NO PAIN NOTED, ON TELE MONITOR CURRENT READING OF SR 80'S, NO SOB NOTED ON RA , SAFETY MEASURE IN PLACE, BED ON LOWEST POSITION AND LOCKED, SIDE RAILS UP X2 CALL LIGHT WITHIN REACH, WILL CONTINUE TO MONITOR
[2019-07-11] MEDS: ENOXAPARIN SODIUM 40 MG/0.4 ML DISP.SYRIN SQ SCH (21:20)
[2019-07-12] VITALS (8 sets, daily range): BP systolic 114–147; BP diastolic 58–76
[2019-07-12] MEDS: IV NS 0.9% 1,000 ML IV PRN (00:38)
--- NOTE | 2019-07-12 05:13 | NUR ---
RN NOTE PT REMOVED IV TO RIGHT HAND, PT REQUESTING DOES NOT WANT IV
[2019-07-12 07:20] LABS: BASOPHILS % (AUTO) 0.3 % (0.0-2.0); EOSINOPHILS % (AUTO) 1.2 % (0.0-6.0); HEMATOCRIT 29 % (39-51); HEMOGLOBIN 9.9 g/dL (13.5-17.5); LYMPHOCYTES # (AUTO) 1.6 /CMM (0.8-4.8); LYMPHOCYTES % (AUTO) 11.1 % (20.0-44.0); MEAN CORPUSCULAR HGB CONC 34 g/dl (31.0-36.0); MEAN CORPUSCULAR VOLUME 97 fL (80-96); MONOCYTES # (AUTO) 0.7 /CMM (0.1-1.30); MONOCYTES % (AUTO) 5.1 % (2.0-12.0); NEUTROPHILS # (AUTO) 11.9 /CMM (1.8-8.9); NEUTROPHILS % (AUTO) 82.3 % (43.0-81.0); PLATELET COUNT (AUTO) 170 /CMM (150-450); RED BLOOD CELL COUNT(AUTO) 3.01 MIL/uL (4.5-6.0); WHITE BLOOD COUNT (AUTO) 14.5 K/uL (4.3-11.0)
[2019-07-12] MEDS: BLOOD SUGAR DIAGNOSTIC 1 EACH STRIP IN SCH ×4 (07:30→21:19)
--- NOTE | 2019-07-12 07:35 | NUR ---
TELE/RN NOTE THE PATIENT IS RECEIVED IN BED. ALERT AND ORIENTED X2. RECEIVING OXYGEN AT 0.5 L/MIN VIA NASAL CANNULA. DENIES SOB. RESPIRATION REGULAR AND UNLABORED. DENIES PAIN. TELE BOX READING IS SR 85. LAC G 20 PATENT AND SALINE LOCKED. PATIENT IS ALSO NOTED NON-COMPLIANT WITH OXYGEN, HE FREQUENTLY REMOVED THE CANNULA DESPITE EXPLAINING RISKS AND BENEFITS MULTIPLE TIMES. BED LOW AND LOCKED. SIDE RAILS UP X3. CALL LIGHT WITHIN REACH. WILL CONTINUE TO MONITOR.
[2019-07-12 07:47] LABS: BAND % (MANUAL) 1 % (0.0-5.0); LYMPHOCYTES % (MANUAL) 11 % (16-48); MONOCYTES % (MANUAL) 7 % (0-11.0); MYELOCYTES % 1 % (0-0); NEUTROPHILS % (MANUAL) 80 (42-76)
[2019-07-12 07:49] LABS: BILIRUBIN,TOTAL 0.4 mg/dL (0.2-1.0); CALCIUM, SERUM 8.8 mg/dL (8.5-10.1); MAGNESIUM 1.9 mg/dL (1.8-2.4); PHOSPHORUS 2.9 mg/dL (2.5-4.9); POTASSIUM 4.1 mmol/L (3.5-5.1)
[2019-07-12] MEDS: PANTOPRAZOLE 40 MG TABLET.DR PO SCH (08:41)
[2019-07-12] MEDS: NICOTINE PATCH (14MG) 14 MG PATCH.TD24 TD SCH (08:41)
[2019-07-12] MEDS: METFORMIN 500 MG TABLET PO SCH ×2 (08:41→16:11)
[2019-07-12] MEDS: methylPREDNISolone SOD SUCC 40 MG/ML VIAL IV SCH (08:43)
[2019-07-12] MEDS: XTANDI 40 MG PO SCH (08:43)
[2019-07-12] MEDS: ALBUTEROL FS 2.5 MG/0.5 ML VIAL.NEB NEB SCH ×4 (08:44→20:05)
[2019-07-12] MEDS: IPRATROPIUM NEB FS 0.5 MG/2.5 ML AMPUL.NEB NEB SCH ×4 (08:44→20:05)
--- NOTE | 2019-07-12 10:06 | NUR ---
MS/RN NOTE RECEIVED ORDER FROM AYAKA PUENTE FOR PSYCH CONSULT FOR NON-COMPLIANCE. NOTED AND CARRIED OUT.
[2019-07-12] MEDS: INSULIN REGULAR, HUMAN 100 UNIT/ML 3 ML VIAL SQ PRN ×2 (12:41→21:44)
[2019-07-12] MEDS: FERROUS SULFATE (325 MG) 325 MG/TAB TABLET PO SCH (17:37)
[2019-07-12] MEDS: MEMANTINE HCL 5 MG TABLET PO SCH (17:37)
[2019-07-12] MEDS: MIRTAZAPINE 15 MG TABLET PO SCH (17:37)
[2019-07-12] MEDS: DONEPEZIL 5 MG TABLET PO SCH (17:37)
[2019-07-12] MEDS: CEFEPIME 1 GM in IV D5W 50 ML IV SCH (18:08)
--- NOTE | 2019-07-12 18:28 | NUR ---
MS/RN NOTE THE PATIENT IS ALERT AND ORIENTED X2. IN ROOM AIR AND DENIES SOB. RESPIRATION REGULAR AND UNLABORED. DENIES PAIN. THE PATIENT IS IN NO APPARENT DISTRESS. LAC G 20 PATENT AND SALINE LOCKED. THE PATIENT REMAINS NON-COMPLIANT WITH GETTING IV FLUIDS PER ORDER. BED LOW AND LOCKED. SIDE RAILS UP X3. CALL LIGHT WITHIN REACH. WILL ENDORSE TO VEGETABLE FARMER.
--- NOTE | 2019-07-12 19:00 | NUR ---
MS RN OPENING NOTES Received patient A/O x2, awake on Lemus's position on bed eating. Unable to comprehend/follow instructions to refrain LAC from bending to keep IV flowing. Patient refused to insert new IV line site. Patient denies any discomfort at this time. Kept on bed clean, dry and comfortable. Will continue to monitor accordingly.
[2019-07-12] MEDS: ENOXAPARIN SODIUM 40 MG/0.4 ML DISP.SYRIN SQ SCH (21:19)
--- NOTE | 2019-07-12 23:41 | NUR ---
MS SAUNDERS NOTES IV specialist Thor at bedside to assess the occluded KANG midline. HD catheter dressing needs reinforcement. Thor dressing the HD access. ANDREZ midline inserted, patient tolerated procedure well. Resumed IV meds as ordered. Addendum: 07/13/19 at 0625 by JESSICA BELLO RN WRONG ENTRY.
[2019-07-13 04:00] VITALS: BP 134/73
[2019-07-13] MEDS: IV NS 0.9% 1,000 ML IV PRN (05:25)
--- NOTE | 2019-07-13 06:24 | NUR ---
MS RN CLOSING NOTES Patient asleep on bed, easily awaken. On RA, no SOB/respiratory distress noted. Patient denies any discomfort at this time. Due meds given as ordered. All nursing needs attended. No new unusualities noted. Kept on bed clean, dry and comfortable. Call light within easy reach. On fall and aspiration precautions. Endorsed.
[2019-07-13 06:28] LABS: BASOPHILS % (AUTO) 0.3 % (0.0-2.0); EOSINOPHILS % (AUTO) 1.7 % (0.0-6.0); HEMATOCRIT 36 % (39-51); HEMOGLOBIN 11.9 g/dL (13.5-17.5); LYMPHOCYTES # (AUTO) 1.5 /CMM (0.8-4.8); LYMPHOCYTES % (AUTO) 12.6 % (20.0-44.0); MEAN CORPUSCULAR HGB CONC 33 g/dl (31.0-36.0); MEAN CORPUSCULAR VOLUME 100 fL (80-96); MONOCYTES # (AUTO) 0.8 /CMM (0.1-1.30); MONOCYTES % (AUTO) 6.3 % (2.0-12.0); NEUTROPHILS # (AUTO) 9.6 /CMM (1.8-8.9); NEUTROPHILS % (AUTO) 79.1 % (43.0-81.0); PLATELET COUNT (AUTO) 167 /CMM (150-450); RED BLOOD CELL COUNT(AUTO) 3.59 MIL/uL (4.5-6.0); WHITE BLOOD COUNT (AUTO) 12.1 K/uL (4.3-11.0)
[2019-07-13 06:47] LABS: CREATININE 1.1 mg/dL (0.6-1.3); MAGNESIUM 1.6 mg/dL (1.8-2.4); PHOSPHORUS 2.9 mg/dL (2.5-4.9); POTASSIUM 4.4 mmol/L (3.5-5.1)
[2019-07-13] MEDS: INSULIN REGULAR, HUMAN 100 UNIT/ML 3 ML VIAL SQ PRN ×2 (06:51→12:11)
[2019-07-13] MEDS: BLOOD SUGAR DIAGNOSTIC 1 EACH STRIP IN SCH ×4 (06:52→17:37)
[2019-07-13 07:18] LABS: IRON, SERUM 59 ug/dl (50-175); TOTAL IRON BINDING CAPACITY 253 ug/dl (250-450)
--- NOTE | 2019-07-13 07:21 | NUR ---
MS/RN OPENING NOTE Patient is resting in bed, A/O x2, showing no signs of acute distress or SOB, stable on RA. IV line in the RFA #22g is running NS @ 75ml/hr. IV line in the LAC #20g s/l is clean and intact. Patient has no complaints of pain at this time. Bed is in lowest position, side rails x3 in upright position, fall, safety, and aspiration precautions enforced. Will continue with plan of care.
[2019-07-13] MEDS: IPRATROPIUM NEB FS 0.5 MG/2.5 ML AMPUL.NEB NEB SCH ×3 (07:35→15:30)
[2019-07-13] MEDS: ALBUTEROL FS 2.5 MG/0.5 ML VIAL.NEB NEB SCH ×3 (07:35→15:30)
[2019-07-13 08:00] VITALS: BP 115/70
[2019-07-13 08:03] LABS: FERRITIN 71 ng/mL (8-388)
[2019-07-13] MEDS: PANTOPRAZOLE 40 MG TABLET.DR PO SCH (08:18)
[2019-07-13] MEDS: METFORMIN 500 MG TABLET PO SCH ×3 (08:18→17:37)
[2019-07-13] MEDS: XTANDI 40 MG PO SCH (08:18)
[2019-07-13] MEDS: methylPREDNISolone SOD SUCC 40 MG/ML VIAL IV SCH (08:18)
[2019-07-13] MEDS: NICOTINE PATCH (14MG) 14 MG PATCH.TD24 TD SCH (08:18)
[2019-07-13 08:26] VITALS: BP 115/80
[2019-07-13] MEDS: Magnesium 1GM/D5W 100ML PREMIX 100 ML IV SCH ×2 (10:22→12:34)
[2019-07-13] MEDS ORDERED: Magnesium 1GM/D5W 100ML PREMIX 100 ML IV SCH (11:17)
[2019-07-13 16:00] VITALS: BP 127/67
[2019-07-13] MEDS: DONEPEZIL 5 MG TABLET PO SCH ×2 (17:34→17:42)
[2019-07-13] MEDS: FERROUS SULFATE (325 MG) 325 MG/TAB TABLET PO SCH ×2 (17:34→17:42)
[2019-07-13] MEDS: MIRTAZAPINE 15 MG TABLET PO SCH ×2 (17:35→17:43)
[2019-07-13] MEDS: MEMANTINE HCL 5 MG TABLET PO SCH ×2 (17:37→17:42)
[2019-07-13] MEDS: CEFEPIME 1 GM in IV D5W 50 ML IV SCH (17:43)
[2019-07-13] MEDS ORDERED: ALBU2.5V13 NEB (18:12)
[2019-07-13] MEDS ORDERED: IPRA0.2S9 NEB (18:12)
[2019-07-13] MEDS ORDERED: CEFE1VIA10 IV (18:12)
[2019-07-13] MEDS ORDERED: METH4TAB17 PO (18:12)
[2019-07-13] MEDS ORDERED: NICO-676 TD (18:12)
--- NOTE | 2019-07-13 18:50 | NUR ---
MS/RN NOTE Patient is medically stable for discharge, VS WNL, A/O x2, with periods of confusion. All patient needs met, all due meds given. Patient refused skin assessment. IV line in the LAC removed. IV line in the RFA #22g is leaving with patient for IV abx to be continued at SNF, oer order, RN at [facility] aware. ID band removed. Report given to Deanne at [facility]. Patient left with EMS en route to [facility]. Family is aware of DC.
== END 2019-07-13 18:50 | DRG 202 ==
LOC: ER 15:20 → TELE 17:31 → TELE1 18:08 → MEDSG1 07-12 11:17
PROVIDERS: ADMIT Registered Nurse; ATTEND Nurse Practitioner Acute Care
DX: J20.9 Acute bronchitis, unspecified (principal); J98.11 Atelectasis; J84.9 Interstitial pulmonary disease, unspecified; J44.0 Chronic obstructive pulmonary disease with (acute) lower respiratory infection; E87.1 Hypo-osmolality and hyponatremia; D63.8 Anemia in other chronic diseases classified elsewhere; I25.10 Atherosclerotic heart disease of native coronary artery without angina pectoris; I10 Essential (primary) hypertension; E11.9 Type 2 diabetes mellitus without complications; E66.9 Obesity, unspecified; E78.5 Hyperlipidemia, unspecified; F03.90 Unspecified dementia, unspecified severity, without behavioral disturbance, psychotic disturbance, mood disturbance, and anxiety; Z91.81 History of falling; Z87.891 Personal history of nicotine dependence; E86.1 Hypovolemia; Z68.28 Body mass index [BMI] 28.0-28.9, adult; R55 Syncope and collapse; Z85.46 Personal history of malignant neoplasm of prostate; Z85.118 Personal history of other malignant neoplasm of bronchus and lung; E83.42 Hypomagnesemia; F32.9 Major depressive disorder, single episode, unspecified; Z79.84 Long term (current) use of oral hypoglycemic drugs; Z87.11 Personal history of peptic ulcer disease; W19.XXXA Unspecified fall, initial encounter; Y93.9 Activity, unspecified; Y92.009 Unspecified place in unspecified non-institutional (private) residence as the place of occurrence of the external cause; Z87.820 Personal history of traumatic brain injury
CPT/HCPCS: 36415; 70450-TC; 71045-TC; 71250-TC; 80048-TC; 80053-TC; 80061-TC; 80076-TC; 81000-TC; 82728-TC; 82962-TC; 83540-TC; 83735-TC; 83880; 83935-TC; 84100-TC; 84300-TC; 84443-TC; 84484-TC; 84550-TC; 85025-TC; 85730-TC; 87081-TC; 87086-TC; 92611-TC; 93307-TC; 93880-TC; 97116-TC; 97530-TC; A4349; G0378; J0692; J1650; J1815; J2405; J2920; J3475; J7030; J7060

== ENCOUNTER 2019-11-17 09:35 | Emergency (ER) | payer MEDICARE, OTHER ==
[~2019-11-17] VITALS: Ht 165.1 cm; Wt 78.0 kg
[~2019-11-17 09:35] MED LIST changes: +ALBU2.5V13 NEB; +CEFE1VIA10 IV; +DONE10TA44 PO; +FERR325T24 PO; +ICOS1CAP PO; +IPRA0.2S9 NEB; +METH4TAB17 PO; +NICO-676 TD; +PANT40TA4 PO
--- NOTE | 2019-11-17 09:45 | NUR ---
PT KALINA LAMBERT FROM SNF. PRESENTS W/ A FOREHEAD ABRASION S/P HITTING HIS HEAD WHILE BEING ASSISTED BY CAREGIVER. NO KO ENDORSED. PT IS AWAKE VERBALLY RESPONSIVE. FARSI SPEAKING BUT ABLE TO FOLLOW COMMANDS. STABLE VITALS. AWAITING MD SIMONS.
--- NOTE | 2019-11-17 09:47 | NUR ---
DR THURSTON AT BEDSIDE FOR EVAL.
--- NOTE | 2019-11-17 10:05 | NUR ---
PT PROVIDED W/WOUND CARE TO FOREHEAD ABRASION.
--- NOTE | 2019-11-17 10:16 | NUR ---
PT TO RADIOLOGY FOR HEAD AND C SPINE CT SCAN VIA [facility].
[2019-11-17] MEDS ORDERED: IPRA0.2S49 IH (10:20)
[2019-11-17] MEDS ORDERED: ASCO500C16 PO (10:20)
[2019-11-17] MEDS ORDERED: ALBU2.5V13 IH (10:20)
[2019-11-17] MEDS ORDERED: MAGN400O6 PO (10:20)
[2019-11-17] MEDS ORDERED: NA P133E RC (10:20)
[2019-11-17] MEDS ORDERED: DOCU-141 PO (10:20)
[2019-11-17] MEDS ORDERED: DONE5TAB34 PO (10:20)
[2019-11-17] MEDS ORDERED: ENZALUTAMIDE PO (10:20)
[2019-11-17] MEDS ORDERED: MULT-439 PO (10:20)
[2019-11-17] MEDS ORDERED: ACET325T53 PO (10:20)
[2019-11-17] MEDS ORDERED: SENN-261 PO (10:20)
[2019-11-17] MEDS ORDERED: BISA10SU61 RC (10:20)
--- NOTE | 2019-11-17 11:45 | NUR ---
CALLED TRANSPORT ETA [address] TRIP NUMBER IS: [id number]
[2019-11-17] MEDS ORDERED: ACETAMINOPHEN ES 500 MG TABLET ONE (12:41)
[2019-11-17] MEDS ORDERED: ACETAMINOPHEN ES 500 MG TABLET PO ONE (13:00)
--- NOTE | 2019-11-17 13:58 | NUR ---
CALLED SNF FOR REPORT. PT DISCHARGE VIA [facility]IVATE [facility]ANCE IN STABLE CONDITION.
[2019-11-17 13:59] VITALS: BP 108/75
== END 2019-11-17 14:00 | disposition home or self-care (01) ==
LOC: ER 09:42
DX: S01.81XA Laceration without foreign body of other part of head, initial encounter (principal); R51 Headache; F03.90 Unspecified dementia, unspecified severity, without behavioral disturbance, psychotic disturbance, mood disturbance, and anxiety; I10 Essential (primary) hypertension; E11.9 Type 2 diabetes mellitus without complications; Z85.46 Personal history of malignant neoplasm of prostate; Z90.49 Acquired absence of other specified parts of digestive tract; Z98.890 Other specified postprocedural states; Z79.899 Other long term (current) drug therapy; W18.09XA Striking against other object with subsequent fall, initial encounter; Y93.89 Activity, other specified; Y92.89 Other specified places as the place of occurrence of the external cause; Y99.8 Other external cause status
CPT/HCPCS: 70450-TC; 72125-TC

== ENCOUNTER 2020-03-28 16:48 | Inpatient (IN) | payer MEDICARE, OTHER ==
[~2020-03-28] VITALS: Ht 165.1 cm; Wt 78.6 kg
[~2020-03-28 16:48] MED LIST changes: +ACET325T53 PO; +ALBU2.5V13 IH; -ALBU2.5V13 NEB; +ASCO500C17 PO; +BISA10SU61 RC; -CEFE1VIA10 IV; +DOCU-141 PO; -DONE10TA44 PO; +DONE5TAB34 PO; +IPRA0.2S49 IH; -IPRA0.2S9 NEB; +MAGN400O6 PO; -METH4TAB17 PO; -MIRT30TA7 PO; +MULT-439 PO; +NA P133E RC; -NICO-676 TD; -PANT40TA4 PO; +PANT40TA49 PO; +SENN-261 PO
[2020-03-28] MEDS ORDERED: CHOL100045 PO (17:24)
[2020-03-28] MEDS ORDERED: ASCO-352 PO (17:24)
[2020-03-28] MEDS ORDERED: ZINC220C6 PO (17:24)
[2020-03-28] MEDS ORDERED: NUT.237L70 PO (17:24)
[2020-03-28] MEDS ORDERED: LACT-58 PO (17:24)
[2020-03-28] MEDS ORDERED: IV NS 0.9% 500 ML BAG IV ONE ×2 (17:30→20:00)
[2020-03-28 17:49] LABS: BASOPHILS # (AUTO) 0.1 /CMM (0.0-0.2); BASOPHILS % (AUTO) 0.8 % (0.0-2.0); EOSINOPHILS % (AUTO) 1.5 % (0.0-6.0); HEMATOCRIT 34 % (39-51); HEMOGLOBIN 11.1 g/dL (13.5-17.5); LYMPHOCYTES # (AUTO) 1.2 /CMM (0.8-4.8); MEAN CORPUSCULAR HGB CONC 33 g/dl (31.0-36.0); MEAN CORPUSCULAR VOLUME 93 fL (80-96); MONOCYTES # (AUTO) 0.5 /CMM (0.1-1.30); MONOCYTES % (AUTO) 4.6 % (2.0-12.0); NEUTROPHILS # (AUTO) 8.8 /CMM (1.8-8.9); NEUTROPHILS % (AUTO) 82.1 % (43.0-81.0); PLATELET COUNT (AUTO) 273 /CMM (150-450); RED BLOOD CELL COUNT(AUTO) 3.61 MIL/uL (4.5-6.0); WHITE BLOOD COUNT (AUTO) 10.7 K/uL (4.3-11.0)
--- NOTE | 2020-03-28 18:00 | NUR ---
KALINA PA FROM [facility] INTAKE LAST COVID TEST DONE 03/15/20=(+). PT CONFUSED, RR EVEN & UNLABORED. PLACED ON MIXER TENDER, SR. O2 SAT 100% RA. RR EVEN & UNLABORED. PT SEEN & EVAL'D BY DR. CARRION. WILL CONT TO MONITOR.
[2020-03-28 18:23] LABS: CALCIUM, SERUM 9.6 mg/dL (8.5-10.1); CARBON DIOXIDE 25 mmol/L (21-32); CHLORIDE 99 mmol/L (98-107); GLUCOSE 107 mg/dL (74-106); POTASSIUM 3.8 mmol/L (3.5-5.1); SODIUM SERUM 134 mmol/L (136-145); UREA NITROGEN, BLOOD 30 mg/dL (7-18)
[2020-03-28 18:27] LABS: ALANINE AMINOTRANSFERASE 40 U/L (12-78); ALBUMIN 2.7 g/dL (3.4-5.0); ALKALINE PHOSPHATASE 101 U/L (46-116); ASPARTATE AMINOTRANSFERASE 45 U/L (15-37); BILIRUBIN,DIRECT 0.2 mg/dL (0.0-0.2); BILIRUBIN,TOTAL 0.5 mg/dL (0.2-1.0); TOTAL PROTEIN, SERUM 8.3 g/dL (6.4-8.2)
[2020-03-28 19:10] LABS: BILIRUBIN,URINE Negative (NEGATIVE); BLOOD, URINE Negative Ery/uL (NEGATIVE); COLOR,URINE YELLOW (YELLOW); LEUKOCYTE ESTERASE ,URINE Trace (NEGATIVE); NITRITE, URINE Negative (NEGATIVE); PH,URINE 5.5 (5.0-8.0); PROTEIN,URINE Negative (NEGATIVE); UGLUCOSE Negative (NEGATIVE)
[2020-03-28 19:19] LABS: BACTERIA,URINE Few /HPF (None Seen); RBC,URINE NONE SEEN /HPF (0-2); SQUAMOUS EPITHELIAL CELL,UR Few /HPF (None Seen)
--- NOTE | 2020-03-28 21:29 | NUR ---
REPORT GIVEN TO [facility] FOR TAQU[place]. PT STABLE, RR EVEN & UNALBORED. NAD NOTED @ THIS TIME.
[2020-03-28] MEDS ORDERED: MAGNESIUM HYDROXIDE 30 ML UDC PO PRN (21:30)
[2020-03-28] MEDS ORDERED: ZOLPIDEM TARTRATE 5 MG TABLET PO PRN (21:30)
[2020-03-28] MEDS ORDERED: ONDANSETRON HCL/PF 4 MG/2 ML VIAL IVP PRN (21:30)
[2020-03-28] MEDS ORDERED: HYDROCODONE/APAP 5/325MG TABLET PO PRN (21:30)
[2020-03-28] MEDS ORDERED: MAG HYDROX/AL HYDROX/SIMETH 30 ML UDC PO PRN (21:30)
[2020-03-28] MEDS ORDERED: Z GUARD REMEDY 2 OZ OINT TP PRN (21:30)
[2020-03-28] MEDS ORDERED: DEXTROSE 50%-WATER 50 ML DISP.SYRIN IV PRN (21:30)
[2020-03-28] MEDS ORDERED: ACETAMINOPHEN 325 MG TABLET PO PRN (21:30)
[2020-03-28 22:00] VITALS: BP 133/71
[2020-03-28 22:09] VITALS: BP 133/71
--- NOTE | 2020-03-28 22:10 | NUR ---
RN ADMITTING NOTES PATIENT RECEIVED VIA GURNEY ACCOMPANIED BY ER STAFF. A/O X 1, CONFUSED, REMOVING LINES. POOR HISTORIAN. STABLE ON RA WITH BREATHING EVEN AND UNLABORED, NO SOB NOTED. NO SIGNS OF ACUTE DISTRESS. NO SIGNS OF PAIN OR DISCOMFORT AT THE MOMENT. IV LOCATED ON L WRIST #20 SL, INTACT AND PATENT. TELE MONITORS PLACED. ALL BELONGINGS ACCOUNTED FOR. VITALS TAKEN. SKIN ASSESSMENT DONE. FALL PRECAUTIONS IN PLACE. SAFETY PRECAUTIONS IN PLACE WITH BED IN LOWEST POSITION, CALL LIGHT WITHIN REACH, BREAKS ON, SIDE RAILS UP. WILL CONTINUE TO MONITOR THROUGHOUT THE NIGHT.
[2020-03-28] MEDS: IV D5/0.45 NACL 1,000 ML IV PRN (22:16)
[2020-03-28] MEDS: ENOXAPARIN SODIUM 40 MG/0.4 ML DISP.SYRIN SQ SCH (22:17)
[2020-03-28] MEDS: BLOOD SUGAR DIAGNOSTIC 1 EACH STRIP IN SCH (22:42)
--- NOTE | 2020-03-28 23:57 | NUR ---
RN NOTES PATIENT REMOVED IV, REMOVING TELE BOX, BEING NON-COMPLIANT. PREVIOUSLY REMOVED IV LINES TWICE IN ER. NOTIFIED MD FISHER, ORDERED BILATERAL SOFT WRIST RESTRAINTS. RESTRAINTS APPLIED. WILL CONTINUE TO MONITOR IF THEY CAN BE REMOVED.
[2020-03-29] VITALS: BP 100/55
[2020-03-29 04:00] VITALS: BP 126/68
[2020-03-29] MEDS: BLOOD SUGAR DIAGNOSTIC 1 EACH STRIP IN SCH ×5 (06:32→21:12)
[2020-03-29] MEDS: INSULIN REGULAR, HUMAN 100 UNIT/ML 3 ML VIAL SQ PRN ×2 (06:33→17:35)
--- NOTE | 2020-03-29 06:40 | NUR ---
RN CLOSING NOTES PATIENT RESTING IN BED, A/O X 1, CONFUSED. ON RA WITH BREATHING EVEN AND UNLABORED, NO SOB NOTED. NO SIGNS OF ACUTE DISTRESS. NO SIGNS OF PAIN OR DISCOMFORT AT THE MOMENT. TELE MONITOR READING SR. IV LOCATED ON R WRIST #20 RUNNING D51/2 NS @ 75 ML/HR. BILATERAL SOFT WRIST RESTRAINTS IN PLACE WITH SKIN INTACT, NO REDNESS, PULSE PRESENT. PATIENT KEPT CLEAN AND DRY THROUGHOUT THE NIGHT, ALL NEEDS ATTENDED TO. WILL ENDORSE TO ONCOMING SHIFT ABOUT TAQU[place]IA.
[2020-03-29 06:44] LABS: BASOPHILS % (AUTO) 0.3 % (0.0-2.0); EOSINOPHILS % (AUTO) 0.8 % (0.0-6.0); HEMATOCRIT 29 % (39-51); HEMOGLOBIN 9.6 g/dL (13.5-17.5); LYMPHOCYTES # (AUTO) 0.8 /CMM (0.8-4.8); LYMPHOCYTES % (AUTO) 8.4 % (20.0-44.0); MEAN CORPUSCULAR HGB CONC 33 g/dl (31.0-36.0); MEAN CORPUSCULAR VOLUME 93 fL (80-96); MONOCYTES # (AUTO) 0.4 /CMM (0.1-1.30); MONOCYTES % (AUTO) 3.7 % (2.0-12.0); NEUTROPHILS # (AUTO) 8.7 /CMM (1.8-8.9); NEUTROPHILS % (AUTO) 86.8 % (43.0-81.0); PLATELET COUNT (AUTO) 233 /CMM (150-450); RED BLOOD CELL COUNT(AUTO) 3.11 MIL/uL (4.5-6.0)
[2020-03-29 07:05] LABS: CALCIUM, SERUM 9.1 mg/dL (8.5-10.1); CREATININE 0.8 mg/dL (0.6-1.3); MAGNESIUM 1.7 mg/dL (1.8-2.4); PHOSPHORUS 2.4 mg/dL (2.5-4.9); POTASSIUM 3.5 mmol/L (3.5-5.1)
--- NOTE | 2020-03-29 07:14 | NUR ---
TELE/RN OPENING NOTES RECEIVED PATIENT ON BED. PATIENT NO SIGN AND SYMPTOM OF NOTED AT THIS TIME. PATIENT IN NO APPARENT RESPIRATORY DISTRESS NOTED. ON TELE MONITOR READING SINUS RHYTHM 80 BPM. WILL CONTINUE TO MONITOR.
[2020-03-29 07:18] LABS: THYROID STIMULATING HORMONE 0.498 uIU/mL (0.358-3.74)
[2020-03-29] MEDS ORDERED: PANTOPRAZOLE 40 MG TABLET.DR PO SCH (07:30)
[2020-03-29] MEDS: FAMOTIDINE/PF INJ 20 MG/2 ML VIAL IV SCH ×2 (08:30→20:59)
[2020-03-29 08:36] LABS: LYMPHOCYTES % (MANUAL) 7 % (16-48); MONOCYTES % (MANUAL) 5 % (0-11.0); NEUTROPHILS % (MANUAL) 88 (42-76)
[2020-03-29] MEDS ORDERED: PANTOPRAZOLE 40 MG VIAL IV SCH (09:00)
[2020-03-29] MEDS: Magnesium 1GM/D5W 100ML PREMIX 100 ML IV SCH ×2 (10:59→12:22)
[2020-03-29] MEDS ORDERED: K PHOS NEUTRAL 250 MG TABLET PO ONE (12:30)
[2020-03-29] MEDS: IV D5/0.45 NACL 1,000 ML IV PRN (13:06)
[2020-03-29] MEDS ORDERED: INSULIN GLARGINE, 100 UNIT/ML CARTRIDGE SQ SCH (17:30)
--- NOTE | 2020-03-29 19:31 | NUR ---
TELE/RN CLOSING NOTES PATIENT ALERT AND ORIENTED X1. NO SIGN AND SYMPTOM OF PAIN NOTED. PATIENT IN NO APPARENT RESPIRATORY DISTRESS NOTED. SEEN AND EXAMINED BY MD WITH ORDER MADE AND CARRIED OUT. ALL DUE MEDICATION WAS IN PLACED. TELE MONITOR READING SR 81BPM. SAFETY PRECAUTIONS WAS IN PLACED. BED IN LOWEST POSITION AND LOCKED. CALL LIGHT WITH IN REACH. WILL ENDORSED TO HAM PUMPER FOR TAQU[place]IA.
--- NOTE | 2020-03-29 19:35 | NUR ---
RN NOTES RECEIVED PT. AWAKE ON BED, A/OX1, CONFUSED, SERBIAN SPEAKING, PT IS NAKED AND WAS ON BILATERAL SOFT WRIST RESTRAINTS, CHECKED PT. BILATERAL UPPER ARM CIRCULATION, NOT IN DISTRESS, NMO PAIN NOTED, CALL LIGHT WITHIN REACH, [id number], CONTINUE TO MONITOR
[2020-03-29] MEDS: ENOXAPARIN SODIUM 40 MG/0.4 ML DISP.SYRIN SQ SCH (20:58)
[2020-03-30] VITALS: BP 108/61
[2020-03-30] MEDS: IV D5/0.45 NACL 1,000 ML IV PRN ×2 (01:12→23:01)
[2020-03-30 04:00] VITALS: BP 95/57
--- NOTE | 2020-03-30 06:31 | NUR ---
RN NOTES AWAKE, MORNING CARE RENDERED, NOT IN DISTRESS, NO PAIN NOTED, CALL LIGHT WITHIN REACH, [id number], PT. NEEDS ATTENDED
[2020-03-30] MEDS: INSULIN REGULAR, HUMAN 100 UNIT/ML 3 ML VIAL SQ PRN (06:45)
[2020-03-30] MEDS: BLOOD SUGAR DIAGNOSTIC 1 EACH STRIP IN SCH ×4 (07:30→23:01)
[2020-03-30 08:00] VITALS: BP 124/87
[2020-03-30] MEDS: FAMOTIDINE/PF INJ 20 MG/2 ML VIAL IV SCH ×2 (09:29→21:47)
[2020-03-30 10:08] LABS: MAGNESIUM 1.9 mg/dL (1.8-2.4); PHOSPHORUS 3.2 mg/dL (2.5-4.9)
[2020-03-30 16:00] VITALS: BP 124/80
--- NOTE | 2020-03-30 16:00 | NUR ---
BEAD FLIPPER NOTES PATIENT NOTED TRYING TO GET OUT OF THE BED, PULLING OUT IV LINE. PATIENT PLACED BACK ON RESTRAINTS TEMPORALLY.
--- NOTE | 2020-03-30 18:24 | NUR ---
MS RN NOTES PATIENT IN BED RESTING NO SOB OR ACUTE DISTRESS NOTED. ALL DUE MEDICATIONS ADMINISTERED. ALL NEEDS MET. NO ACUTE CHANGES NOTED DURING AM SHIFT. WILL ENDORSE CARE TO PM SHIFT.
--- NOTE | 2020-03-30 19:30 | NUR ---
TELE/RN OPENING NOTES RECEIVED PATIENT IN BED RESTING. PATIENT IS ALERT AND ORIENTED X 1. NO SIGNS OF SOB OR RESPIRATORY DISTRESS NOTED. PATIENT TELE READING SR. PATIENT HAS IV ACCESS ON RIGHT HAND RUNNING NS AT 75 ML/HR. NO DISTRESS NOTED. SOFT WRIST RESTRAINT BILATERAL REMOVED FOR BREAK TIME OFF, CIRCULATION IS GOOD. SAFETY MEASURES ARE IN PLACE, BED IS LOCKED AND PLACED IN THE LOW POSITION, SIDE RAILS UP X 3, BED ALARM ON. CALL LIGHT IS WITHIN REACH. WILL MONITOR THROUGH OUT SHIFT.
[2020-03-30 20:00] VITALS: BP 110/63
[2020-03-30 20:02] VITALS: BP 110/63
[2020-03-30] MEDS: ENOXAPARIN SODIUM 40 MG/0.4 ML DISP.SYRIN SQ SCH (21:49)
[2020-03-31] VITALS (8 sets, daily range): BP systolic 107–127; BP diastolic 60–74
[2020-03-31 06:50] LABS: BASOPHILS % (AUTO) 0.4 % (0.0-2.0); EOSINOPHILS % (AUTO) 2.7 % (0.0-6.0); HEMATOCRIT 32 % (39-51); HEMOGLOBIN 9.9 g/dL (13.5-17.5); LYMPHOCYTES % (AUTO) 16.7 % (20.0-44.0); MEAN CORPUSCULAR HGB CONC 31 g/dl (31.0-36.0); MEAN CORPUSCULAR VOLUME 98 fL (80-96); MONOCYTES # (AUTO) 0.4 /CMM (0.1-1.30); MONOCYTES % (AUTO) 6.1 % (2.0-12.0); NEUTROPHILS # (AUTO) 4.5 /CMM (1.8-8.9); NEUTROPHILS % (AUTO) 74.1 % (43.0-81.0); PLATELET COUNT (AUTO) 223 /CMM (150-450); RED BLOOD CELL COUNT(AUTO) 3.23 MIL/uL (4.5-6.0); WHITE BLOOD COUNT (AUTO) 6.1 K/uL (4.3-11.0)
--- NOTE | 2020-03-31 06:50 | NUR ---
TELE/RN CLOSING NOTES PATIENT IN BED RESTING. PATIENT IS ALERT AND ORIENTED X 1. NO SIGNS OF SOB OR RESPIRATORY DISTRESS NOTED. PATIENT TELE READING SR 79. PATIENT HAS IV ACCESS ON LEFT FA #22G RUNNING NS AT 75 ML/HR, AND IV ON RIGHT HAND #24G SL. NO DISTRESS NOTED. SOFT WRIST RESTRAINT BILATERAL IN PLACE, CIRCULATION IS GOOD. ALL NEEDS MET DURING SHIFT. SAFETY MEASURES ARE IN PLACE, BED IS LOCKED AND PLACED IN THE LOW POSITION, SIDE RAILS UP X 3, BED ALARM ON. CALL LIGHT IS WITHIN REACH. WILL ENDORSE TO DAY SHIFT.
[2020-03-31 07:11] LABS: CREATININE 0.8 mg/dL (0.6-1.3); MAGNESIUM 1.9 mg/dL (1.8-2.4); POTASSIUM 3.9 mmol/L (3.5-5.1)
[2020-03-31] MEDS: BLOOD SUGAR DIAGNOSTIC 1 EACH STRIP IN SCH ×4 (07:46→22:10)
--- NOTE | 2020-03-31 07:50 | NUR ---
RN Opening note Received patient in bed AO x 1 confuse, able to responds all stimuli. Skin is warm to touch, keep clean/dry, intact IV site on left FA with 22g. Respiratory even and unlabored on room air. Kept locked bed with elevated HOB for ensure airway and lowest position for safety. Call light within reach and bed alarm on at all times. Call light within reach, will continue to monitor.
[2020-03-31] MEDS: FAMOTIDINE/PF INJ 20 MG/2 ML VIAL IV SCH ×2 (08:37→21:41)
[2020-03-31] MEDS: INSULIN REGULAR, HUMAN 100 UNIT/ML 3 ML VIAL SQ PRN ×3 (08:38→22:31)
--- NOTE | 2020-03-31 09:46 | NUR ---
Patient noticed few bacteria from urine, informed MD regarding above.
[2020-03-31 11:41] LABS: LYMPHOCYTES % (MANUAL) 12 % (16-48); MONOCYTES % (MANUAL) 7 % (0-11.0); NEUTROPHILS % (MANUAL) 81 (42-76)
--- NOTE | 2020-03-31 18:00 | NUR ---
RN Closing note Patient in bed resting comfortably, dos no c/o pain or any discomfort. Skin is warm to touch keep clean/dry, given skin care. Respiratory even and unlabored on room air O2sat 98%, no cough sob observed. Patient confused pulled out vp analytics and IV line, keep on monitor soft restraint. Kept locked bed and elevated HOB for aspiration precaution, also lowest position for safety. Call light within reach, will endorse material handler 1st shift.
[2020-03-31] MEDS: IV D5/0.45 NACL 1,000 ML IV PRN (18:09)
--- NOTE | 2020-03-31 19:25 | NUR ---
RN NOTE RECEIVED PATIENT IN BED RESTING WITH HOB ELEVATED. PATIENT IS ALERT AND ORIENTED X 1. FULL CODE STATUS. ON ISOLATION FOR POSITIVE FOR COVID-19. PATIENT IS VERBALLY RESPONSIVE. BREATHING IS EVEN AND UNLABORED. NO SOB NOTED AT THIS TIME. O2 SAT IS 96% ON ROOM AIR. IV SITE ON LEFT FOREARM IS CLEAN, DRY, AND PATENT. IV HYDRATION D5 1/2 NS IS RUNNING AT 75 ML/HR. SKIN IS INTACT. PATIENT IS ON BILATERAL SOFT WRIST RESTRAINTS FOR PULLING OUT LINES PER AM SHIFT REPORT. PATIENT IS ON BED REST. PATIENT IS INCONTINENT OF BOWEL AND BLADDER. IN NO APPARENT DISTRESS NOTED AT THIS TIME. CALL LIGHT IS WITHIN EASY REACH. WILL CONTINUE TO MONITOR.
[2020-03-31] MEDS: ENOXAPARIN SODIUM 40 MG/0.4 ML DISP.SYRIN SQ SCH (21:43)
[2020-04-01] VITALS: BP 105/70
[2020-04-01 04:00] VITALS: BP 120/61
[2020-04-01] MEDS: IV D5/0.45 NACL 1,000 ML IV PRN ×2 (05:43→17:07)
--- NOTE | 2020-04-01 07:00 | NUR ---
RN NOTE PATIENT REMAINED STABLE THROUGHOUT THE NIGHT. NO SIGNIFICANT CHANGES NOTED. ON BILATERAL SOFT WRIST RESTRAINTS. PATIENT STILL TRIES TO PULL OUT IV LINES. PATIENT IS KEPT CLEAN, DRY, AND COMFORTABLE. REPOSITIONED Q2H. DUE MEDS GIVEN ORDERED AND TOLERATED WELL. WILL ENDORSE TO AM SHIFT RN FOR CONTINUATION OF CARE.
[2020-04-01] MEDS: BLOOD SUGAR DIAGNOSTIC 1 EACH STRIP IN SCH ×4 (07:14→21:34)
--- NOTE | 2020-04-01 07:25 | NUR ---
TEST ENGINEER NOTES PATIENT RECEIVED IN BED, ALERT AND ORIENTED X 1, FARSI SPEAKING. PATIENT ON ROOM AIR WITH NO SIGNS OF RESPIRATORY DISTRESS AT THIS TIME. ON GOVERNMENT OPERATIONS CONSULTANT, SINUS RHYTHM 87. PATIENT SKIN WARM AND DRY TO TOUCH, IV ACCESS INTACT AND PATENT, INFUSING D51/2 NS AT 75 ml/hr. PATIENT HAS BILATERAL SOFT WRIST RESTRAINTS IN PLACE WITH ADEQUATE SKIN CIRCULATION, AND Q 15 MINS VISUAL CHECKS DONE. PATIENT PRESENTS WITH NO PAIN OR DISCOMFORT AT THIS TIME. SAFETY PRECAUTIONS IMPLEMENTED WITH BED LOCKED, BED ALARM ON, BILATERAL SIDE RAILS UP, BED IN THE LOWEST POSITION, AND CALL LIGHT WITHIN EASY REACH OF PATIENT. WILL CONTINUE TO MONITOR PATIENT.
[2020-04-01 07:32] LABS: BASOPHILS % (AUTO) 0.4 % (0.0-2.0); EOSINOPHILS % (AUTO) 2.6 % (0.0-6.0); HEMATOCRIT 28 % (39-51); HEMOGLOBIN 9.3 g/dL (13.5-17.5); LYMPHOCYTES # (AUTO) 1.2 /CMM (0.8-4.8); LYMPHOCYTES % (AUTO) 17.6 % (20.0-44.0); MEAN CORPUSCULAR HGB CONC 34 g/dl (31.0-36.0); MEAN CORPUSCULAR VOLUME 92 fL (80-96); MONOCYTES # (AUTO) 0.5 /CMM (0.1-1.30); MONOCYTES % (AUTO) 7.7 % (2.0-12.0); NEUTROPHILS # (AUTO) 4.7 /CMM (1.8-8.9); NEUTROPHILS % (AUTO) 71.7 % (43.0-81.0); PLATELET COUNT (AUTO) 229 /CMM (150-450); RED BLOOD CELL COUNT(AUTO) 3.02 MIL/uL (4.5-6.0); WHITE BLOOD COUNT (AUTO) 6.6 K/uL (4.3-11.0)
[2020-04-01 07:42] LABS: CALCIUM, SERUM 9.1 mg/dL (8.5-10.1); CREATININE 0.6 mg/dL (0.6-1.3); MAGNESIUM 1.7 mg/dL (1.8-2.4); PHOSPHORUS 3.3 mg/dL (2.5-4.9); POTASSIUM 3.6 mmol/L (3.5-5.1)
[2020-04-01 08:00] VITALS: BP 100/60
[2020-04-01] MEDS: FAMOTIDINE/PF INJ 20 MG/2 ML VIAL IV SCH (08:13)
--- NOTE | 2020-04-01 10:12 | NUR ---
SALES VICE PRESIDENT NOTES INFORMED HOSPITALIST, RAMANA SHELDON DNP, ABOUT PATIENT'S MED RECON. NEEDS TO BE DONE, WILL AWAIT FOR ORDERS AND CONTINUE TO MONITOR PATIENT.
[2020-04-01 10:14] LABS: LYMPHOCYTES % (MANUAL) 17 % (16-48); MONOCYTES % (MANUAL) 3 % (0-11.0); MYELOCYTES % 1 % (0-0); NEUTROPHILS % (MANUAL) 79 (42-76)
[2020-04-01] MEDS: Magnesium 1GM/D5W 100ML PREMIX 100 ML IV SCH ×2 (10:45→11:50)
[2020-04-01 12:00] VITALS: BP 99/65
[2020-04-01] MEDS: CEPHALEXIN MONOHYDRATE 250 MG CAPSULE PO SCH ×2 (12:01→17:07)
[2020-04-01 16:00] VITALS: BP 110/67
[2020-04-01] MEDS: DONEPEZIL 5 MG TABLET PO SCH (17:07)
--- NOTE | 2020-04-01 18:14 | NUR ---
CLIENT ENGAGEMENT SPECIALIST NOTES PATIENT IN BED RESTING COMFORTABLY, ALERT AND ORIENTED X 1, FARSI SPEAKING. PATIENT ON ROOM AIR WITH NO SIGNS OF RESPIRATORY DISTRESS AT THIS TIME. ON BINDER OPERATOR, SINUS RHYTHM 83. PATIENT SKIN KEPT CLEAN, WARM AND DRY TO TOUCH, IV ACCESS INTACT AND PATENT, INFUSING D51/2 NS AT 75 ml/hr. REMOVED BILATERAL SOFT RESTRAINTS AT THIS TIME DUE TO PATIENT BEING COOPERATIVE, AND NOT PULLING ANY IV LINES. PATIENT PRESENTS WITH NO PAIN OR DISCOMFORT AT THIS TIME. MET ALL OF PATIENT'S NEEDS. SAFETY PRECAUTIONS IMPLEMENTED WITH BED LOCKED, BED ALARM ON, BILATERAL SIDE RAILS UP, BED IN THE LOWEST POSITION, AND CALL LIGHT WITHIN EASY REACH OF PATIENT. WILL ENDORSE PLAN OF CARE TO UPCOMING RN.
--- NOTE | 2020-04-01 19:05 | NUR ---
RN OPENING NOTES Received patient awake, resting on bed. On RA, no s/s of discomfort/distress noted at this time. With bilateral soft wrist restraints noted, no s/sx of injury noted. On tele monitor with NSR noted. On fall and aspiration precautions. Will continue to monitor accordingly.
[2020-04-01] MEDS: ENOXAPARIN SODIUM 40 MG/0.4 ML DISP.SYRIN SQ SCH (21:33)
[2020-04-01] MEDS: FAMOTIDINE (20 MG) 20 MG TABLET PO SCH (21:34)
[2020-04-02] VITALS: BP 118/65
[2020-04-02 02:23] VITALS: BP 111/62
[2020-04-02 06:00] VITALS: BP 130/67
[2020-04-02 06:25] LABS: BASOPHILS % (AUTO) 0.3 % (0.0-2.0); HEMATOCRIT 27 % (39-51); HEMOGLOBIN 9.2 g/dL (13.5-17.5); LYMPHOCYTES % (AUTO) 16.2 % (20.0-44.0); MEAN CORPUSCULAR HGB CONC 34 g/dl (31.0-36.0); MEAN CORPUSCULAR VOLUME 91 fL (80-96); MONOCYTES # (AUTO) 0.4 /CMM (0.1-1.30); MONOCYTES % (AUTO) 6.1 % (2.0-12.0); NEUTROPHILS # (AUTO) 4.4 /CMM (1.8-8.9); NEUTROPHILS % (AUTO) 73.4 % (43.0-81.0); PLATELET COUNT (AUTO) 213 /CMM (150-450); RED BLOOD CELL COUNT(AUTO) 2.96 MIL/uL (4.5-6.0)
[2020-04-02] MEDS: INSULIN REGULAR, HUMAN 100 UNIT/ML 3 ML VIAL SQ PRN (06:33)
[2020-04-02 06:35] LABS: CALCIUM, SERUM 8.7 mg/dL (8.5-10.1); CARBON DIOXIDE 26 mmol/L (21-32); CHLORIDE 105 mmol/L (98-107); CREATININE 0.8 mg/dL (0.6-1.3); GLUCOSE 132 mg/dL (74-106); MAGNESIUM 1.9 mg/dL (1.8-2.4); PHOSPHORUS 3.7 mg/dL (2.5-4.9); POTASSIUM 3.6 mmol/L (3.5-5.1); SODIUM SERUM 136 mmol/L (136-145); UREA NITROGEN, BLOOD 8 mg/dL (7-18)
[2020-04-02] MEDS: BLOOD SUGAR DIAGNOSTIC 1 EACH STRIP IN SCH ×3 (06:35→17:26)
--- NOTE | 2020-04-02 06:50 | NUR ---
RN CLOSING NOTES Pt on bed asleep, no new complaints made. Due meds given as ordered. All nursing needs attended. Kept on bed clean, dry and comfortable. Endorsed.
--- NOTE | 2020-04-02 07:31 | NUR ---
PROOF TECHNICIAN HELPER NOTES PATIENT RECEIVED IN BED SLEEPING COMFORTABLY, ALERT AND ORIENTED X 1, FARSI SPEAKING. PATIENT ON ROOM AIR WITH NO SIGNS OF RESPIRATORY DISTRESS AT THIS TIME. ON ZONE MAINTENANCE TECHNICIAN, SINUS RHYTHM 69. PATIENT SKIN WARM AND DRY TO TOUCH, IV ACCESS INTACT AND PATENT, CURRENTLY INFUSING D51/2 NS AT 75 ml/hr. PATIENT HAS BILATERAL SOFT WRIST RESTRAINTS IN PLACE WITH ADEQUATE SKIN CIRCULATION, AND Q 15 MINS VISUAL CHECKS DONE. PATIENT PRESENTS WITH NO PAIN OR DISCOMFORT AT THIS TIME. SAFETY PRECAUTIONS IMPLEMENTED WITH BED LOCKED, BED ALARM ON, BILATERAL SIDE RAILS UP, BED IN THE LOWEST POSITION, AND CALL LIGHT WITHIN EASY REACH OF PATIENT. WILL CONTINUE TO MONITOR PATIENT.
[2020-04-02 08:00] VITALS: BP 123/65
[2020-04-02] MEDS: CEPHALEXIN MONOHYDRATE 250 MG CAPSULE PO SCH ×3 (08:28→17:26)
[2020-04-02] MEDS: FAMOTIDINE (20 MG) 20 MG TABLET PO SCH (08:28)
[2020-04-02] MEDS: IV D5/0.45 NACL 1,000 ML IV PRN (08:56)
[2020-04-02] MEDS ORDERED: MEMANTINE HCL 5 MG TABLET PO SCH (09:00)
[2020-04-02 12:00] VITALS: BP 125/68
[2020-04-02] MEDS ORDERED: CEPH250C PO (14:36)
--- NOTE | 2020-04-02 15:45 | NUR ---
HOME BUILDER NOTES CALLED [facility], SPOKE WITH YURI, . INFORMED SANDWICH BOARD CARRIER TIME WILL BE AT 1830. WILL CONTINUE TO MONITOR PATIENT.
[2020-04-02 16:00] VITALS: BP 133/77
--- NOTE | 2020-04-02 16:30 | NUR ---
LABORATORY VETERINARIAN NOTES REMOVED SOFT WRIST RESTRAINTS, PATIENT CALM AND COOPERATIVE. PATIENT SKIN WNL, WITH ADEQUATE SKIN CIRCULATION AND WILL CONTINUE TO MONITOR PATIENT.
[2020-04-02] MEDS: DONEPEZIL 5 MG TABLET PO SCH (17:26)
--- NOTE | 2020-04-02 19:15 | NUR ---
NICKER NOTES PATIENT ALERT AND ORIENTED X 1 RESTING COMFORTABLY, FARSI SPEAKING. PATIENT ON ROOM AIR WITH NO SIGNS OF RESPIRATORY DISTRESS AT THIS TIME, AND NO SOB NOTED. VITAL SIGNS ARE STABLE. PATIENT SKIN KEPT CLEAN, WARM AND DRY TO TOUCH. SKIN ASSESSMENT DONE, WITH PHOTOS TAKEN. IV ACCESS REMOVED CATHETER TIP INTACT AND APPLIED PRESSURE TO SITE. PATIENT PRESENTS WITH NO PAIN OR DISCOMFORT AT THIS TIME. MET ALL OF PATIENT'S NEEDS. PROVIDED EDUCATED TO PATIENT FOR EXIT CARE, PATIENT HAD NO BELONGINGS. REMOVED ID BAND. PATIENT LEFT UNIT VIA RNEY WITH 2 EMT'S.
== END 2020-04-02 19:15 | DRG 177 ==
LOC: ER 16:48 → TELE2 20:31
PROVIDERS: ADMIT Student in an Organized Health Care Education/Training Program; ATTEND Nurse Practitioner Acute Care
DX: U07.1 COVID-19 (principal); J15.9 Unspecified bacterial pneumonia; G93.41 Metabolic encephalopathy; J12.89 Other viral pneumonia; E44.0 Moderate protein-calorie malnutrition; J98.11 Atelectasis; C78.00 Secondary malignant neoplasm of unspecified lung; E87.1 Hypo-osmolality and hyponatremia; N39.0 Urinary tract infection, site not specified; K25.9 Gastric ulcer, unspecified as acute or chronic, without hemorrhage or perforation; E86.0 Dehydration; R62.7 Adult failure to thrive; F03.90 Unspecified dementia, unspecified severity, without behavioral disturbance, psychotic disturbance, mood disturbance, and anxiety; Z87.820 Personal history of traumatic brain injury; E66.9 Obesity, unspecified; Z68.28 Body mass index [BMI] 28.0-28.9, adult; E11.9 Type 2 diabetes mellitus without complications; I10 Essential (primary) hypertension; I25.10 Atherosclerotic heart disease of native coronary artery without angina pectoris; E78.5 Hyperlipidemia, unspecified; D63.8 Anemia in other chronic diseases classified elsewhere; Z79.84 Long term (current) use of oral hypoglycemic drugs; Z91.81 History of falling; Z87.891 Personal history of nicotine dependence; E78.00 Pure hypercholesterolemia, unspecified; Z90.49 Acquired absence of other specified parts of digestive tract; Z98.890 Other specified postprocedural states; Z79.899 Other long term (current) drug therapy; K21.9 Gastro-esophageal reflux disease without esophagitis; C61 Malignant neoplasm of prostate; B96.20 Unspecified Escherichia coli [E. coli] as the cause of diseases classified elsewhere
CPT/HCPCS: 36415; 71045-TC; 80048-TC; 80076-TC; 81001; 82962-TC; 83605-TC; 83735-TC; 84100-TC; 84443-TC; 84484-TC; 85025-TC; 85378-TC; 85730-TC; 87040-TC; 87081-TC; 87086-TC; 87186-TC; 92526; 92611-TC; 97116-TC; 97530-TC; G0378; J1650; J1815; J3475; J3490; J7030; J7040; J7042; J7050; U0003